=== PATIENT | male | born 1945 | race Caucasian/White ===

== ENCOUNTER 2022-04-04 15:31 | Emergency (ER) | payer MEDICARE, OTHER ==
[2022-04-04 16:12] VITALS: PULSE 62; RESP 16; TEMP 98
--- NOTE | 2022-04-04 17:48 | XR ---
EXAMINATION TYPE: XR shoulder complete LT DATE OF EXAM: 04/04/2022 COMPARISON: NONE HISTORY: Pain TECHNIQUE: 3 view FINDINGS: There is moderately severe osteoarthritis in the glenohumeral joint. No fracture seen. Ther e is calcification in the soft tissues at the medial aspect of the humeral neck. There is comminuted fracture of the lateral end of the clavicle. Scapula appears intact. IMPRESSION: Osteoarthritis. Comminuted clavicle fracture.
--- NOTE | 2022-04-04 17:49 | XR ---
EXAMINATION TYPE: XR clavicle LT DATE OF EXAM: 04/04/2022 COMPARISON: NONE HISTORY: Shoulder pain TECHNIQUE: 2 view FINDINGS: There is comminuted fracture lateral and of the left clavicle. Fracture line is 3 cm from t he AC joint. The acromion appears intact. IMPRESSION: Acute comminuted fracture of the lateral end of the clavicle. Fragments up to 7 mm.
--- NOTE | 2022-04-04 17:51 | ED ---
Fall HPI - General Chief Complaint: Fall Stated Complaint: Broken Collarbone Time Seen by Provider: 04/04/22 17:33 Source: patient, family Mode of arrival: ambulatory - History of Present Illness Initial Comments: This patient is 76-year-old man who states that he was running and tripped over a curb landing and striking the left shoulder. He states that he did feel something pop. He went to his physician's office had an x-ray and was directed come emergency department. There is no weakness or numbness into the left arm. He denies other injuries other than abrasion to the left side of his eyebrow. The patient believes that his tetanus status is up to date. MD Complaint: fall -: hour(s) Fall From: standing When Fall Occurred: 1-3 hours [employer] Fall Witnessed: yes, by family Place Fall Occurred: street Loss of Consciousness: none Prolonged Down Time?: no Location: face Location - Extremities: Left: Shoulder Severity: moderate Quality: aching Context: tripped/slipped - Related Data Previous Rx's Medication Instructions Recorded Ibuprofen [Motrin] 600 mg PO Q8HR PRN #20 tab 04/04/22 traMADol HCl [Ultram] 50 mg PO Q6H PRN #20 tab 04/04/22 Allergies Allergy/AdvReac Type Severity Reaction Status Date / Time codeine Allergy Unknown Verified 04/04/22 16:12 Review of Systems ROS Statement: Those systems with pertinent positive or pertinent negative responses have been documented in the HPI. ROS Other: All systems not noted in ROS Statement are negative. Constitutional: Denies: fever, chills, weakness Eyes: Denies: eye pain Respiratory: Denies: cough, dyspnea Cardiovascular: Denies: chest pain, palpitations, syncope Gastrointestinal: Denies: abdominal pain, vomiting Musculoskeletal: Reports: as per HPI, arthralgia. Denies: back pain Skin: Denies: rash Neurological: Denies: headache, weakness, numbness, paresthesias Past Medical History Past Medical History: Dementia History of Any Multi-Drug Resistant Organisms: None Reported Past Surgical History: No Surgical Hx Reported Past Psychological History: No Psychological Hx Reported Smoking Status: Never smoker Past Alcohol Use History: None Reported Past Drug Use History: None Reported General Exam Limitations: no limitations General appearance: alert, in no apparent distress Head exam: Present: atraumatic, normocephalic Eye exam: Present: normal appearance. Absent: scleral icterus, conjunctival injection Neck exam: Present: full ROM. Absent: tenderness Respiratory exam: Absent: chest wall tenderness GI/Abdominal exam: Present: soft. Absent: tenderness, guarding, rebound Extremities exam: Present: normal inspection, tenderness, normal capillary refill, other (Patient has tenderness to palpation left distal portion of the clavicle. There does appear to be deformity and some overlying swelling.) Back exam: Present: normal inspection. Absent: CVA tenderness (R), CVA tenderness (L), vertebral tenderness Neurological exam: Present: alert Skin exam: Present: warm, dry, intact, normal color. Absent: rash Course Vital Signs 04/04/22 16:06 Temperature 98 F Pulse Rate 62 Respiratory 16 Rate Disposition Clinical Impression: Fall, Clavicle fracture Disposition: HOME SELF-CARE Condition: Good Instructions (If sedation given, give patient instructions): Clavicle Fracture (ED) Prescriptions: Ibuprofen [Motrin] 600 mg PO Q8HR PRN #20 tab PRN Reason: Pain traMADol HCl [Ultram] 50 mg PO Q6H PRN #20 tab PRN Reason: Pain Is patient prescribed a controlled substance at d/c from ED?: Yes Referrals: Sergio Johnson DO [Primary Care Provider] - 1-2 days Meng Best MD [STAFF PHYSICIAN] - 1-2 days
[2022-04-04] MEDS ORDERED: traMADol 50 MG TAB PO STA (18:00)
[2022-04-04] MEDS ORDERED: IBUPROFEN 400 MG TAB PO STA (18:00)
== END 2022-04-04 18:21 | disposition home or self-care (01) ==
LOC: EC 15:31
DX: S42.002A Fracture of unspecified part of left clavicle, initial encounter for closed fracture (principal); Z88.5 Allergy status to narcotic agent; W10.1XXA Fall (on)(from) sidewalk curb, initial encounter
CPT/HCPCS: 99283

== ENCOUNTER 2022-08-25 05:11 | Inpatient (IN) | payer MEDICARE, OTHER ==
[2022-08-25 05:45] LABS: Basophils % (A) 0 %; Eosinophils # (A) 0.2 k/uL (0-0.7); Eosinophils % (A) 3 %; HCT 40.9 % (39.0-53.0); HGB 14.2 gm/dL (13.0-17.5); Lymphocytes # (A) 1.6 k/uL (1.0-4.8); Lymphocytes % (A) 26 %; MCH 31.6 pg (25.0-35.0); MCHC 34.7 g/dL (31.0-37.0); MCV 91.1 fL (80.0-100.0); Mean Platelet Volume 8.7; Monocytes # (A) 0.3 k/uL (0-1.0); Monocytes % (A) 5 %; Neutrophils # (A) 4.1 k/uL (1.3-7.7); Neutrophils % (A) 65 %; Platelet Count 146 k/uL (150-450); RBC 4.49 m/uL (4.30-5.90); RDW 12.8 % (11.5-15.5); WBC 6.4 k/uL (3.8-10.6)
[2022-08-25 05:51] LABS: Albumin 3.6 g/dL (3.5-5.0); Calcium 8.6 mg/dL (8.4-10.2); Potassium 3.8 mmol/L (3.5-5.1); Total Bilirubin 1.4 mg/dL (0.2-1.3); Total Protein 7.1 g/dL (6.3-8.2)
[2022-08-25 06:05] LABS: INR 1.1 (<1.2); Partial Thromboplastin Time 23.9 sec (22.0-30.0); Prothrombin Time 11.9 sec (9.0-12.0)
[2022-08-25 06:42] LABS: Appearance,Urine Cloudy (Clear); Bacteria,Urine Few /hpf; Bilirubin,Urine Negative (Negative); Blood,Urine Trace (Negative); Color,Urine Yellow; Glucose,Urine (UA) Negative (Negative); Ketones,Urine Negative (Negative); Leukocyte Esterase,Urine Large (Negative); Mucus,Urine Occasional /hpf; Nitrite,Urine Positive (Negative); PH, Urine 6.5 (5.0-8.0); Protein,Urine Trace (Negative); RBC,Urine 10 /hpf (0-5); Specific Gravity,Urine 1.017 (1.001-1.035); Urobilinogen,Urine <2.0 mg/dL (<2.0); WBC,Urine >182 /hpf (0-5)
[2022-08-25] MEDS ORDERED: NITROGLYCERIN SL TABS 0.4 MG TAB SUBLINGUAL PRN (07:34)
--- NOTE | 2022-08-25 08:21 | ED ---
Chest Pain HPI - General Chief Complaint: Chest Pain Stated Complaint: Chest Pain Time Seen by Provider: 08/25/22 05:19 Source: patient, family, EMS Mode of arrival: EMS Limitations: altered mental status - History of Present Illness Initial Comments: This patient is a 77-year-old man who presents with complaint of substernal chest pain. History comes from both the patient and family members who are with him. He reports that he had a ground-level fall and struck the anterior chest. He is not able to characterize the pain well. Indicates it is moderate intensity. No relieving factors. Little worse with pressing on the chest. Patient's family notes that he seems to be a little more confused than his usual and states that the last time that he was like this he had urinary tract infection. MD Complaint: chest pain -: unknown Onset: during rest Pain Location: substernal Pain Radiation: none Quality: dull Consistency: constant Improves With: nothing Worsens With: nothing Treatments Prior to Arrival: aspirin - Related Data Home Medications Medication Instructions Recorded Confirmed Memantine [Namenda] 5 mg PO BID 08/25/22 08/25/22 Tamsulosin [Flomax] 0.4 mg PO DAILY 08/25/22 08/25/22 Previous Rx's Medication Instructions Recorded Amoxic-Pot Clav 875-125Mg 1 tab PO Q12HR 1 Days #2 tab 08/28/22 [Augmentin 875-125] Aspirin 81 mg PO DAILY tab 08/28/22 Atorvastatin [Lipitor] 80 mg PO DAILY #30 tab 08/28/22 Clopidogrel [Plavix] 75 mg PO DAILY #30 tab 08/28/22 Isosorbide Mononitrate ER [Imdur] 30 mg PO DAILY #30 tab 08/28/22 Losartan [Cozaar] 12.5 mg PO DAILY #30 tab 08/28/22 Metoprolol Tartrate [Lopressor] 25 mg PO BID #60 tab 08/28/22 Allergies Allergy/AdvReac Type Severity Reaction Status Date / Time codeine Allergy Unknown Verified 09/04/22 13:51 Review of Systems ROS Statement: Those systems with pertinent positive or pertinent negative responses have been documented in the HPI. ROS Other: All systems not noted in ROS Statement are negative. Constitutional: Reports: weakness. Denies: fever, chills Respiratory: Denies: cough, dyspnea Cardiovascular: Reports: chest pain. Denies: palpitations, edema Gastrointestinal: Denies: abdominal pain, vomiting, diarrhea Genitourinary: Denies: dysuria, frequency Musculoskeletal: Denies: back pain Skin: Denies: rash Neurological: Denies: headache, weakness EKG Findings - EKG Results: EKG: interpreted by ADE, sinus rhythm (Rate 67 bpm), normal axis, normal QRS - Blocks, [place], Hypertrophy, ST Abn: Repolarization changes or abnormalities: nonspecific abnormality, ST segment, and/or T wave Past Medical History Past Medical History: Dementia History of Any Multi-Drug Resistant Organisms: None Reported Past Surgical History: No Surgical Hx Reported Past Psychological History: No Psychological Hx Reported Smoking Status: Never smoker Past Alcohol Use History: None Reported Past Drug Use History: None Reported - Past Family History Mother Family Medical History: Unable to Obtain Brother(s) Family Medical History: Deep Vein Thrombosis (DVT), Myocardial Infarction ([place]), Renal Disease General Exam General appearance: alert, in no apparent distress Head exam: Present: atraumatic, normocephalic Eye exam: Present: normal appearance. Absent: scleral icterus, conjunctival injection Neck exam: Present: normal inspection Respiratory exam: Present: normal lung sounds bilaterally, chest wall tenderness (Minimal tenderness adjacent sternum). Absent: respiratory distress, wheezes, rales, rhonchi, stridor, accessory muscle use Cardiovascular Exam: Present: regular rate, normal rhythm, normal heart sounds. Absent: systolic murmur, diastolic murmur, rubs, gallop GI/Abdominal exam: Present: soft. Absent: distended, tenderness, guarding, rebound, rigid, mass Extremities exam: Present: normal inspection, normal capillary refill. Absent: pedal edema, calf tenderness Back exam: Present: normal inspection. Absent: CVA tenderness (R), CVA tenderness (L) Neurological exam: Present: alert Skin exam: Present: warm, dry, intact, normal color. Absent: rash Course Vital Signs 08/25/22 08/25/22 08/25/22 05:13 05:50 07:36 Temperature 97.5 F L Pulse Rate 90 61 71 Respiratory 18 16 18 Rate Blood Pressure 122/74 114/76 118/75 O2 Sat by Pulse 94 L 95 96 Oximetry 08/25/22 08:15 Temperature Pulse Rate 61 Respiratory 18 Rate Blood Pressure 121/75 O2 Sat by Pulse 95 Oximetry Chest Pain MDM - MDM This patient is 77-year-old man presenting with chest pain that he stated was due to a fall though family disputes this. They do he is more confused and this is consistent with previous urinary tract infection. The patient is found to have urinary tract infection and also elevated troponin I. The patient will be admitted for antibiotic therapy and to have serial troponin measurements. The patient did have a chest x-ray which I interpreted as not showing acute infiltrate, pneumothorax, or congestive heart failure. Previous clavicle fracture Was pt. sent in by a medical professional or institution (, PA, [employer] [facility], urgent care, hospital, or skilled nursing...) When possible be specific @ -[No] Did you speak to anyone other than the patient for history (EMS, parent, family, police, friend...)? What history was obtained from this source @ -[Family is at bedside Did you review nursing and triage notes (agree or disagree)? Why? @ -[I reviewed and agree with nursing and triage notes] Were old charts reviewed (outside hosp., previous admission, EMS record, old EKG, old radiological studies, urgent care reports/EKG's, skilled nursing records)? Report findings @ -[No old charts were reviewed] Differential Diagnosis (chest pain, altered mental status, abdominal pain women, abdominal pain men, vaginal bleeding, weakness, fever, dyspnea, syncope, headache, dizziness, GI bleed, back pain, seizure, CVA, palpatations, mental health, musculoskeletal)? @ -[Differential Altered Mental Status: Hypoglycemia, DKA, hypercapnia, ETOH, overdose, CO poisoning, trauma, myxedema coma, HTN encephalopathy, infection, encephalitis, psychosis, intercranial hemorrhage, hepatic encephalopathy, meningitis, CVA, this is not meant to be an all-inclusive list Differential Chest Pain: Stable Angina, Unstable Angina, STEMI, NSTEMI Aortic Dissection, Pneumothorax, Musculoskeletal, Esophageal Spasm GERD, Cholecystitis, Pancreatitis, Zoster, this is not meant to be an all-inclusive list. EKG interpreted by me (3pts min.). @ -[As above] X-rays interpreted by me (1pt min.). @ -[As above CT interpreted by me (1pt min.). @ -[None done] U/S interpreted by me (1pt. min.). @ -[None done] What testing was considered but not performed or refused? (CT, X-rays, U/S, labs)? Why? @ -[None] What meds were considered but not given or refused? Why? @ -[None] Did you discuss the management of the patient with other professionals (professionals i.e. , PA, [employer], lab, RT, psych nurse, social media marketing specialist, jboss developer, teacher, youth officer, correctional case records supervisor)? Give summary @ -[Admitting physician Was smoking cessation discussed for >3mins.? @ -[No] Was critical care preformed (if so, how long)? @ -[No] Were there social determinants of health that impacted care today? How? (Homelessness, low income, unemployed, alcoholism, drug addiction, transportation, low edu. Level, literacy, decrease access to med. care, alf, rehab)? @ -[No] Was there de-escalation of care discussed even if they declined (Discuss DNR or withdrawal of care, Hospice)? DNR status @ -[No] What co-morbidities impacted this encounter? (DM, HTN, Smoking, COPD, CAD, Cancer, CVA, ARF, Chemo, Hep., AIDS, mental health diagnosis, sleep apnea, morbid obesity)? @ -[None] Was patient admitted / discharged? Hospital course, mention meds given and route, prescriptions, significant lab abnormalities, going to OR and other pertinent info. @ -[Admitted for antibiotic therapy, serial cardiac enzymes and cardiology consultation Undiagnosed new problem with uncertain prognosis? @ -[No] Drug Therapy requiring intensive monitoring for toxicity (Heparin, Nitro, Insulin, Cardizem)? @ -[No] Were any procedures done? @ -[No] Diagnosis/symptom? @ -[1. Urinary tract infection 2. Altered mental status 3. NSTEMI Acute, or Chronic, or Acute on Chronic? @ -[Acute Uncomplicated (without systemic symptoms) or Complicated (systemic symptoms)? @ -[Complicated Side effects of treatment? @ -[No] Exacerbation, Progression, or Severe Exacerbation? @ -[No] Poses a threat to life or bodily function? How? (Chest pain, [place], [place], pneumonia, PE, COPD, DKA, ARF, appy, cholecystitis, CVA, Diverticulitis, Homicidal, Suicidal, threat to staff... and all critical care pts) @ -[Yes, untreated urinary tract infection can progress to sepsis and . Disposition Clinical Impression: Urinary tract infection, NSTEMI (non-ST elevated myocardial infarction) Disposition: ADMITTED IP TO THIS HOSP Condition: Stable
[2022-08-25] MEDS ORDERED: LEVOFLOXACIN 750 MG TAB PO SCH (09:30)
--- NOTE | 2022-08-25 09:54 | XR ---
EXAMINATION TYPE: XR chest 2V DATE OF EXAM: 08/25/2022 COMPARISON: NONE HISTORY: Left shoulder pain following trauma TECHNIQUE: Frontal and lateral views of the chest are obtained. FINDINGS: There is a persistent fracture the distal left clavicle. There is marked degeneration of the left gle nohumeral joint and moderate degeneration of the right glenohumeral joint. The lungs are clear. There is no pleural effusion or pneumothorax. The heart size normal and the pulm onary vasculature is not congested. IMPRESSION: 1. No acute cardiopulmonary disease. 2. 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 Degeneration of the bilateral glenohumeral joints.
[2022-08-25] MEDS ORDERED: HEPARIN SODIUM 1,000 UN/ML (10ML VL) IV PRN (10:01)
[2022-08-25] MEDS ORDERED: HEPARIN SODIUM 1,000 UN/ML (10ML VL) IV ONE (10:01)
[2022-08-25] MEDS: HEPARIN SOD,PORK IN 0.45% NACL 25,000 UNIT in 0.45% NACL 1 250ML.BAG IV SCH (10:11)
--- NOTE | 2022-08-25 11:08 | P.HPIM ---
History of Present Illness H&P Date: 08/25/22 Chief Complaint: chest pain Patient is a 77-year-old male with a history of urinary tract infection, BPH, and memory impairment who presented to the ER with complaints of chest pain. In the ER he underwent extensive evaluation. On arrival vital signs within normal limits. Platelets were 146, d-dimer age-adjusted normal at 0.67, sodium 136, carbon dioxide 20, BUN 24, creatinine 1.44, glucose 116, total bilirubin 1.4, and troponin 0.171. Urinalysis was consistent with urinary tract infection. He was given a dose of aspirin by EMS. He was given a dose of Levaquin in the emergency department and arrangements were made for admission. His second tr oponinwas elevating at 1 and he was started on a heparin drip. Patient seen and examined at bedside with family present. He reports that he awoke today with complaints of chest pain on the left side. It does not radiate. He denies any pain up into his arms Lasch neck/jaw. He denies any shortness of breath, nausea, lightheadedness, dizziness. He has no history of any heart disease. His brother did have what sounds like an aortic aneurysm. He reports that he fell yesterday striking the left side of his chest and has been having chest pain since that time. His reports he did not tell her about the fall or the chest pain until this morning. They have noted increased urinary frequency the last few days and he does have a history of urinary tract infection in the past. He does not have frequent falls but fell last in March [facility]. Family reports a history of memory impairment. Vital signs reviewed General: nontoxic, no distress, appears at stated age Derm: warm, dry Eyes: EOMI, no lid lag, anicteric sclera, pupils equal round reactive to light ENT: Nose and ears atraumatic, no thrush, no pharyngeal erythema Cardiovascular: S1S2 reg, no murmur, positive posterior tibial pulse bilateral, no edema, capillary refill less than 2 seconds Lungs: clear to auscultation bilateral, no rhonchi, no rales, no wheeze, no accessory muscle use Abdominal: soft, nontender to palpation, no guarding, no appreciable organomegaly, normal bowel sounds Ext: no gross muscle atrophy, muscle strength 5 out of 5 in all 4 extremities, no contractures Neuro: CN II-XII grossly intact, light touch intact all 4 extremities, finger to nose within normal limits, Psych: Alert, oriented, appropriate affect Assessment: Non-ST segment elevated myocardial infarction - Type I versus type II given all -I asked the ER physician to obtain a chest x-ray which does not show any signs of pulmonary or cardiac contusion and there is no bruising at the site of his rib pain Urinary tract infection, uncomplicated Memory impairment Fall Imaging: Chest x-ray is reviewed by myself reveals no acute process EKG reviewed by me at a rate of 67 with less than 1 mm J point elevation in leads II, II, AVF Data Review: complaints of chest pain. In the ER he underwent extensive evaluation. On arrival vital signs within normal limits. Platelets were 146, d-dimer age- adjusted normal at 0.67, sodium 136, carbon dioxide 20, BUN 24, creatinine 1.44, glucose 116, total bilirubin 1.4, and troponin 0.171. Urinalysis was consistent with urinary tract infection. Plan: - Admit to Telemetry Unit - Heparin gtt, monitor ptt - NPO - Called for echo - Await repeat troponin - resume flomax 0.4 mg daily, Namenda 5 mg PO BID - ASA 81 mg daily, Lipitor 80 mg, Metoprolol 12.5 mg PO BID - Repeat EKG in AM - Safe and supportive environment - Await cardio consult The patient is admitted with an anticipated greater than 2 midnight stay for evaluation of [NSTEMI]. Surrogate decision-maker: CODE STATUS: Full code, no prolonged mechanical ventilation DVT prophylaxis: Heparin gtt Discussed with: Patient, nursing, family Anticipated discharge date: pending clinical course Anticipated discharge place: pending clinical course This dictation was prepared using [employer] voice recognition software. Though every attempt is made to correct errors during during dictation some may still exist. Past Medical History Past Medical History: Dementia, Memory Impairment, Prostate Disorder Additional Past Medical History / Comment(s): UTI in the past History of Any Multi-Drug Resistant Organisms: None Reported Past Surgical History: No Surgical Hx Reported Past Anesthesia/Blood Transfusion Reactions: No Reported Reaction Past Psychological History: No Psychological Hx Reported Smoking Status: Never smoker Past Alcohol Use History: None Reported Past Drug Use History: None Reported - Past Family History Mother Family Medical History: Unable to Obtain Brother(s) Family Medical History: Deep Vein Thrombosis (DVT), Myocardial Infarction ([place]), Renal Disease Medications and Allergies Home Medications Medication Instructions Recorded Confirmed Type Ibuprofen [Motrin] 600 mg PO Q8HR PRN #20 tab 04/04/22 Rx Memantine [Namenda] 5 mg PO BID 08/25/22 08/25/22 History Tamsulosin [Flomax] 0.4 mg PO DAILY 08/25/22 08/25/22 History Allergies Allergy/AdvReac Type Severity Reaction Status Date / Time codeine Allergy Unknown Verified 04/04/22 16:12 Physical Exam Osteopathic Statement: *. No significant issues noted on an osteopathic st ructural exam other than those noted in the History and Physical/Consult. Vitals: Vital Signs Temp Pulse Pulse Resp BP BP Pulse Ox 08/25/22 09:28 97.5 F L 69 18 111/73 96 08/25/22 08:15 61 18 121/75 95 08/25/22 07:36 71 18 118/75 96 08/25/22 05:50 61 16 114/76 95 08/25/22 05:13 97.5 F L 90 18 122/74 94 L Intake and Output 08/24/22 08/25/22 08/25/22 22:59 06:59 14:59 Other: Weight 74.843 kg 74.843 kg Results CBC & Chem 7: 08/25/22 05:20 08/25/22 05:20 Labs: Abnormal Lab Results - Last 24 Hours (Table) 08/25/22 08/25/22 08/25/22 Range/Units 05:20 05:20 05:20 Plt Count 146 L (150-450) k/uL D-Dimer 0.67 H (<0.60) mg/L FEU Sodium 136 L (137-145) mmol/L Carbon Dioxide 20 L (22-30) mmol/L BUN 24 H (9-20) mg/dL Creatinine 1.44 H (0.66-1.25) mg/dL Glucose 116 H (74-99) mg/dL Total Bilirubin 1.4 H (0.2-1.3) mg/dL Troponin I (0.000-0.034) ng/mL Urine Protein (Negative) Urine Blood (Negative) Ur Leukocyte Esterase (Negative) Urine RBC (0-5) /hpf Urine WBC (0-5) /hpf Urine Bacteria (None) /hpf Urine Mucus (None) /hpf 08/25/22 08/25/22 08/25/22 Range/Units 05:20 06:05 08:29 Plt Count (150-450) k/uL D-Dimer (<0.60) mg/L FEU Sodium (137-145) mmol/L Carbon Dioxide (22-30) mmol/L BUN (9-20) mg/dL Creatinine (0.66-1.25) mg/dL Glucose (74-99) mg/dL Total Bilirubin (0.2-1.3) mg/dL Troponin I 0.171 H* 1.180 H* (0.000-0.034) ng/mL Urine Protein Trace H (Negative) Urine Blood Trace H (Negative) Ur Leukocyte Esterase Large H (Negative) Urine RBC 10 H (0-5) /hpf Urine WBC >182 H (0-5) /hpf Urine Bacteria Few H (None) /hpf Urine Mucus Occasional H (None) /hpf Thrombosis Risk Factor Assmnt - Choose All That Apply Each Risk Factor Represents 3 Points: Age 75 years or older Thrombosis Risk Factor Assessment Total Risk Factor Score: 3 Thrombosis Risk Factor Assessment Level: Moderate Risk
[2022-08-25] MEDS ORDERED: NALOXONE 0.4 MG/ML 1 ML VIAL IV PRN (11:09)
[2022-08-25] MEDS ORDERED: ONDANSETRON 4 MG/2 ML VIAL IVP PRN (11:09)
[2022-08-25] MEDS ORDERED: MELATONIN 3 MG TABLET PO PRN (11:09)
[2022-08-25] MEDS: ATORVASTATIN 80 MG TAB PO SCH (11:47)
[2022-08-25] MEDS: MEMANTINE 5 MG TAB PO SCH ×2 (11:47→20:21)
[2022-08-25] MEDS: TAMSULOSIN 0.4 MG CAP.ER.24H PO SCH (11:47)
[2022-08-25 12:19] LABS: Basophils % (A) 0 %; Eosinophils # (A) 0.1 k/uL (0-0.7); Eosinophils % (A) 1 %; HCT 43.3 % (39.0-53.0); HGB 14.7 gm/dL (13.0-17.5); Lymphocytes # (A) 1.3 k/uL (1.0-4.8); Lymphocytes % (A) 20 %; MCHC 33.9 g/dL (31.0-37.0); MCV 91.6 fL (80.0-100.0); Mean Platelet Volume 8.5; Monocytes # (A) 0.3 k/uL (0-1.0); Monocytes % (A) 5 %; Neutrophils # (A) 4.6 k/uL (1.3-7.7); Neutrophils % (A) 73 %; Platelet Count 147 k/uL (150-450); RBC 4.73 m/uL (4.30-5.90); RDW 12.9 % (11.5-15.5); WBC 6.3 k/uL (3.8-10.6)
--- NOTE | 2022-08-25 12:34 | P.CRDCN ---
History of Present Illness Consult date: 08/25/22 Consult reason: chest pain, other (elevated trop) Chief complaint: chest pain History of present illness: History of present illness: Patient is a pleasant 77-year-old male with significant past medical history of prior UTIs, BPH, and dementia who presented with complaints of chest pain. Patient is a poor historian and unable to recall what happened. Family at bedside reports patient with a history of dementia and mentation is at his baseline. Spouse at bedside reports that he woke up about 4 AM this morning co mplaining of chest pain. Troponin was abnormal at 0.171, 1.180. UA was positive for infection. EKG shows sinus rhythm with nonspecific T-wave abnormalities, 67 bpm. Chest x-ray shows no acute findings, nonunion of the distal left clavicle fracture. He was started on a heparin drip. He denies any chest pain or shortness of breath presently. His main complaint currently is burning with urination. REVIEW OF SYSTEMS: No fever or chills. No cough or expectoration. No diaphoresis. Patient denies headache, dizziness, blurred vision, double vision. Patient denies any stomach discomfort. No nausea, vomiting. No hematochezia. No hematemesis. Denies any black stools or blood in his stools. Reports dysuria. No muscle weakness or numbness. No chest pain or pressure. PHYSICAL EXAMINATION: This is a 77-year-old male in no apparent distress at the time of my examination. HEENT: Head is atraumatic, normocephalic. Pupils are equal, round. Sclerae anicteric. Conjunctivae are clear. Mucous membranes of the mouth are moist. Neck is supple. There is no jugular venous distention. No carotid bruit is heard. CHEST EXAMINATION: Lungs are clear to auscultation. No chest wall tenderness is noted on palpation or with deep breathing. HEART EXAMINATION: Heart regular rate and rhythm. S1, S2 heard. No murmurs, gallops or rub. ABDOMEN: Soft, nontender. Bowel sounds are heard. No organomegaly noted. EXTREMITIES: 2+ peripheral pulses with no evidence of peripheral edema and no calf tenderness noted. NEUROLOGIC EXAMINATION: Patient is awake, alert and oriented x3. IMPRESSION AND PLAN: NSTEMI Elevated troponin Chest pain, concerning for unstable angina Urinary tract infection Dementia PLAN: Family at bedside was updated on results and plan of care. We discussed the recommendation for heart catheterization to further evaluate for heart blockage and intervention if indicated. Risks and benefits of procedure were discussed. We'll plan to proceed with heart catheterization tomorrow as long as he remains stable from his urinary tract infection. We'll check echocardiogram to evaluate heart function and structure. Continue to trend troponin. Patient was instructed to notify us if any chest pain recurs. Continue heparin drip for now. Nothing by mouth after midnight. I am dictating on behalf of Dr. Leonardo Padron's history/physical and assessment/plan. Past Medical History Past Medical History: Dementia, Memory Impairment, Prostate Disorder Additional Past Medical History / Comment(s): UTI in the past History of Any Multi-Drug Resistant Organisms: None Reported Past Surgical History: No Surgical Hx Reported Past Anesthesia/Blood Transfusion Reactions: No Reported Reaction Past Psychological History: No Psychological Hx Reported Smoking Status: Never smoker Past Alcohol Use History: None Reported Past Drug Use History: None Reported - Past Family History Mother Family Medical History: Unable to Obtain Brother(s) Family Medical History: Deep Vein Thrombosis (DVT), Myocardial Infarction ([place]), Renal Disease Medications and Allergies Home Medications Medication Instructions Recorded Confirmed Type Memantine [Namenda] 5 mg PO BID 08/25/22 08/25/22 History Tamsulosin [Flomax] 0.4 mg PO DAILY 08/25/22 08/25/22 History Allergies Allergy/AdvReac Type Severity Reaction Status Date / Time codeine Allergy Unknown Verified 08/25/22 11:14 Physical Exam Vitals: Vital Signs Temp Pulse Pulse Resp BP BP Pulse Ox 08/25/22 11:55 97.4 F L 78 18 106/71 95 08/25/22 09:28 97.5 F L 69 18 111/73 96 08/25/22 08:15 61 18 121/75 95 08/25/22 07:36 71 18 118/75 96 08/25/22 05:50 61 16 114/76 95 08/25/22 05:13 97.5 F L 90 18 122/74 94 L Intake and Output 08/24/22 08/25/22 08/25/22 22:59 06:59 14:59 Other: Weight 74.843 kg 74.843 kg Results 08/25/22 11:50 08/25/22 05:20 Cardiac Enzymes 08/25/22 08/25/22 08/25/22 Range/Units 05:20 05:20 08:29 AST 21 (17-59) U/L Troponin I 0.171 H* 1.180 H* (0.000-0.034) ng/mL Coagulation 08/25/22 Range/Units 05:20 PT 11.9 (9.0-12.0) sec APTT 23.9 (22.0-30.0) sec CBC 08/25/22 08/25/22 Range/Units 05:20 11:50 WBC 6.4 6.3 (3.8-10.6) k/uL RBC 4.49 4.73 (4.30-5.90) m/uL Hgb 14.2 14.7 (13.0-17.5) gm/dL Hct 40.9 43.3 (39.0-53.0) % Plt Count 146 L 147 L (150-450) k/uL Comprehensive Metabolic Panel 08/25/22 Range/Units 05:20 Sodium 136 L (137-145) mmol/L Potassium 3.8 (3.5-5.1) mmol/L Chloride 106 (98-107) mmol/L Carbon Dioxide 20 L (22-30) mmol/L BUN 24 H (9-20) mg/dL Creatinine 1.44 H (0.66-1.25) mg/dL Glucose 116 H (74-99) mg/dL Calcium 8.6 (8.4-10.2) mg/dL AST 21 (17-59) U/L ALT 16 (4-49) U/L Alkaline Phosphatase 90 (38-126) U/L Total Protein 7.1 (6.3-8.2) g/dL Albumin 3.6 (3.5-5.0) g/dL Current Medications Generic Name Dose Route Start Last Admin Trade Name Freq PRN Reason Stop Dose Admin Acetaminophen 650 mg 08/25/22 11:04 Acetaminophen Tab 325 Mg Tab PO Q4HR PRN Pain Aspirin 81 mg 08/26/22 09:00 Aspirin 81 Mg PO DAILY [facility] Atorvastatin Calcium 80 mg 08/25/22 12:00 08/25/22 11:47 Atorvastatin 80 Mg Tab PO 80 mg DAILY [facility] Administration Heparin Sodium (Porcine) 0 unit 08/25/22 10:01 Heparin Sodium 1,000 Un/Ml (10ml Vl) IV PER PROTOCOL PRN Low PTT Protocol Heparin Sodium/Sodium Chloride 250 mls @ 8.981 mls/hr 08/25/22 10:30 08/25/22 10:11 25,000 unit/ Sodium Chloride IV 12 units/kg/hr .Q24H JENSEN 8.981 mls/hr Administration Protocol 12 UNITS/KG/HR Ceftriaxone Sodium 1 gm/ 50 mls @ 100 mls/hr 08/26/22 09:00 Sodium Chloride IVPB Q24HR [facility] Protocol Melatonin 3 mg 08/25/22 11:09 Melatonin 3 Mg Tablet PO HS PRN Insomnia Memantine 5 mg 08/25/22 11:15 08/25/22 11:47 Memantine 5 Mg Tab PO 5 mg BID JENSEN Administration Metoprolol Tartrate 12.5 mg 08/25/22 21:00 Metoprolol Tartrate 12.5 Mg Tab PO BID [facility] Naloxone HCl 0.2 mg 08/25/22 11:09 Naloxone 0.4 Mg/Ml 1 Ml Vial IV Q2M PRN Opioid Reversal Nitroglycerin 0.4 mg 08/25/22 07:34 Nitroglycerin Sl Tabs 0.4 Mg Tab SUBLINGUAL Q5M PRN Chest Pain Ondansetron HCl 4 mg 08/25/22 11:09 Ondansetron 4 Mg/2 Ml Vial IVP Q8HR PRN Nausea And Vomiting Tamsulosin HCl 0.4 mg 08/25/22 11:15 08/25/22 11:47 Tamsulosin 0.4 Mg Cap.Er.24h PO 0.4 mg DAILY JENSEN Administration Intake and Output 08/24/22 08/25/22 08/25/22 22:59 06:59 14:59 Other: Weight 74.843 kg 74.843 kg Patient Weight 08/26/22 06:59 Weight 74.843 kg 08/25/22 11:50 08/25/22 05:20
--- NOTE | 2022-08-25 12:58 | CA ---
Transthoracic Echo Report Name: Wiliam Collins Age: 77 Gender: M : 1945 Exam Date: 08/25/2022 11:07 Exam Location: [facility] Ht (in): 72 Wt (lb): 170 Ordering Physician: Leelee Peralta DO Attending/Referring Phys: [id number], Kathryn Workshop Manager Cesar Melgar RDCS Procedure CPT: Indications: nstemi Cardiac Hx: HTN Technical Quality: Fair Contrast 1: Total Dose (mL): Contrast 2: Total Dose (mL): MEASUREMENTS (Male / Female) Normal Values 2D ECHO LV Diastolic Diameter PLAX 3.5 cm 4.2 - 5.9 / 3.9 - 5.3 cm LV Systolic Diameter PLAX 2.5 cm LV Fractional Shortening PLAX 29.3 % IVS Diastolic Thickness 1.3 cm 0.6 - 1.0 / 0.6 - 0.9 cm IVS Systolic Thickness 1.5 cm LVPW Diastolic Thickness 1.9 cm 0.6 - 1.0 / 0.6 - 0.9 cm LVPW Systolic Thickness 1.5 cm LV Relative Wall Thickness 0.9 RV Internal Dim ED PLAX 3.9 cm LVOT Diameter 2.4 cm LA Systolic Diameter LX 3.3 cm 3.0 - 4.0 / 2.7 - 3.8 cm LV Diastolic Volume MOD BP 88.6 cm??? 67 - 155 / 56 - 104 cm??? LV Systolic Volume MOD BP 47.0 cm??? 22 - 58 / 19 - 49 cm??? LV Ejection Fraction MOD BP 46.9 % >= 55 % LV Stroke Volume MOD BP 41.6 cm??? LV Diastolic Volume MOD 4C 92.9 cm??? LV Systolic Volume MOD 4C 45.9 cm??? LV Ejection Fraction MOD 4C 50.6 % LV Stroke Volume MOD 4C 47.0 cm??? LV Diastolic Length 4C 9.2 cm LV Systolic Length 4C 8.7 cm LV Diastolic Volume MOD 2C 82.6 cm??? LV Systolic Volume MOD 2C 43.8 cm??? LV Ejection Fraction MOD 2C 47.0 % LV Stroke Volume MOD 2C 38.9 cm??? LV Diastolic Length 2C 8.9 cm LV Systolic Length 2C 7.8 cm M-MODE Aortic Root Diameter MM 3.5 cm LA Systolic Diameter MM 4.3 cm LA Ao Ratio MM 1.2 MV E Point Septal Separation 1.2 cm AV Cusp Separation MM 1.4 cm DOPPLER AV Peak Velocity 72.7 cm/s AV Peak Gradient 2.1 mmHg MV Deceleration [place] 117.3 cm/s??? Mitral E Point Velocity 29.8 cm/s Mitral A Point Velocity 52.8 cm/s Mitral E to A Ratio 0.6 MV Deceleration Time 254.3 ms MV E' Velocity 4.9 cm/s Mitral E to MV E' Ratio 6.1 TR Peak Velocity 161.2 cm/s TR Peak Gradient 10.4 mmHg Right Ventricular Systolic Press 20.4 mmHg PV Peak Velocity 62.8 cm/s PV Peak Gradient 1.6 mmHg FINDINGS Left Ventricle Left ventricular ejection fraction is estimated at 45 %. Borderline left ventricular hypertrophy. Grade 1 diastolic dysfunction. Normal basal systolic function. [place] hypokinetic. Right Ventricle Normal right ventricular size and function. Right Atrium Normal right atrial size. Left Atrium Normal left atrial size. Mitral Valve Mitral valve thickened. Trace to mild mitral regurgitation. Aortic Valve Trileaflet aortic valve. No aortic stenosis. No aortic regurgitation. Tricuspid Valve Mild tricuspid regurgitation. Pulmonic Valve Structurally normal pulmonic valve. Pericardium Normal pericardium. No pericardial effusion. Aorta Mildly dilated aortic annulus. CONCLUSIONS Left ventricular ejection fraction 45% Apical hypokinesis with basal sparing, may be related to wraparound LAD disease versus Takatsubo's cardiomyopathy Trace to mild mitral regurgitation Mild tricuspid regurgitation Previewed by: Dr. Leonardo Padron DO (Electronically Signed) Final Date: 25 August 2022 12:58
[2022-08-25 13:03] LABS: INR 1.3 (<1.2); Partial Thromboplastin Time 79.3 sec (22.0-30.0); Prothrombin Time 12.9 sec (9.0-12.0)
[2022-08-25] MEDS: METOPROLOL TARTRATE 12.5 MG TAB PO SCH (20:21)
[2022-08-26] MEDS: ATORVASTATIN 80 MG TAB PO SCH (06:43)
[2022-08-26] MEDS: ASPIRIN 81 MG PO SCH (06:43)
[2022-08-26] MEDS: METOPROLOL TARTRATE 12.5 MG TAB PO SCH ×2 (06:43→20:49)
[2022-08-26] MEDS: TAMSULOSIN 0.4 MG CAP.ER.24H PO SCH (06:43)
[2022-08-26] MEDS: MEMANTINE 5 MG TAB PO SCH ×2 (06:46→20:48)
[2022-08-26] MEDS ORDERED: HEPARIN SODIUM,PORCINE 2,500 UNIT in SODIUM CHLORIDE 0.9% 250 ML IRRIGATION PRN (07:00)
[2022-08-26] MEDS ORDERED: HEPARIN SODIUM,PORCINE 10,000 UNIT in SODIUM CHLORIDE 0.9% 1,000 ML IRRIGATION PRN (07:00)
[2022-08-26 08:57] LABS: Basophils % (A) 0 %; Eosinophils # (A) 0.1 k/uL (0-0.7); Eosinophils % (A) 2 %; HGB 14.1 gm/dL (13.0-17.5); Lymphocytes # (A) 1.3 k/uL (1.0-4.8); Lymphocytes % (A) 26 %; MCH 30.2 pg (25.0-35.0); MCHC 32.9 g/dL (31.0-37.0); MCV 91.9 fL (80.0-100.0); Mean Platelet Volume 9.3; Monocytes # (A) 0.3 k/uL (0-1.0); Monocytes % (A) 5 %; Neutrophils # (A) 3.2 k/uL (1.3-7.7); Neutrophils % (A) 65 %; Platelet Count 141 k/uL (150-450); RBC 4.69 m/uL (4.30-5.90); WBC 4.9 k/uL (3.8-10.6)
[2022-08-26] MEDS ORDERED: ASPIRIN 325 MG TAB PO SCH (09:00)
[2022-08-26 09:04] LABS: INR 1.2 (<1.2); Prothrombin Time 12.6 sec (9.0-12.0)
[2022-08-26] MEDS ORDERED: NITROGLYCERIN SL TABS 0.4 MG TAB SUBLINGUAL PRN (09:47)
[2022-08-26] MEDS ORDERED: ALPRAZolam 0.5 MG TAB PO PRN (09:47)
[2022-08-26] MEDS ORDERED: ATORVASTATIN 80 MG TAB PO STA (09:47)
[2022-08-26] MEDS ORDERED: ALPRAZolam 0.25 MG TAB PO PRN (09:47)
[2022-08-26] MEDS ORDERED: ASPIRIN 81 MG PO STA (09:53)
--- NOTE | 2022-08-26 11:26 | P.PN ---
Subjective Progress Note Date: 08/26/22 Patient is a 77-year-old male with a history of urinary tract infection, BPH, and memory impairment who presented to the ER with complaints of chest pain. In the ER he underwent extensive evaluation. On arrival vital signs within normal limits. Platelets were 146, d-dimer age-adjusted normal at 0.67, sodium 136, carbon dioxide 20, BUN 24, creatinine 1.44, glucose 116, total bilirubin 1.4, and troponin 0.171. Urinalysis was consistent with urinary tract infection. He was given a dose of aspirin by EMS. He was given a dose of Levaquin in the emergency department and arrangements were made for admission. His second troponin was elevating at 1 and he was started on a heparin drip. Cardiology was contacted. He underwent echocardiogram which shows ejection fraction 45%. Patient seen and examined at bedside. No additional chest pain. Denies any shortness of breath, nausea, vomiting. Family present at bedside and all questions answered. Vital signs reviewed General: nontoxic, no distress, appears at stated age Cardiovascular: S1S2 reg, no murmur, positive posterior tibial pulse bilateral, Lungs: CTA bilateral, no rhonchi, no rales , no accessory muscle use Abdominal: soft, nontender to palpation, no guarding, no appreciable organomegaly Ext: no gross muscle atrophy, no edema, no contractures Neuro: CN II-XI grossly intact, no focal neuro deficits Psych: Alert, oriented, appropriate affect Assessment: Non-ST segment elevated myocardial infarction - Type I versus type II given fall Cardiomyopathy with EF 45% Urinary tract infection, uncomplicated Memory impairment Fall Imaging: Echo-Cardiomyopathy wtih EF 45% and apical hypokinesis Data Review: Vital signs reviewed temperature 97.2, pulse 69, respirations 20, blood pressure 122/71, O2 sat 96% on room air Laboratory analysis reviewed. Hemoglobin stable at 14.1, platelets 141 (147 yesterday), troponin 0.285 Plan: - Check Urine culture, was not ordered from ER - Darío Adam# 2 - Plan is for cath today - On heparin gtt - Lipitor 80 mg daily, aspirin 81 mg, metoprolol 12.5 mg twice daily - add cozaar 12.5 mg daily. - Cadrio Consult reviewed from 08/25: cath - flomax 0.4 mg daily, Namenda 5 mg PO BID DVT prophylaxis: Heparin gtt Anticipated discharge date: likely in AM Anticipated discharge place: Home This dictation was prepared using [employer] voice recognition software. Though every attempt is made to correct errors during during dictation some may still exist. Objective - Vital Signs Vital signs: Vital Signs Temp 97.2 F L 08/26/22 08:00 Pulse 59 L 08/26/22 08:00 Resp 20 08/26/22 08:00 BP 122/71 08/26/22 08:00 Pulse Ox 96 08/26/22 08:00 FiO2 Intake & Output 08/25/22 08/26/22 08/26/22 18:59 06:59 18:59 Intake Total 680 240 Balance 680 240 Weight 74.843 kg 75 kg Intake: Oral 680 240 Other: Voiding Method Toilet Toilet Toilet # Voids 6 4 2 - Labs CBC & Chem 7: 08/26/22 07:43 08/25/22 05:20 Labs: Abnormal Lab Results - Last 24 Hours (Table) 08/25/22 08/25/22 08/25/22 Range/Units 11:50 11:50 11:50 Plt Count 147 L (150-450) k/uL PT 12.9 H (9.0-12.0) sec INR 1.3 H (<1.2) APTT 79.3 H (22.0-30.0) sec Troponin I 1.440 H* (0.000-0.034) ng/mL 08/26/22 08/26/22 08/26/22 Range/Units 07:43 07:43 08:43 Plt Count 141 L (150-450) k/uL PT 12.6 H (9.0-12.0) sec INR 1.2 H (<1.2) APTT (22.0-30.0) sec Troponin I 0.285 H* (0.000-0.034) ng/mL
[2022-08-26] MEDS: HEPARIN SOD,PORK IN 0.45% NACL 25,000 UNIT in 0.45% NACL 1 250ML.BAG IV SCH (12:28)
[2022-08-26 13:27] LABS: Chol/HDL Ratio 3.04 Ratio; LDL Cholesterol,Calculated 101.4 mg/dL (0.0-131.0); VLDL Calculation 17.42 mg/dL (5.00-40.00)
[2022-08-26] MEDS ORDERED: IV FLUID CONTINUATION 500 ML IV ONE (14:30)
[2022-08-26] MEDS ORDERED: VERAPAMIL 2.5 MG/ML 2 ML AMP ONE (14:43)
[2022-08-26] MEDS ORDERED: HEPARIN SODIUM 1,000 UN/ML (10ML VL) ONE (14:44)
[2022-08-26] MEDS ORDERED: fentaNYL (PF) 50 MCG/ML 2 ML AMP ONE (14:44)
[2022-08-26] MEDS: MIDAZOLAM 2 MG/2 ML VIAL IV ONE ×2 (14:54→15:34)
[2022-08-26] MEDS ORDERED: LIDOCAINE 1% INJ 10MG/ML (5 ML VIAL-PF) SQ ONE (14:54)
[2022-08-26] MEDS: fentaNYL (PF) 50 MCG/ML 2 ML AMP IV ONE ×2 (14:54→15:34)
[2022-08-26] MEDS ORDERED: VERAPAMIL SYRINGE (5 MG/10 ML) INTRAARTER ONE (14:55)
[2022-08-26] MEDS: HEPARIN SODIUM 1,000 UN/ML (10ML VL) IV ONE ×3 (14:58→15:49)
[2022-08-26] MEDS ORDERED: CLOPIDOGREL 75 MG TAB ONE (15:09)
[2022-08-26] MEDS ORDERED: CLOPIDOGREL 75 MG TAB PO ONE (15:13)
[2022-08-26] MEDS: NITROGLYCERIN 1000MCG/10ML SYRINGE INTRACORON ONE ×5 (15:18→16:44)
[2022-08-26] MEDS ORDERED: IOPAMIDOL-370 125ML BTL INJ ONE ×2 (15:42→16:43)
[2022-08-26] MEDS ORDERED: PROPOFOL 10 MG/ML 20 ML VIAL IV ONE (16:10)
[2022-08-26] MEDS ORDERED: NITROGLYCERIN-D5W PMX 50 MG in DEXTROSE/WATER 1 250ML.BAG IV ONE (16:10)
[2022-08-26] MEDS ORDERED: ATROPINE SULFATE 0.1 MG/ML 10ML SYRINGE IV PRN (17:26)
[2022-08-26] MEDS ORDERED: MAG HYDROX/AL HYDROX/SIMETH 30 ML CUP PO PRN (17:26)
[2022-08-26] MEDS ORDERED: RX INFO: IV CONTRAST WAS GIVEN 1 EACH MISC MISCELLANE PRN (17:26)
--- NOTE | 2022-08-26 17:26 | P.PRCINT ---
Percutaneous Coronary Int. - Percutaneous Coronary Intervention Percutaneous Coronary Intervention: PROCEDURES PERFORMED: Left heart catheterization, bilateral coronary angiography, PCI mid to distal LAD with overlapping 4.0 x 33 and 3.0 x 33mm Xience DANELLE, post dilated with 4.0 NC balloon, IVUS LAD INDICATION: NSTEMI CONSENT:I have discussed the risks, benefits and alternative therapies for the above-mentioned procedure and for both sedation/analgesia as well as necessary blood product administration, if indicated, as they pertain to this patient. The patient has indicated understanding and acceptance of the risks and procedures discussed. PROCEDURE: After the risks, benefits and alternatives of the above mentioned procedure explained in detail with the patient, informed consent was obtained. Patient was taken to the catheterization lab and prepped and draped in usual fashion. 1% lidocaine was used to anesthetize the right radial artery. A 6- Citizen [place] sheath was placed in the right radial artery using modified Seldinger technique. Left coronary angiography was performed with a 5-Citizen [place] JL 3.[address] and right coronary angiography was performed with a 5-Citizen [place] JR5 catheter in various views. A 5-Citizen [place] FR5 catheter was inserted into the left ventricle and pressure measurements were obtained. The decision was made to perform PCI of the LAD. Heparin was given. A 6-Citizen [place] CLS 3.0 guide was he is engaged left main. Next a 0.014 BMW wire was advanced into the distal LAD. There was some backing out of the guide felt related to the degree of stenosis. Balloon angioplasty was then performed with a 3.0 x 12 mm balloon. Patient did have chest pain and additional 0.014 whisper wire was advanced more easily and of the distal LAD. Using a guideline or next balloon angioplasty was performed again with a 3.25 x 12mm NC balloon. IVUS was performed which showed distal reference lumen approximately 3.0 mm and more proximal diffuse disease however appears to be adequatelywith reference approximately 3.75 mm. Next a 3.0 x 33 mm Xience DANELLE was placed in the mid to distal LAD covering the moderate caliber diagonal 2 branch. Unfortunately patient was very agitated throughout the case and unable to stay still with movement of our equipment and concern of patient coming off the table. Therefore anesthesia was called to help with sedation. Post-dilation of the stent was performed with a 3.75 x 12 mm noncompliant balloon. Repeat angiography did show some recoil at the level of the lesion with still continued stenosis and therefore perform repeat wiring with a 0.014 BMW and then a 0.014 whisper wire. There was difficulty advancing IVUS catheter past the proximal edge of the stent as well as balloons. Eventually able to perform to balloon angioplasty with a 2.0 and then 3.0 balloon and then 4.0 noncompliant balloon. Next a 4.0 x 33 mm Xience DANELLE was placed overlapping the proximal edge of the stent. The overlap was postdilated with the stent balloon. There did appear to be distal edge stenosis on angiography however on repeat IVUS there was no dissection and given contrast threshold, no further intervention performed. Final angiograms were performed. Preintervention there was 99% stenosis and JULIETA 2 flow and postintervention there was less than 10% stenosis and JULIETA-3 flow. The right radial sheath was removed and a TR band was placed with hemostasis achieved. The patient tolerated the procedure however needed anesthesia. Patient was transported back to the post catheterization holding area in stable condition. Conscious Sedation: Patient was monitored under the direct supervision of myself for conscious sedation using Versed and fentanyl for a total duration of 114 minutes HEMODYNAMICS: Ao: 106/54 LV: 110/1, LVEDP 4 SELECTIVE CORONARY ARTERIOGRAPHY: LEFT MAIN: The left main is a large caliber vessel which bifurcates into the LAD and circumflex. There is no significant stenosis. LEFT ANTERIOR DESCENDING CORONARY ARTERY: LAD is a large caliber vessel which wraps around to the apex. There is diffuse mild 20-30% proximal LAD stenosis and then a mid LAD long 50% stenosis followed by a more focal 99% stenosis just proximal to a moderate caliber diagonal 2 branch. The distal LAD has diffuse 50-60% stenosis. LEFT CIRCUMFLEX CORONARY ARTERY: Left circumflex is a moderate caliber vessel with mild luminal irregularities. RIGHT CORONARY ARTERY: The right coronary artery is a large caliber vessel which gives off a PDA and PLV branch and is the dominant vessel. There mild luminal irregularities. FINAL IMPRESSION: 1. CAD as described above including mild luminal irregularities of RCA and circumflex and diffuse mid to distal LAD 50-60% and more focal 99% mid LAD stenosis. 2. S/p PCI mid to distal LAD with overlapping 4.0 x 33 and 3.0 x 33mm Xience DANELLE, post dilated with 4.0 NC balloon 3. Low normal left sided filling pressures PLAN: 1. Aggressive risk factor modification per most recent ACC/AHA guidelines. 2. Continue dual antiplatelets with aspirin and Plavix for 12 months
[2022-08-26] MEDS ORDERED: NITROGLYCERIN-D5W PMX 50 MG in DEXTROSE/WATER 1 250ML.BAG IV SCH (18:00)
[2022-08-26] MEDS: SODIUM CHLORIDE 0.9% 1,000 ML in EMPTY BAG 1 BAG IV SCH (18:08)
[2022-08-26] MEDS ORDERED: HEPARIN SODIUM 1,000 UN/ML (10ML VL) IV PRN (18:37)
[2022-08-26] MEDS ORDERED: HEPARIN SODIUM 1,000 UN/ML (10ML VL) IV ONE (18:37)
[2022-08-26] MEDS ORDERED: HEPARIN SOD,PORK IN 0.45% NACL 25,000 UNIT in 0.45% NACL 1 250ML.BAG IV SCH (18:45)
[2022-08-26 21:27] LABS: Basophils % (A) 0 %; Eosinophils % (A) 0 %; HCT 38.2 % (39.0-53.0); HGB 12.7 gm/dL (13.0-17.5); Lymphocytes # (A) 0.6 k/uL (1.0-4.8); Lymphocytes % (A) 8 %; MCH 30.7 pg (25.0-35.0); MCHC 33.3 g/dL (31.0-37.0); MCV 92.1 fL (80.0-100.0); Mean Platelet Volume 8.7; Monocytes # (A) 0.2 k/uL (0-1.0); Monocytes % (A) 3 %; Neutrophils # (A) 6.6 k/uL (1.3-7.7); Neutrophils % (A) 88 %; Platelet Count 137 k/uL (150-450); RBC 4.15 m/uL (4.30-5.90); RDW 12.6 % (11.5-15.5); WBC 7.5 k/uL (3.8-10.6)
[2022-08-26 21:58] LABS: INR 1.4 (<1.2); Prothrombin Time 14.3 sec (9.0-12.0)
[2022-08-27] MEDS: ACETAMINOPHEN TAB 325 MG TAB PO PRN ×2 (03:46→08:57)
[2022-08-27] MEDS: SODIUM CHLORIDE 0.9% 1,000 ML in EMPTY BAG 1 BAG IV SCH (06:27)
[2022-08-27] MEDS: ASPIRIN 81 MG PO SCH (08:56)
[2022-08-27] MEDS: METOPROLOL TARTRATE 12.5 MG TAB PO SCH (08:56)
[2022-08-27] MEDS: CLOPIDOGREL 75 MG TAB PO SCH (08:57)
[2022-08-27] MEDS: LOSARTAN 25 MG TAB PO SCH (08:57)
[2022-08-27] MEDS: TAMSULOSIN 0.4 MG CAP.ER.24H PO SCH (08:57)
[2022-08-27] MEDS: MEMANTINE 5 MG TAB PO SCH ×2 (08:58→20:50)
[2022-08-27] MEDS: ATORVASTATIN 80 MG TAB PO SCH (08:58)
[2022-08-27] MEDS ORDERED: METOPROLOL TARTRATE 12.5 MG TAB PO STA (10:29)
[2022-08-27 11:09] VITALS: BMI 3228.8
[2022-08-27 11:43] LABS: Basophils % (A) 0 %; Eosinophils % (A) 1 %; HCT 35.8 % (39.0-53.0); HGB 12.2 gm/dL (13.0-17.5); Lymphocytes # (A) 1.1 k/uL (1.0-4.8); Lymphocytes % (A) 15 %; MCH 31.4 pg (25.0-35.0); MCV 92.2 fL (80.0-100.0); Mean Platelet Volume 8.7; Monocytes # (A) 0.5 k/uL (0-1.0); Monocytes % (A) 6 %; Neutrophils # (A) 5.8 k/uL (1.3-7.7); Neutrophils % (A) 77 %; Platelet Count 139 k/uL (150-450); RBC 3.88 m/uL (4.30-5.90); RDW 12.7 % (11.5-15.5); WBC 7.5 k/uL (3.8-10.6)
[2022-08-27 12:02] LABS: Calcium 8.2 mg/dL (8.4-10.2); Potassium 4.1 mmol/L (3.5-5.1)
[2022-08-27 12:15] LABS: INR 1.3 (<1.2); Partial Thromboplastin Time 25.2 sec (22.0-30.0); Prothrombin Time 12.8 sec (9.0-12.0)
[2022-08-27] MEDS: ISOSORBIDE MONONITRATE ER 30 MG TAB.ER.24H PO SCH (12:54)
--- NOTE | 2022-08-27 13:38 | P.PN ---
Subjective Progress Note Date: 08/27/22 HISTORY OF PRESENT ILLNESS: Patient examined this morning at bedside. He is status post cardiac catheterization with PCI to the mid to distal LAD with overlapping drug-eluting stents. Patient denies any chest pain or pressure this morning. He denies any shortness of breath. Vital signs are stable. PHYSICAL EXAM: VITAL SIGNS: Reviewed. GENERAL: Well-developed in no acute distress. NECK: Supple. No JVD or thyromegaly LUNGS: Respirations even and unlabored. Lungs essentially clear to auscultation bilaterally. HEART: Regular rate and rhythm. S1 and S2 heard. EXTREMITIES: Normal range of motion. No clubbing or cyanosis. Peripheral pulses intact. No lower extremity edema ASSESSMENT: Non-STEMI, status post PCI of the mid to distal LAD Mild ischemic cardiomyopathy, ejection fraction 45% Urinary tract infection History of dementia PLAN: Continue dual antiplatelet therapy with aspirin and Plavix Continue high intensity statin Discontinue IV heparin and IV nitro Increase metoprolol to 25 mg twice a day Add Imdur 30 mg daily Anticipate discharge home tomorrow if patient remains stable Nurse practitioner note has been reviewed by physician. Signing provider agrees with the documented findings, assessment, and plan of care. Objective - Vital Signs Vital signs: Vital Signs Temp 97.5 F L 08/27/22 04:00 Pulse 62 08/27/22 12:00 Resp 18 08/27/22 08:00 BP 110/63 08/27/22 12:00 Pulse Ox 95 08/27/22 12:00 FiO2 Intake & Output 08/26/22 08/27/22 08/27/22 18:59 06:59 18:59 Intake Total 706.941 42 928 Output Total 1150 Balance 706.941 -1108 928 Weight 75 kg Intake: IV 502 Intake, IV Titration 204.941 42 Amount Heparin Sod,Pork in 0.45% 204.916 NaCl 25,000 unit In 0.45 % NaCl 1 250ml.bag @ 12 UNITS/KG/HR 8.981 mls/hr IV .Q24H JENSEN Rx#: [id number] Heparin Sod,Pork in 0.45% 42 NaCl 25,000 unit In 0.45 % NaCl 1 250ml.bag @ 12 UNITS/KG/HR 9 mls/hr IV . Q24H [facility] Rx#:[id number] Nitroglycerin-D5w Pmx 50 0.025 mg In Dextrose/Water 1 250ml.bag @ 5 MCG/MIN 1.5 mls/hr IV .Q24H [facility] Rx#: [id number] Oral 928 Output: Urine 1150 Uretheral (Young) 600 Other: Voiding Method Toilet Indwelling Catheter Indwelling Catheter # Voids 2 # Bowel Movements 1 - Labs CBC & Chem 7: 08/27/22 11:21 08/27/22 11:21 Labs: Abnormal Lab Results - Last 24 Hours (Table) 08/26/22 08/26/22 08/26/22 Range/Units 14:00 20:29 20:29 RBC 4.15 L (4.30-5.90) m/uL Hgb 12.7 L (13.0-17.5) gm/dL Hct 38.2 L (39.0-53.0) % Plt Count 137 L (150-450) k/uL Lymphocytes # 0.6 L (1.0-4.8) k/uL PT 14.3 H (9.0-12.0) sec INR 1.4 H (<1.2) APTT 64.4 H 153.0 H* (22.0-30.0) sec Chloride (98-107) mmol/L Carbon Dioxide (22-30) mmol/L Creatinine (0.66-1.25) mg/dL Glucose (74-99) mg/dL Calcium (8.4-10.2) mg/dL 08/27/22 08/27/22 08/27/22 Range/Units 01:12 11:21 11:21 RBC 3.88 L (4.30-5.90) m/uL Hgb 12.2 L (13.0-17.5) gm/dL Hct 35.8 L (39.0-53.0) % Plt Count 139 L (150-450) k/uL Lymphocytes # (1.0-4.8) k/uL PT (9.0-12.0) sec INR (<1.2) APTT 50.3 H (22.0-30.0) sec Chloride 110 H (98-107) mmol/L Carbon Dioxide 20 L (22-30) mmol/L Creatinine 1.28 H (0.66-1.25) mg/dL Glucose 105 H (74-99) mg/dL Calcium 8.2 L (8.4-10.2) mg/dL 08/27/22 Range/Units 11:21 RBC (4.30-5.90) m/uL Hgb (13.0-17.5) gm/dL Hct (39.0-53.0) % Plt Count (150-450) k/uL Lymphocytes # (1.0-4.8) k/uL PT 12.8 H (9.0-12.0) sec INR 1.3 H (<1.2) APTT (22.0-30.0) sec Chloride (98-107) mmol/L Carbon Dioxide (22-30) mmol/L Creatinine (0.66-1.25) mg/dL Glucose (74-99) mg/dL Calcium (8.4-10.2) mg/dL Microbiology - Last 24 Hours (Table) 08/26/22 14:00 Urine Culture - Preliminary Urine,Clean Catch
--- NOTE | 2022-08-27 14:54 | P.PN ---
Subjective Progress Note Date: 08/27/22 Patient is a 77-year-old male with a history of urinary tract infection, BPH, and memory impairment who presented to the ER with complaints of chest pain. In the ER he underwent extensive evaluation. On arrival vital signs within normal limits. Platelets were 146, d-dimer age-adjusted normal at 0.67, sodium 136, carbon dioxide 20, BUN 24, creatinine 1.44, glucose 116, total bilirubin 1.4, and troponin 0.171. Urinalysis was consistent with urinary tract infection. He was given a dose of aspirin by EMS. He was given a dose of Levaquin in the emergency department and arrangements were made for admission. His second troponin was elevating at 1 and he was started on a heparin drip. Cardiology was contacted. He underwent echocardiogram which shows ejection fraction 45%.Patient underwent cardiac catheterization on 08/26/22 and had 2 drug-eluting stents placed to the same lesion in the LAD. He tolerated the procedure well and was started on Plavix. He had some difficulty with catheterization or urinary retention per nursing. Patient seen and examined at bedside. Doing well. No additional chest pain. No shortness of breath. I had a long discussion with him and family regarding the importance of taking his stool antiplatelet therapy as well as rest of his medications. We also discussed home. He is agreeable. Vital signs reviewed General: nontoxic, no distress, appears at stated age Cardiovascular: S1S2 reg, no murmur, positive posterior tibial pulse bilateral, Lungs: CTA bilateral, no rhonchi, no rales , no accessory muscle use Abdominal: soft, nontender to palpation, no guarding, no appreciable organomegaly Ext: no gross muscle atrophy, no edema, no contractures Neuro: CN II-XI grossly intact, no focal neuro deficits Psych: Alert, oriented, appropriate affect Assessment: Acute non-ST segment elevated myocardial infarction status post PCI to the LAD with 2 stents Ischemic cardiomyopathy with ejection fraction 45% Urinary retention Urinary tract infection Memory impairment Fall Imaging: None additional Data Review: Vital signs reviewed. Pulse 83, respirations 18, blood pressure 129/71, O2 sat 98% on 2 L Labs reviewed after I saw the patient and weight blood cell count 7.5, hemoglobin 12.2, platelets 139, INR 1.3, chloride 110, carbon dioxide 20, creatinine 1.28 (down from 1.44) Plan: - cardiology note reviewed. Antiplatelet therapy, high intensity statin, off IV heparin and nitro, increase metoprolol to 25 mg twice daily and Imdur 30 mg daily - await urine culture - Darío Adam# 3 - Lipitor 80 mg daily, aspirin 81 mg, metoprolol 25 mg twice daily, cozaar 12.5 mg daily. - flomax 0.4 mg daily, Namenda 5 mg PO BID -Consult Dr. Francis DVT prophylaxis: Heparin Anticipated discharge date: likely in AM Anticipated discharge place: Home This dictation was prepared using [employer] voice recognition software. Though every attempt is made to correct errors during during dictation some may still exist. Objective - Vital Signs Vital signs: Vital Signs Temp 97.5 F L 08/27/22 04:00 Pulse 62 08/27/22 12:00 Resp 18 08/27/22 08:00 BP 110/63 08/27/22 12:00 Pulse Ox 95 08/27/22 12:00 FiO2 Intake & Output 08/26/22 08/27/22 08/27/22 18:59 06:59 18:59 Intake Total 706.941 42 928 Output Total 1150 1350 Balance 706.941 -1108 -422 Weight 75 kg Intake: IV 502 Intake, IV Titration 204.941 42 Amount Heparin Sod,Pork in 0.45% 204.916 NaCl 25,000 unit In 0.45 % NaCl 1 250ml.bag @ 12 UNITS/KG/HR 8.981 mls/hr IV .Q24H JENSEN Rx#: [id number] Heparin Sod,Pork in 0.45% 42 NaCl 25,000 unit In 0.45 % NaCl 1 250ml.bag @ 12 UNITS/KG/HR 9 mls/hr IV . Q24H JENSEN Rx#:[id number] Nitroglycerin-D5w Pmx 50 0.025 mg In Dextrose/Water 1 250ml.bag @ 5 MCG/MIN 1.5 mls/hr IV .Q24H JENSEN Rx#: [id number] Oral 928 Output: Urine 1150 1350 Uretheral (Young) 600 Other: Voiding Method Toilet Indwelling Catheter Indwelling Catheter # Voids 2 # Bowel Movements 1 - Labs CBC & Chem 7: 08/27/22 11:21 08/27/22 11:21 Labs: Abnormal Lab Results - Last 24 Hours (Table) 08/26/22 08/26/22 08/26/22 Range/Units 14:00 20:29 20:29 RBC 4.15 L (4.30-5.90) m/uL Hgb 12.7 L (13.0-17.5) gm/dL Hct 38.2 L (39.0-53.0) % Plt Count 137 L (150-450) k/uL Lymphocytes # 0.6 L (1.0-4.8) k/uL PT 14.3 H (9.0-12.0) sec INR 1.4 H (<1.2) APTT 64.4 H 153.0 H* (22.0-30.0) sec Chloride (98-107) mmol/L Carbon Dioxide (22-30) mmol/L Creatinine (0.66-1.25) mg/dL Glucose (74-99) mg/dL Calcium (8.4-10.2) mg/dL 08/27/22 08/27/22 08/27/22 Range/Units 01:12 11:21 11:21 RBC 3.88 L (4.30-5.90) m/uL Hgb 12.2 L (13.0-17.5) gm/dL Hct 35.8 L (39.0-53.0) % Plt Count 139 L (150-450) k/uL Lymphocytes # (1.0-4.8) k/uL PT (9.0-12.0) sec INR (<1.2) APTT 50.3 H (22.0-30.0) sec Chloride 110 H (98-107) mmol/L Carbon Dioxide 20 L (22-30) mmol/L Creatinine 1.28 H (0.66-1.25) mg/dL Glucose 105 H (74-99) mg/dL Calcium 8.2 L (8.4-10.2) mg/dL 08/27/22 Range/Units 11:21 RBC (4.30-5.90) m/uL Hgb (13.0-17.5) gm/dL Hct (39.0-53.0) % Plt Count (150-450) k/uL Lymphocytes # (1.0-4.8) k/uL PT 12.8 H (9.0-12.0) sec INR 1.3 H (<1.2) APTT (22.0-30.0) sec Chloride (98-107) mmol/L Carbon Dioxide (22-30) mmol/L Creatinine (0.66-1.25) mg/dL Glucose (74-99) mg/dL Calcium (8.4-10.2) mg/dL Microbiology - Last 24 Hours (Table) 08/26/22 14:00 Urine Culture - Preliminary Urine,Clean Catch
[2022-08-27] MEDS: HEPARIN SODIUM,PORCINE/PF 5,000 UNIT/0.5 ML SYRINGE SQ SCH ×2 (17:39→23:52)
[2022-08-27] MEDS: METOPROLOL TARTRATE 25 MG TAB PO SCH (20:50)
[2022-08-28] MEDS: LOSARTAN 25 MG TAB PO SCH (09:03)
[2022-08-28] MEDS: HEPARIN SODIUM,PORCINE/PF 5,000 UNIT/0.5 ML SYRINGE SQ SCH (09:03)
[2022-08-28] MEDS: ASPIRIN 81 MG PO SCH (09:04)
[2022-08-28] MEDS: METOPROLOL TARTRATE 25 MG TAB PO SCH (09:04)
[2022-08-28] MEDS: ATORVASTATIN 80 MG TAB PO SCH (09:04)
[2022-08-28] MEDS: CLOPIDOGREL 75 MG TAB PO SCH (09:04)
[2022-08-28] MEDS: MEMANTINE 5 MG TAB PO SCH (09:04)
[2022-08-28] MEDS: ISOSORBIDE MONONITRATE ER 30 MG TAB.ER.24H PO SCH (09:04)
[2022-08-28] MEDS: TAMSULOSIN 0.4 MG CAP.ER.24H PO SCH (09:04)
[2022-08-28 10:00] VITALS: RESP 17
[2022-08-28 12:19] VITALS: BP 100/63; PULSE 63; TEMP 97.6
[2022-08-28] MEDS: ACETAMINOPHEN TAB 325 MG TAB PO PRN (12:57)
--- NOTE | 2022-08-28 13:30 | P.DS ---
Providers Date of admission: 08/25/22 07:39 Expected date of discharge: 08/28/22 Attending physician: Arnold Valentine MD Consults: 08/25/22 07:37 Consult Physician Routine Consulting Provider: Fly Milan Consult Reason/Comments: elevated troponin Do you want consulting provider notified?: Yes 08/26/22 17:26 Consult Physician Routine Consulting Provider: [facility] Consult Reason/Comments: Post Interventional Patient Do you want consulting provider notified?: Already Contacted 08/27/22 11:42 Consult Physician Routine Consulting Provider: Jered Prasad Consult Reason/Comments: Urinary retention Do you want consulting provider notified?: Yes Primary care physician: [facility] Course: Discharge Diagnosis: Acute non-ST segment elevated myocardial infarction status post PCI to the LAD with 2 stents Ischemic cardiomyopathy with ejection fraction 45% Urinary retention Urinary tract infection Memory impairment [facility] Hospital Course: Patient is a 77-year-old male with a history of urinary tract infection, BPH, and memory impairment who presented to the ER with complaints of chest pain. In the ER he underwent extensive evaluation. On arrival vital signs within normal limits. Platelets were 146, d-dimer age-adjusted normal at 0.67, sodium 136, carbon dioxide 20, BUN 24, creatinine 1.44, glucose 116, total bilirubin 1.4, and troponin 0.171. Urinalysis was consistent with urinary tract infection. He was given a dose of aspirin by EMS. He was given a dose of Levaquin in the emergency department and arrangements were made for admission. His second troponin was elevating at 1 and he was started on a heparin drip. Cardiology was contacted. He underwent echocardiogram which shows ejection fraction 45%.Patient underwent cardiac catheterization on 08/26/22 and had 2 drug-eluting stents placed to the same lesion in the LAD. He tolerated the procedure well and was started on Plavix. He had some difficulty with catheterization or urinary retention per nursing. He was seen by urology and arrangements are made for him to go home with a Gupta catheter. He did well and was determined stable for discharge Follow-up: Dr. Padron in 1 week, Dr. Prasad in [address] Johnson. Maintain gupta until follow-up with Dr. Prasad. Residential home care. Medications inc lude aspirin, Plavix, which responds to Lipitor, metoprolol, and culture. Patient seen and examined at bedside. No chest, SOB, [place] or vomiting. Family at bedside and all questions answered. Vital signs reviewed and stable. General: nontoxic, no distress, appears at stated age Derm: warm, dry Head: atraumatic, normocephalic, symmetric Eyes: EOMI, no lid lag, anicteric sclera Mouth: no lip lesion, mucus membranes moist Cardiovascular: S1S2 reg, no murmur, positive posterior tibial pulse bilateral, Lungs: CTA bilateral, no rhonchi, no rales , no accessory muscle use Abdominal: soft, nontender to palpation, no guarding, no appreciable organomegaly Ext: no gross muscle atrophy, no edema, no [id number] Neuro: CN II-XI grossly intact, no focal neuro deficits Psych: Alert, oriented, appropriate affect A total of 37 minutes of time were spent preparing this complex discharge summary. Patient was discharged on 08/28/22. This dictation was prepared using [employer] voice recognition software. Though every attempt is made to correct errors during during dictation some may still exist. Patient Condition at Discharge: Stable Plan - Discharge Summary New Discharge Prescriptions: New Aspirin 81 mg PO DAILY tab Losartan [Cozaar] 12.5 mg PO DAILY #30 tab Atorvastatin [Lipitor] 80 mg PO DAILY #30 tab Metoprolol Tartrate [Lopressor] 25 mg PO BID #60 tab Clopidogrel [Plavix] 75 mg PO DAILY #30 tab Amoxic-Pot Clav 875-125Mg [Augmentin 875-125] 1 tab PO Q12HR 1 Days #2 tab Isosorbide Mononitrate ER [Imdur] 30 mg PO DAILY #30 tab Continue Memantine [Namenda] 5 mg PO BID Tamsulosin [Flomax] 0.4 mg PO DAILY Discharge Medication List Memantine [Namenda] 5 mg PO BID 08/25/22 [History] Tamsulosin [Flomax] 0.4 mg PO DAILY 08/25/22 [History] Amoxic-Pot Clav 875-125Mg [Augmentin 875-125] 1 tab PO Q12HR 1 Days #2 tab 06/21 [Rx] Aspirin 81 mg PO DAILY tab 08/28/22 [Rx] Atorvastatin [Lipitor] 80 mg PO DAILY #30 tab 08/28/22 [Rx] Clopidogrel [Plavix] 75 mg PO DAILY #30 tab 08/28/22 [Rx] Isosorbide Mononitrate ER [Imdur] 30 mg PO DAILY #30 tab 08/28/22 [Rx] Losartan [Cozaar] 12.5 mg PO DAILY #30 tab 08/28/22 [Rx] Metoprolol Tartrate [Lopressor] 25 mg PO BID #60 tab 08/28/22 [Rx] Follow up Appointment(s)/Referral(s): Leonardo Padron DO [STAFF PHYSICIAN] - 1 Week [facility]idential [place] [NON-STAFF] - Sergio Johnson DO [Primary Care Provider] - 1 Week Jered Prasad MD [STAFF PHYSICIAN] - 1 Week Activity/Diet/Wound Care/Special Instructions: Activity: as tolerated Diet: Heart healthy Special Instructions: Maintain gupta until seen by Dr. Prasad Discharge/Stand Alone Forms: Who Do I Call?, Personal Low Pressure Firer
--- NOTE | 2022-08-28 13:30 | P.PN ---
Subjective Progress Note Date: 08/28/22 HISTORY OF PRESENT ILLNESS: Patient examined this morning at bedside. He is status post cardiac catheterization with PCI to the mid to distal LAD with overlapping drug-eluting stents. Patient denies any chest pain or pressure this morning. He denies any shortness of breath. Vital signs are stable. 08/28/2022 Patient examined this afternoon at the bedside. He denies chest pain or pressure. He denies shortness of breath. Vital signs are stable. PHYSICAL EXAM: VITAL SIGNS: Reviewed. GENERAL: Well-developed in no acute distress. NECK: Supple. No JVD or thyromegaly LUNGS: Respirations even and unlabored. Lungs essentially clear to auscultation bilaterally. HEART: Regular rate and rhythm. S1 and S2 heard. EXTREMITIES: Normal range of motion. No clubbing or cyanosis. Peripheral pulses intact. No lower extremity edema ASSESSMENT: Non-STEMI, status post PCI of the mid to distal LAD Mild ischemic cardiomyopathy, ejection fraction 45% Urinary tract infection History of dementia PLAN: Continue dual antiplatelet therapy with aspirin and Plavix Continue high intensity statin Continue additional cardiac medications Patient is stable for discharge home today from a cardiac standpoint Nurse practitioner note has been reviewed by physician. Signing provider agrees with the documented findings, assessment, and plan of care. Objective - Vital Signs Vital signs: Vital Signs Temp 97.6 F 08/28/22 12:00 Pulse 63 08/28/22 12:00 Resp 17 08/28/22 12:00 BP 100/63 08/28/22 12:00 Pulse Ox 95 08/28/22 12:00 FiO2 Intake & Output 08/27/22 08/28/22 08/28/22 18:59 06:59 18:59 Intake Total 1228 418 Output Total 1350 1000 Balance -122 -1000 418 Weight 75 kg Intake: Oral 1228 418 Output: Urine 1350 1000 Other: Voiding Method Indwelling Catheter Indwelling Catheter Indwelling Catheter # Bowel Movements 1 - Labs CBC & Chem 7: 08/27/22 11:21 08/27/22 11:21 Labs: Microbiology - Last 24 Hours (Table) 08/26/22 14:00 Urine Culture - Final Urine,Clean Catch
--- NOTE | 2022-08-28 17:13 | P.GSCN ---
History of Present Illness Consult date: 08/28/22 Reason for Consult: urinary retention History of present illness: This is a 77-year-old male status post cardiac catheterization yesterday deve alma deliad urinary retention post procedure. Patient is well-known to Dr. Prasad and he follows up with him for BPH and is on Flomax at baseline. denies any gross hematuria or dysuria. Per patient he does have history of urinary retention in the past. No history of recurrent UTIs or kidney stones. Patient does have dementia, and he is not back to his baseline. Review of Systems ROS unobtainable: due to mental status Past Medical History Past Medical History: Dementia, Memory Impairment, Prostate Disorder Additional Past Medical History / Comment(s): UTI in the past History of Any Multi-Drug Resistant Organisms: None Reported Past Surgical History: No Surgical Hx Reported Past Anesthesia/Blood Transfusion Reactions: No Reported Reaction Past Psychological History: No Psychological Hx Reported Smoking Status: Never smoker Past Alcohol Use History: None Reported Past Drug Use History: None Reported - Past Family History Mother Family Medical History: Unable to Obtain Brother(s) Family Medical History: Deep Vein Thrombosis (DVT), Myocardial Infarction ([place]), Renal Disease Medications and Allergies Home Medications Medication Instructions Recorded Confirmed Type Memantine [Namenda] 5 mg PO BID 08/25/22 08/25/22 History Tamsulosin [Flomax] 0.4 mg PO DAILY 08/25/22 08/25/22 History Amoxic-Pot Clav 875-125Mg 1 tab PO Q12HR 1 Days #2 tab 08/28/22 Rx [Augmentin 875-125] Aspirin 81 mg PO DAILY tab 08/28/22 Rx Atorvastatin [Lipitor] 80 mg PO DAILY #30 tab 08/28/22 Rx Clopidogrel [Plavix] 75 mg PO DAILY #30 tab 08/28/22 Rx Isosorbide Mononitrate ER [Imdur] 30 mg PO DAILY #30 tab 08/28/22 Rx Losartan [Cozaar] 12.5 mg PO DAILY #30 tab 08/28/22 Rx Metoprolol Tartrate [Lopressor] 25 mg PO BID #60 tab 08/28/22 Rx Allergies Allergy/AdvReac Type Severity Reaction Status Date / Time codeine Allergy Unknown Verified 08/25/22 11:14 Surgical - Exam Vital Signs Temp Pulse Resp BP Pulse Ox 97.5 F L 90 18 122/74 94 L 08/25/22 05:13 08/25/22 05:13 08/25/22 05:13 08/25/22 05:13 08/25/22 05:13 - General no distress, no pain - Eyes normal ocular movement, no pale - ENT normal nares, normal mucosa - Respiratory normal expansion, normal respiratory effort - Abdomen Abdomen: soft, non tender - Psychiatric oriented to time, oriented to person, oriented to place Results - Labs 08/27/22 11:21 08/27/22 11:21 Microbiology - Last 24 Hours (Table) 08/26/22 14:00 Urine Culture - Final Urine,Clean Catch Assessment and Plan Assessment: 77-year-old male patient of Dr. Prasad follows up with him for BPH on Flomax at baseline. Developed retention post cardiac catheterization. retention amount is unknown Patient does have dementia and is not completely back to baseline per patient -Continue Flomax -Recommend discharge home with the Young catheter, advised to follow up with Dr. Prasad in 1 week,. Advice patient to remove the catheter 6 hours prior to the follow-up appointment
== END 2022-08-28 15:24 | disposition home health service (06) | DRG 247 ==
LOC: EC 05:11 → 3SCARD 07:39
PROVIDERS: ADMIT Internal Medicine; ATTEND Internal Medicine
PROC: 4A023N7 Measurement of Cardiac Sampling and Pressure, Left Heart, Percutaneous Approach (ICD-10-PCS; principal; 2022-08-26 12:30)
PROC: 027035Z Dilation of Coronary Artery, One Artery with Two Drug-eluting Intraluminal Devices, Percutaneous Approach (ICD-10-PCS; principal; 2022-08-26 12:30)
PROC: B240ZZ3 Ultrasonography of Single Coronary Artery, Intravascular (ICD-10-PCS; principal; 2022-08-26 12:30)
PROC: B2111ZZ Fluoroscopy of Multiple Coronary Arteries using Low Osmolar Contrast (ICD-10-PCS; principal; 2022-08-26 12:30)
DX: I21.4 Non-ST elevation (NSTEMI) myocardial infarction (principal); N39.0 Urinary tract infection, site not specified; S42.032K Displaced fracture of lateral end of left clavicle, subsequent encounter for fracture with nonunion; F03.90 Unspecified dementia, unspecified severity, without behavioral disturbance, psychotic disturbance, mood disturbance, and anxiety; I25.10 Atherosclerotic heart disease of native coronary artery without angina pectoris; I25.5 Ischemic cardiomyopathy; N40.1 Benign prostatic hyperplasia with lower urinary tract symptoms; R33.8 Other retention of urine; W01.10XA Fall on same level from slipping, tripping and stumbling with subsequent striking against unspecified object, initial encounter; Z87.440 Personal history of urinary (tract) infections; Z79.899 Other long term (current) drug therapy; Z88.5 Allergy status to narcotic agent
CPT/HCPCS: 36415; 71046; 80048; 80053; 80061; 81001; 83735; 84484; 85025; 85379; 85610; 85730; 87086; 92978; 93005; 93306; 93458; 94760; 99285

== ENCOUNTER 2022-09-04 13:29 | Emergency (ER) | payer MEDICARE, OTHER ==
[2022-09-04 15:16] LABS: Appearance,Urine Clear (Clear); Bilirubin,Urine Negative (Negative); Blood,Urine Small (Negative); Color,Urine Light Yellow; Glucose,Urine (UA) Negative (Negative); Ketones,Urine Negative (Negative); Leukocyte Esterase,Urine Moderate (Negative); Mucus,Urine Rare /hpf; Nitrite,Urine Negative (Negative); PH, Urine 5.5 (5.0-8.0); Protein,Urine Negative (Negative); RBC,Urine 15 /hpf (0-5); Specific Gravity,Urine 1.014 (1.001-1.035); Urobilinogen,Urine <2.0 mg/dL (<2.0); WBC,Urine 3 /hpf (0-5)
--- NOTE | 2022-09-04 15:46 | ED ---
General Adult HPI - General Chief complaint: Recheck/Abnormal Lab/Rx Stated complaint: Cath issues Time Seen by Provider: 09/04/22 13:50 Source: patient, RN notes reviewed, old records reviewed Mode of arrival: ambulatory Limitations: no limitations - History of Present Illness Initial comments: This is a 77-year-old male who presents emergency Department complaining that the catheter was burning. Patient states to mildly was postictal Go tomorrow morning but he can't stand it any longer and wants the catheter out today. Patient states she's got an appointment with Dr. Melvin tomorrow afternoon. Patient denies any fever chills patient denies any back pain patient denies any abdominal pain - Related Data Home Medications Medication Instructions Recorded Confirmed Memantine [Namenda] 5 mg PO BID 08/25/22 08/25/22 Tamsulosin [Flomax] 0.4 mg PO DAILY 08/25/22 08/25/22 Previous Rx's Medication Instructions Recorded Amoxic-Pot Clav 875-125Mg 1 tab PO Q12HR 1 Days #2 tab 08/28/22 [Augmentin 875-125] Aspirin 81 mg PO DAILY tab 08/28/22 Atorvastatin [Lipitor] 80 mg PO DAILY #30 tab 08/28/22 Clopidogrel [Plavix] 75 mg PO DAILY #30 tab 08/28/22 Isosorbide Mononitrate ER [Imdur] 30 mg PO DAILY #30 tab 08/28/22 Losartan [Cozaar] 12.5 mg PO DAILY #30 tab 08/28/22 Metoprolol Tartrate [Lopressor] 25 mg PO BID #60 tab 08/28/22 Allergies Allergy/AdvReac Type Severity Reaction Status Date / Time codeine Allergy Unknown Verified 09/04/22 13:51 Review of Systems ROS Statement: Those systems with pertinent positive or pertinent negative responses have been documented in the HPI. ROS Other: All systems not noted in ROS Statement are negative. Past Medical History Past Medical History: Dementia, Memory Impairment, Prostate Disorder Additional Past Medical History / Comment(s): UTI in the past History of Any Multi-Drug Resistant Organisms: None Reported Past Surgical History: No Surgical Hx Reported Past Anesthesia/Blood Transfusion Reactions: No Reported Reaction Past Psychological History: No Psychological Hx Reported Smoking Status: Never smoker Past Alcohol Use History: None Reported Past Drug Use History: None Reported - Past Family History Mother Family Medical History: Unable to Obtain Brother(s) Family Medical History: Deep Vein Thrombosis (DVT), Myocardial Infarction ([place]), Renal Disease General Exam - General Exam Comments Initial Comments: GENERAL Patient is well-developed and well-nourished. Patient is in mild distress. EYES Patient's pupils are equal and round. Extraocular motion is intact SKIN Unremarkable NEURO The patient is alert and oriented 3 PYSCH Patient has normal interpersonal interactions. ABDOMINAL No abdominal pain Limitations: no limitations Course Vital Signs 09/04/22 13:49 Temperature 98.4 F Pulse Rate 68 Respiratory 20 Rate Blood Pressure 99/67 O2 Sat by Pulse 96 Oximetry Medical Decision Making - Medical Decision Making Was pt. sent in by a medical professional or institution (, DEANNA, SHIP ENGINEER, urgent care, hospital, or halfway...) When possible be specific @ -No Did you speak to anyone other than the patient for history (EMS, parent, family, police, friend...)? What history was obtained from this source @ -No Did you review nursing and triage notes (agree or disagree)? Why? @ -I reviewed and agree with nursing and triage notes Were old charts reviewed (outside hosp., previous admission, EMS record, old EKG, old radiological studies, urgent care reports/EKG's, halfway records)? Report findings @ -No old charts were reviewed Differential Diagnosis (chest pain, altered mental status, abdominal pain women, abdominal pain men, vaginal bleeding, weakness, fever, dyspnea, syncope, headache, dizziness, GI bleed, back pain, seizure, CVA, palpatations, mental health, musculoskeletal)? @ -not applicable EKG interpreted by me (3pts min.). @ -As above X-rays interpreted by me (1pt min.). @ -None done CT interpreted by me (1pt min.). @ -None done U/S interpreted by me (1pt. min.). @ -None done What testing was considered but not performed or refused? (CT, X-rays, U/S, lab s)? Why? @ -None What meds were considered but not given or refused? Why? @ -None Did you discuss the management of the patient with other professionals (professionals i.e. , DEANNA, SHIP ENGINEER, lab, RT, psych nurse, social service worker, tricot knitter, teacher, state patrol officer, protective services case worker)? Give summary @ -No Was smoking cessation discussed for >3mins.? @ -No Was critical care preformed (if so, how long)? @ -No Were there social determinants of health that impacted care today? How? (Homelessness, low income, unemployed, alcoholism, drug addiction, transportation, low edu. Level, literacy, decrease access to med. care, usp, rehab)? @ -No Was there de-escalation of care discussed even if they declined (Discuss DNR or withdrawal of care, Hospice)? DNR status @ -No What co-morbidities impacted this encounter? (DM, HTN, Smoking, COPD, CAD, Cancer, CVA, ARF, Chemo, Hep., AIDS, mental health diagnosis, sleep apnea, morbid obesity)? @ -None Was patient admitted / discharged? Hospital course, mention meds given and route, prescriptions, significant lab abnormalities, going to OR and other pertinent info. @ -Patient has a cath removed and felt much better. Urinalysis was done and showed no infection patient will follow-up with Dr. Melvin tomorrow Undiagnosed new problem with uncertain prognosis? @ -No Drug Therapy requiring intensive monitoring for toxicity (Heparin, Nitro, Insulin, Cardizem)? @ -No Were any procedures done? @ -No Diagnosis/symptom? @ -Urinary catheter problems Acute, or Chronic, or Acute on Chronic? @ -Acute Uncomplicated (without systemic symptoms) or Complicated (systemic symptoms)? @ -Uncomplicated Side effects of treatment? @ -No Exacerbation, Progression, or Severe Exacerbation? @ -No Poses a threat to life or bodily function? How? (Chest pain, [place], [place], pneumonia, PE, COPD, DKA, ARF, appy, cholecystitis, CVA, Diverticulitis, Homicidal, Suicidal, threat to staff... and all critical care pts) @ -No - Lab Data Lab Results 09/04/22 Range/Units 15:05 Urine Color Light Yellow Urine Appearance Clear (Clear) Urine pH 5.5 (5.0-8.0) Ur Specific [place] 1.014 (1.001-1.035) Urine Protein Negative (Negative) Urine Glucose (UA) Negative (Negative) Urine Ketones Negative (Negative) Urine Blood Small H (Negative) Urine Nitrite Negative (Negative) Urine Bilirubin Negative (Negative) Urine Urobilinogen <2.0 (<2.0) mg/dL Ur Leukocyte Esterase Moderate H (Negative) Urine RBC 15 H (0-5) /hpf Urine WBC 3 (0-5) /hpf Urine Mucus Rare H (None) /hpf Disposition Clinical Impression: Urinary catheter complication Disposition: HOME SELF-CARE Condition: Good Additional Instructions: Patient should follow-up with Dr. Melvin tomorrow Is patient prescribed a controlled substance at d/c from ED?: No Referrals: Sergio Johnson DO [Primary Care Provider] - 1-2 days Time of Disposition: 15:25
[2022-09-04 16:06] VITALS: BP 107/68; PULSE 70; RESP 18; TEMP 98.1
== END 2022-09-04 16:06 | disposition home or self-care (01) ==
LOC: EC 13:29
DX: T83.9XXA Unspecified complication of genitourinary prosthetic device, implant and graft, initial encounter (principal); Z88.8 Allergy status to other drugs, medicaments and biological substances
CPT/HCPCS: 81001; 99283

== ENCOUNTER 2022-10-16 13:13 | Observation (INO) | payer MEDICARE, OTHER ==
--- NOTE | 2022-10-16 13:35 | ED ---
Dizziness HPI - General Stated Complaint: near Syncope Time Seen by Provider: 10/16/22 13:13 Source: patient, EMS, RN notes reviewed Mode of arrival: EMS Limitations: no limitations - History of Present Illness Initial Comments: 76-year-old male with a history of cardiac disease with a stent who earlier today apparently had some retrosternal chest pressure that he states was mild unsure how long it lasted for about he was getting up for lunch from his chair or walking toward his kitchen when he felt lightheaded dizzy and almost passed out. He was helped down by his . No trauma. No shortness of breath no fevers chills or sweats no symptoms at this time upon arrival. He was brought in by EMS. MD Complaint: dizziness, lightheadedness, near syncope - Related Data Home Medications Medication Instructions Recorded Confirmed Memantine [Namenda] 5 mg PO BID 08/25/22 10/16/22 Tamsulosin [Flomax] 0.4 mg PO DAILY 08/25/22 10/16/22 Multivitamin [Multivitamins Adult 1 tab PO DAILY 10/16/22 10/16/22 Gummies] Previous Rx's Medication Instructions Recorded Aspirin 81 mg PO DAILY tab 08/28/22 Atorvastatin [Lipitor] 80 mg PO DAILY #30 tab 08/28/22 Clopidogrel [Plavix] 75 mg PO DAILY #30 tab 08/28/22 Isosorbide Mononitrate ER [Imdur] 30 mg PO DAILY #30 tab 08/28/22 Losartan [Cozaar] 12.5 mg PO DAILY #30 tab 08/28/22 Metoprolol Tartrate [Lopressor] 25 mg PO BID #60 tab 08/28/22 Allergies Allergy/AdvReac Type Severity Reaction Status Date / Time codeine Allergy Unknown Verified 10/16/22 14:21 Review of Systems ROS Statement: Those systems with pertinent positive or pertinent negative responses have been documented in the HPI. ROS Other: All systems not noted in ROS Statement are negative. Past Medical History Past Medical History: Coronary Artery Disease (CAD), Dementia, Memory Impairment, Prostate Disorder Additional Past Medical History / Comment(s): UTI in the past History of Any Multi-Drug Resistant Organisms: None Reported Past Surgical History: Heart Catheterization With Stent Past Anesthesia/Blood Transfusion Reactions: No Reported Reaction Past Psychological History: No Psychological Hx Reported Smoking Status: Never smoker Past Alcohol Use History: None Reported Past Drug Use History: None Reported - Past Family History Mother Family Medical History: Unable to Obtain Brother(s) Family Medical History: Deep Vein Thrombosis (DVT), Myocardial Infarction (ND), Renal Disease General Exam - General Exam Comments Initial Comments: This is a well-developed well-nourished awake alert oriented 4 male Limitations: no limitations General appearance: alert, in no apparent distress Head exam: Present: atraumatic, normocephalic, normal inspection Eye exam: Present: normal appearance, PERRL, EOMI. Absent: scleral icterus, conjunctival injection, periorbital swelling ENT exam: Present: normal exam, mucous membranes moist Neck exam: Present: normal inspection, full ROM, other (No stridor JVD or bruits). Absent: tenderness, meningismus, lymphadenopathy Respiratory exam: Present: normal lung sounds bilaterally. Absent: respiratory distress, wheezes, rales, rhonchi, stridor Cardiovascular Exam: Present: regular rate, normal rhythm, normal heart sounds. Absent: systolic murmur, diastolic murmur, rubs, gallop, clicks GI/Abdominal exam: Present: soft, normal bowel sounds. Absent: distended, tenderness, guarding, rebound, rigid Extremities exam: Present: normal inspection, full ROM, normal capillary refill. Absent: tenderness, pedal edema, joint swelling, calf tenderness Back exam: Present: normal inspection Neurological exam: Present: alert, oriented X3, CN II-XII intact Psychiatric exam: Present: normal affect, normal mood Skin exam: Present: warm, dry, intact, normal color. Absent: rash Course Vital Signs 10/16/22 13:22 Temperature 97.8 F Pulse Rate 61 Respiratory 18 Rate Blood Pressure 107/63 O2 Sat by Pulse 96 Oximetry - Reevaluation(s) Reevaluation #1: 10/16/22 13:42 EKG today compared with one dated 08/27/22 and a tender was evidence of ST depressions in leads 1 leads 2 as well as leads V2 through V6 which are not present today.. Additional information patient did not have any palpitations during this episode. EKG Findings - EKG Results: EKG: interpreted by ERMD (EKG interpreted by me normal sinus rhythm a 63. Interval 163 QRS duration 86 QT since QTC 391/399 nonspecific T-wave configuration no acute ST-T wave changes seen) Medical Decision Making - Medical Decision Making I did discuss findings with the patient family and [facility] as I believe he is demonstrated evidence of ACS he did have a near syncopal episode. Also noted on my repeat evaluation he was somewhat hypotensive this was not there earlier. Patient does state he drinks adequate someone water he will get a fluid bolus. I did discuss the case with Dr. Strange who did come see the patient emergency department.Was pt. sent in by a medical professional or institution (, [facility], [facility], urgent care, hospital, or intermediate...) When possible be specific @ -Medics Did you speak to anyone other than the patient for history (EMS, parent, family, police, friend...)? What history was obtained from this source @ -Medics and family Did you review nursing and triage notes (agree or disagree)? Why? @ -I reviewed and agree with nursing and triage notes Were old charts reviewed (outside hosp., previous admission, EMS record, old EKG, old radiological studies, urgent care reports/EKG's, intermediate records)? Report findings @ - old charts were reviewed Differential Diagnosis (chest pain, altered mental status, abdominal pain women, abdominal pain men, vaginal bleeding, weakness, fever, dyspnea, syncope, headache, dizziness, GI bleed, back pain, seizure, CVA, palpatations, mental health, musculoskeletal)? @ -not applicable EKG interpreted by me (3pts min.). @ -As above normal sinus rhythm no evidence of acute ST-T wave changes. X-rays interpreted by me (1pt min.). @ -Turbid by me no acute processes seen. CT interpreted by me (1pt min.). @ -None done U/S interpreted by me (1pt. min.). @ -None done What testing was considered but not performed or refused? (CT, X-rays, U/S, labs)? Why? @ -None What meds were considered but not given or refused? Why? @ -None Did you discuss the management of the patient with other professionals (professionals i.e. , [facility], [facility] [employer] [facility], lab, RT, psych nurse, social media strategist, food service order clerk, teacher, commercial escrow officer, case maker)? Give summary @ -Dr. Baer Was smoking cessation discussed for >3mins.? @ -No Was critical care preformed (if so, how long)? @ -21 minutes Were there social determinants of health that impacted care today? How? (Homelessness, low income, unemployed, alcoholism, drug addiction, trans portation, low edu. Level, literacy, decrease access to med. care, fpc, rehab)? @ -No Was there de-escalation of care discussed even if they declined (Discuss DNR or withdrawal of care, Hospice)? DNR status @ -No What co-morbidities impacted this encounter? (DM, HTN, Smoking, COPD, CAD, Cancer, CVA, ARF, Chemo, Hep., AIDS, mental health diagnosis, sleep apnea, morbid obesity)? @ -Coronary artery disease Was patient admitted / discharged? Hospital course, mention meds given and rou te, prescriptions, significant lab abnormalities, going to OR and other pertinent info. @ -The patient was admitted with inpatient evaluation and cardiology will be consulted. At this time the patient is asymptomatic Undiagnosed new problem with uncertain prognosis? @ -No Drug Therapy requiring intensive monitoring for toxicity (Heparin, Nitro, Insulin, Cardizem)? @ -No Were any procedures done? @ -No Diagnosis/symptom? @ -Or syncope, unstable angina Acute, or Chronic, or Acute on Chronic? @ -Acute Uncomplicated (without systemic symptoms) or Complicated (systemic symptoms)? @ -default Side effects of treatment? @ -No Exacerbation, Progression, or Severe Exacerbation? @ -No Poses a threat to life or bodily function? How? (Chest pain, [place], [place], pneumonia, PE, COPD, DKA, ARF, appy, cholecystitis, CVA, Diverticulitis, Homicidal, Suicidal, threat to staff... and all critical care pts) @ -Chest pain, near syncope - Lab Data Result diagrams: 10/16/22 13:32 10/16/22 13:32 Lab Results 10/16/22 10/16/22 10/16/22 Range/Units 13:32 13:32 13:32 WBC 4.4 (3.8-10.6) k/uL RBC 4.03 L (4.30-5.90) m/uL Hgb 13.0 (13.0-17.5) gm/dL Hct 37.7 L (39.0-53.0) % MCV 93.6 (80.0-100.0) fL MCH 32.3 (25.0-35.0) pg MCHC 34.5 (31.0-37.0) g/dL RDW 12.8 (11.5-15.5) % Plt Count 135 L (150-450) k/uL MPV 9.2 Neutrophils % 67 % Lymphocytes % 21 % Monocytes % 7 % Eosinophils % 3 % Basophils % 1 % Neutrophils # 2.9 (1.3-7.7) k/uL Lymphocytes # 0.9 L (1.0-4.8) k/uL Monocytes # 0.3 (0-1.0) k/uL Eosinophils # 0.1 (0-0.7) k/uL Basophils # 0.0 (0-0.2) k/uL PT 12.5 H (9.0-12.0) sec INR 1.2 H (<1.2) APTT 24.9 (22.0-30.0) sec D-Dimer 0.71 H (<0.60) mg/L FEU Sodium 136 L (137-145) mmol/L Potassium 4.4 (3.5-5.1) mmol/L Chloride 108 H (98-107) mmol/L Carbon Dioxide 23 (22-30) mmol/L Anion Gap 5 mmol/L BUN 19 (9-20) mg/dL Creatinine 1.54 H (0.66-1.25) mg/dL Est GFR (CKD-EPI)AfAm 49 (>60 ml/min/1.73 sqM) Est GFR (CKD-EPI)NonAf 42 (>60 ml/min/1.73 sqM) Glucose 106 H (74-99) mg/dL Calcium 8.4 (8.4-10.2) mg/dL Magnesium 2.0 (1.6-2.3) mg/dL Total Bilirubin 1.7 H (0.2-1.3) mg/dL AST 22 (17-59) U/L ALT 20 (4-49) U/L Alkaline Phosphatase 93 (38-126) U/L Troponin I (0.000-0.034) ng/mL NT-Pro-B Natriuret Pep pg/mL Total Protein 6.7 (6.3-8.2) g/dL Albumin 3.5 (3.5-5.0) g/dL Lipase 331 H (23-300) U/L 10/16/22 10/16/22 Range/Units 13:32 13:32 WBC (3.8-10.6) k/uL RBC (4.30-5.90) m/uL Hgb (13.0-17.5) gm/dL Hct (39.0-53.0) % MCV (80.0-100.0) fL MCH (25.0-35.0) pg MCHC (31.0-37.0) g/dL RDW (11.5-15.5) % Plt Count (150-450) k/uL MPV Neutrophils % % Lymphocytes % % Monocytes % % Eosinophils % % Basophils % % Neutrophils # (1.3-7.7) k/uL Lymphocytes # (1.0-4.8) k/uL Monocytes # (0-1.0) k/uL Eosinophils # (0-0.7) k/uL Basophils # (0-0.2) k/uL PT (9.0-12.0) sec INR (<1.2) APTT (22.0-30.0) sec D-Dimer (<0.60) mg/L FEU Sodium (137-145) mmol/L Potassium (3.5-5.1) mmol/L Chloride (98-107) mmol/L Carbon Dioxide (22-30) mmol/L Anion Gap mmol/L BUN (9-20) mg/dL Creatinine (0.66-1.25) mg/dL Est GFR (CKD-EPI)AfAm (>60 ml/min/1.73 sqM) Est GFR (CKD-EPI)NonAf (>60 ml/min/1.73 sqM) Glucose (74-99) mg/dL Calcium (8.4-10.2) mg/dL Magnesium (1.6-2.3) mg/dL Total Bilirubin (0.2-1.3) mg/dL AST (17-59) U/L ALT (4-49) U/L Alkaline Phosphatase (38-126) U/L Troponin I <0.012 (0.000-0.034) ng/mL NT-Pro-B Natriuret Pep 396 pg/mL Total Protein (6.3-8.2) g/dL Albumin (3.5-5.0) g/dL Lipase (23-300) U/L - Radiology Data Interpreted by me: Imaging interpreted by me no evidence of acute processes. Critical Care Time Critical Care Time: Yes Total Critical Care Time: 31 Disposition Clinical Impression: Chest pain, Near syncope, Hypotensive episode, Elevated d-dimer, Unstable angina Disposition: ADMITTED IP TO THIS [facility] Condition: Stable Referrals: Sergio Johnson DO [Primary Care Provider] - 1-2 days Decision Date: 10/16/22 Decision Time: 16:11
[2022-10-16 13:44] LABS: Basophils % (A) 1 %; Eosinophils # (A) 0.1 k/uL (0-0.7); Eosinophils % (A) 3 %; HCT 37.7 % (39.0-53.0); Lymphocytes # (A) 0.9 k/uL (1.0-4.8); Lymphocytes % (A) 21 %; MCH 32.3 pg (25.0-35.0); MCHC 34.5 g/dL (31.0-37.0); MCV 93.6 fL (80.0-100.0); Mean Platelet Volume 9.2; Monocytes # (A) 0.3 k/uL (0-1.0); Monocytes % (A) 7 %; Neutrophils # (A) 2.9 k/uL (1.3-7.7); Neutrophils % (A) 67 %; Platelet Count 135 k/uL (150-450); RBC 4.03 m/uL (4.30-5.90); RDW 12.8 % (11.5-15.5); WBC 4.4 k/uL (3.8-10.6)
[2022-10-16 13:58] LABS: INR 1.2 (<1.2); Partial Thromboplastin Time 24.9 sec (22.0-30.0); Prothrombin Time 12.5 sec (9.0-12.0)
[2022-10-16 14:04] LABS: ALT 20 U/L (4-49); AST 22 U/L (17-59); African American GFR (CKD) 49 (>60 ml/min/1.73 sqM); Albumin 3.5 g/dL (3.5-5.0); Alkaline Phosphatase 93 U/L (38-126); Anion Gap 5 mmol/L; Blood Urea Nitrogen 19 mg/dL (9-20); Calcium 8.4 mg/dL (8.4-10.2); Carbon Dioxide 23 mmol/L (22-30); Chloride 108 mmol/L (98-107); Glucose 106 mg/dL (74-99); Lipase 331 U/L (23-300); Non-African American GFR(CKD) 42 (>60 ml/min/1.73 sqM); Potassium 4.4 mmol/L (3.5-5.1); Sodium 136 mmol/L (137-145); Total Bilirubin 1.7 mg/dL (0.2-1.3); Total Protein 6.7 g/dL (6.3-8.2)
--- NOTE | 2022-10-16 14:19 | XR ---
EXAMINATION TYPE: XR chest 2V DATE OF EXAM: 10/16/2022 COMPARISON: 08/25/2022 HISTORY: 77-year-old male with chest pain TECHNIQUE: AP and lateral views FINDINGS: Chronically fractured, nonunited comminuted fracture distal left clavicle. Severe degenerative change left shoulder. Large 4 cm loose body inferior aspect of the left shoulder joint. Heart normal size. Mild hyperinflation. Coronary stent. No consolidation or pleural effusion. Some strandy basilar atele ctasis. IMPRESSION: 1. COPD with some strandy basilar atelectasis. No definite acute process. 2. Chronic, nonunited comminuted fracture distal left clavicle.
[2022-10-16] MEDS ORDERED: SODIUM CHLORIDE 0.9% 500 ML 500 ML IV STA (15:52)
[2022-10-16] MEDS ORDERED: NITROGLYCERIN SL TABS 0.4 MG TAB SUBLINGUAL PRN (16:11)
--- NOTE | 2022-10-16 16:31 | P.HPIM ---
History of Present Illness H&P Date: 10/16/22 Patient is a 77-year-old male with history of coronary artery disease status post stenting, dementia, and enlarged prostate who presented to the ER via EMS with a syncopal event. In the ER he underwent an extensive evaluation. His vital signs within normal limits on arrival. Laboratory analysis was remarkable for platelets of 135 (baseline 137-146), d-dimer 0.71 (normal for age adjustment which would predict 0.79 being the upper limit of normal), sodium 136, creatinine 1.54 (baseline of 1.28-1.44), bilirubin of 1.7, and lipase of 331. Patient been admitted to chest pain before and after his syncopal event and therefore arrangements were made for admission for chest pain observation. Of note patient was recently hospitalized here from 08/25 through 08/28 with urinary tract infection and non-ST segment elevated myocardial infarction requiring 2 stents to the LAD and discovery of ischemic cardiomyopathy with ejection fraction 45%. Patient seen and examined at bedside. He reports that today he was walking back from the kitchen and began feeling woozy, off balance, and like he was going to pass out. He reports that this came out of nowhere with no precipitating fa ctors. He has been in his typical state of health. His does report that he was complaining of some chest pressure this morning when he was out walking but it seemed to resolve. Currently denies any chest pain/pressure, shortness of breath, nausea, numbness tingling, lightheaded or dizziness. He has an appointment coming up for a stress test after his heart attack next month. He has been following with Dr. Padron in the office. No other recent coughs, colds, fevers, flu. Vital signs reviewed General: nontoxic, no distress, appears at stated age Derm: warm, dry Eyes: EOMI, no lid lag, anicteric sclera, pupils equal round reactive to light ENT: Nose and ears atraumatic, no thrush, no pharyngeal erythema Cardiovascular: S1S2 reg, no murmur, positive posterior tibial pulse bilateral, no edema, capillary refill less than 2 seconds Lungs: clear to auscultation bilateral, no rhonchi, no rales, no wheeze, no accessory muscle use Abdominal: soft, nontender to palpation, no guarding, no appreciable organomegaly, normal bowel sounds Ext: no gross muscle atrophy, muscle strength 5 out of 5 in b/l upper extremities, no contractures Neuro: CN II-XII grossly intact, light touch intact all 4 extremities, finger to nose within normal limits, Psych: Alert, oriented, appropriate affect Assessment/Plan: Pre-syncope Chest pain Coronary artery disease with non-STEMI and stent 2 to the LAD in August 2022 Ischemic cardiomyopathy with ejection fraction 45% - admit to observation - Tele, check orthostatic vital signs - consults cardio - trend troponin -Continue with home Plavix 75 mg daily, aspirin 81 mg daily, Lipitor 80 mg daily, Lopressor 25 mg twice daily, and Cozaar 12.5 mg daily Chronic kidney disease stage III, creatinine near baseline -Creatinine at or near baseline -Repeat BMP in a.m. Chronic: Dementia Imaging: As per HPI, additionally EKG demonstrates normal sinus rhythm with normal axis, normal intervals, and nonspecific ST-T wave changes Data Review: As per HPI The patient is admitted with an anticipated greater than 2 midnight stay for evaluation of chest pain. Surrogate decision-maker: CODE STATUS: Full DVT prophylaxis: SCDs Discussed with: Patient, family Anticipated discharge date: in 24-[address]: home This dictation was prepared using [employer] voice recognition software. Though every attempt is made to correct errors during dictation some may still exist. Past Medical History Past Medical History: Coronary Artery Disease (CAD), Dementia, Memory Impairment, Myocardial Infarction ([place]), Prostate Disorder Additional Past Medical History / Comment(s): UTI in the past, cardiomyopathy History of Any Multi-Drug Resistant Organisms: None Reported Past Surgical History: Heart Catheterization With Stent Past Anesthesia/Blood Transfusion Reactions: No Reported Reaction Past Psychological History: No Psychological Hx Reported Smoking Status: Never smoker Past Alcohol Use History: None Reported Past Drug Use History: None Reported - Past Family History Mother Family Medical History: Unable to Obtain Brother(s) Family Medical History: Deep Vein Thrombosis (DVT), Myocardial Infarction ([place]), Renal Disease Medications and Allergies Home Medications Medication Instructions Recorded Confirmed Type Memantine [Namenda] 5 mg PO BID 08/25/22 10/16/22 History Tamsulosin [Flomax] 0.4 mg PO DAILY 08/25/22 10/16/22 History Aspirin 81 mg PO DAILY tab 08/28/22 10/16/22 Rx Atorvastatin [Lipitor] 80 mg PO DAILY #30 tab 08/28/22 10/16/22 Rx Clopidogrel [Plavix] 75 mg PO DAILY #30 tab 08/28/22 10/16/22 Rx Isosorbide Mononitrate ER [Imdur] 30 mg PO DAILY #30 tab 08/28/22 10/16/22 Rx Losartan [Cozaar] 12.5 mg PO DAILY #30 tab 08/28/22 10/16/22 Rx Metoprolol Tartrate [Lopressor] 25 mg PO BID #60 tab 08/28/22 10/16/22 Rx Multivitamin [Multivitamins Adult 1 tab PO DAILY 10/16/22 10/16/22 History Gummies] Allergies Allergy/AdvReac Type Severity Reaction Status Date / Time codeine Allergy Unknown Verified 10/16/22 14:21 Physical Exam Osteopathic Statement: *. No significant issues noted on an osteopathic structural exam other than those noted in the History and Physical/Consult. Vitals: Vital Signs Temp Pulse Resp BP Pulse Ox 10/16/22 13:22 97.8 F 61 18 107/63 96 Intake and Output 10/16/22 10/16/22 10/16/22 06:59 14:59 22:59 Other: Weight 77.111 kg Results CBC & Chem 7: 10/16/22 13:32 10/16/22 13:32 Labs: Abnormal Lab Results - Last 24 Hours (Table) 10/16/22 10/16/22 10/16/22 Range/Units 13:32 13:32 13:32 RBC 4.03 L (4.30-5.90) m/uL Hct 37.7 L (39.0-53.0) % Plt Count 135 L (150-450) k/uL Lymphocytes # 0.9 L (1.0-4.8) k/uL PT 12.5 H (9.0-12.0) sec INR 1.2 H (<1.2) D-Dimer 0.71 H (<0.60) mg/L FEU Sodium 136 L (137-145) mmol/L Chloride 108 H (98-107) mmol/L Creatinine 1.54 H (0.66-1.25) mg/dL Glucose 106 H (74-99) mg/dL Total Bilirubin 1.7 H (0.2-1.3) mg/dL Lipase 331 H (23-300) U/L
[2022-10-16] MEDS ORDERED: NALOXONE 0.4 MG/ML 1 ML VIAL IVP PRN (16:47)
[2022-10-16] MEDS: SODIUM CHLORIDE 0.9% 1,000 ML IV SCH (16:56)
[2022-10-16 20:30] LABS: Appearance,Urine Clear (Clear); Bilirubin,Urine Negative (Negative); Blood,Urine Negative (Negative); Color,Urine Yellow; Glucose,Urine (UA) Negative (Negative); Ketones,Urine Negative (Negative); Leukocyte Esterase,Urine Negative (Negative); Nitrite,Urine Negative (Negative); Protein,Urine Negative (Negative); Specific Gravity,Urine 1.014 (1.001-1.035); Urobilinogen,Urine <2.0 mg/dL (<2.0)
[2022-10-16] MEDS: METOPROLOL TARTRATE 25 MG TAB PO SCH (21:19)
[2022-10-16] MEDS: MEMANTINE 5 MG TAB PO SCH (21:19)
[2022-10-17] MEDS: SODIUM CHLORIDE 0.9% 1,000 ML IV SCH (06:00)
[2022-10-17 07:35] LABS: HCT 38.2 % (39.0-53.0); HGB 12.8 gm/dL (13.0-17.5); MCH 31.9 pg (25.0-35.0); MCHC 33.5 g/dL (31.0-37.0); MCV 95.3 fL (80.0-100.0); Mean Platelet Volume 9.4; Platelet Count 127 k/uL (150-450); RBC 4.01 m/uL (4.30-5.90); RDW 12.8 % (11.5-15.5); WBC 4.4 k/uL (3.8-10.6)
[2022-10-17 07:59] LABS: African American GFR (CKD) 51 (>60 ml/min/1.73 sqM); Anion Gap 4 mmol/L; Blood Urea Nitrogen 16 mg/dL (9-20); Carbon Dioxide 24 mmol/L (22-30); Chloride 111 mmol/L (98-107); Glucose 83 mg/dL (74-99); Non-African American GFR(CKD) 45 (>60 ml/min/1.73 sqM); Sodium 139 mmol/L (137-145)
[2022-10-17] MEDS ORDERED: MULTIVITAMINS, THERA 1 EACH TAB PO SCH (09:00)
[2022-10-17] MEDS ORDERED: LOSARTAN 25 MG TAB PO SCH (09:00)
[2022-10-17] MEDS ORDERED: ATORVASTATIN 80 MG TAB PO SCH (09:00)
[2022-10-17] MEDS ORDERED: TAMSULOSIN 0.4 MG CAP.ER.24H PO SCH (09:00)
[2022-10-17] MEDS ORDERED: ISOSORBIDE MONONITRATE ER 30 MG TAB.ER.24H PO SCH (09:00)
[2022-10-17] MEDS ORDERED: ASPIRIN 81 MG PO SCH (09:00)
[2022-10-17] MEDS ORDERED: ASPIRIN 325 MG TAB PO SCH (09:00)
[2022-10-17] MEDS ORDERED: CLOPIDOGREL 75 MG TAB PO SCH (09:00)
[2022-10-17 09:01] VITALS: BP 157/91; PULSE 63; RESP 17; TEMP 98
[2022-10-17] MEDS: MEMANTINE 5 MG TAB PO SCH (09:20)
[2022-10-17] MEDS: METOPROLOL TARTRATE 25 MG TAB PO SCH (09:20)
--- NOTE | 2022-10-17 09:49 | P.CRDCN ---
History of Present Illness History of present illness: HISTORY OF PRESENT ILLNESS: This is a 77-year-old male with a past medical history significant for frequent UTIs, BPH, dementia, ischemic cardiomyopathy with an ejection fraction of 45%, and coronary artery disease with PCI of the LAD in July 2022. Patient follows in the office with Dr. Padron. We have been asked to see the patient in consultation for chest pain and presyncope. Patient examined at the bedside. Patients is present. Patient states that yesterday morning he reported having a brief episode of chest pain that he describes as a pressure type sensation. He denied any radiation of the pain or shortness of breath. He states this only lasted for a few minutes and then went away. His states that he was getting ready to go out to lunch yesterday around noon when he got up from one chair and walked into another room. states that he started to fall forward and she knew he was going to fall. She grabbed a chair and sat the patient down in the chair and called EMS. The patient denied having any chest pain or pressure. He did not have any shortness of breath. He denied feeling dizzy or lightheaded. He reports feeling wobbly and knew he was going to fall. This morning, the patient denies having any chest pain or pressure. He denies shortness of breath. Vital signs are stable. Patient is hoping to be discharged home today. Orthostatic blood pressures were obtained and were negative. The patient's states that the patient has not been drinking enough fluid at home and she has been trying to encourage increased oral intake. The patient's creatinine was noted to be a little bit above baseline at 1.54. * EKG reveals sinus mechanism with nonspecific ST-T wave changes * Chest xray COPD with some strandy basilar atelectasis. No definite acute process. Chronic nonunited comminuted fractured distal left clavicle * Laboratory data: WBC 4.4. Hemoglobin 12.8. Platelet count 127. Sodium 139. Potassium 4.0. BUN 16. Creatinine 1.48. Troponin negative 3. ProBNP 396. * Current home cardiac medications include aspirin 81 mg daily, Lipitor 80 mg daily, Plavix 75 mg daily, Imdur 30 mg daily, losartan 12.5 mg daily, metoprolol tartrate 25 mg twice a day * Most recent echocardiogram obtained in July 2022 revealed ejection fraction 45% with hypokinesis at the apex, trace to mild MR, mild TR * Cardiac catheterization history: July 2022 revealing mid luminary irregularities of the RCA and circumflex and diffuse mid to distal LAD 50-60% stenosis and more focal 99% mid LAD stenosis. Patient underwent stenting of the mid to distal LAD. REVIEW OF SYSTEMS: At the time of my exam: CONSTITUTIONAL: Denies fever or chills. HEENT: Denies blurred vision, vision changes, or eye pain. Denies hemoptysis CARDIOVASCULAR: Denies chest pain. Denies orthopnea. Denies PND. Denies palpitations RESPIRATORY: Denies shortness of breath. GASTROINTESTINAL: Denies abdominal pain. Denies nausea or vomiting. HEMATOLOGIC: Denies bleeding disorders. GENITOURINARY: Denies any blood in urine. SKIN: Denies pruitis. Denies rash. PHYSICAL EXAM: VITAL SIGNS: Reviewed. GENERAL: Well-developed in no acute distress. HEENT: Head is normocephalic. Pupils are equal, round. Sclerae anicteric. Mucous membranes of the mouth are moist. Neck supple. No JVD or thyromegaly LUNGS: Respirations even and unlabored. Lungs essentially clear to auscultation bilaterally. HEART: Regular rate and rhythm. S1 and S2 heard. ABDOMEN: Soft. Nondistended. Nontender. EXTREMITIES: Normal range of motion. No clubbing or cyanosis. Peripheral pulses intact. No lower extremity edema NEUROLOGIC: Awake and alert. Oriented x 3. ASSESSMENT: Presyncope Chest pain, troponins negative 3, acute coronary syndrome ruled out Coronary artery disease with recent stenting to the mid to distal LAD, July 2022 Ischemic cardiomyopathy, ejection fraction 45% Hypertension Hyperlipidemia History of frequent UTIs BPH Dementia PLAN: An acute coronary event has been ruled out Orthostatic blood pressures obtained and were negative Continue home cardiac medications Repeat echocardiogram to assess LV function Patient may be discharged home today from a cardiac standpoint If patient continues to have episodes of presyncope patient may require event monitoring on an outpatient basis Patient is scheduled for low level stress testing in the office on 10/26/2022 Patient to follow-up post discharge with Dr. Padron Nurse practitioner note has been reviewed by physician. Signing provider agrees with the documented findings, assessment, and plan of care. Past Medical History Past Medical History: Coronary Artery Disease (CAD), Dementia, Memory Impairment, Myocardial Infarction ([place]), Prostate Disorder Additional Past Medical History / Comment(s): UTI in the past, cardiomyopathy Last Myocardial Infarction Date:: august 25 2022 History of Any Multi-Drug Resistant Organisms: None Reported Past Surgical History: Heart Catheterization With Stent Past Anesthesia/Blood Transfusion Reactions: No Reported Reaction Date of Last Stent Placement:: 08/26/2022 Past Psychological History: No Psychological Hx Reported Smoking Status: Never smoker Past Alcohol Use History: None Reported Past Drug Use History: None Reported - Past Family History Mother Family Medical History: Unable to Obtain Brother(s) Family Medical History: Deep Vein Thrombosis (DVT), Myocardial Infarction ([place]), Renal Disease Medications and Allergies Home Medications Medication Instructions Recorded Confirmed Type Memantine [Namenda] 5 mg PO BID 08/25/22 10/16/22 History Tamsulosin [Flomax] 0.4 mg PO DAILY 08/25/22 10/16/22 History Aspirin 81 mg PO DAILY tab 08/28/22 10/16/22 Rx Atorvastatin [Lipitor] 80 mg PO DAILY #30 tab 08/28/22 10/16/22 Rx Clopidogrel [Plavix] 75 mg PO DAILY #30 tab 08/28/22 10/16/22 Rx Isosorbide Mononitrate ER [Imdur] 30 mg PO DAILY #30 tab 08/28/22 10/16/22 Rx Losartan [Cozaar] 12.5 mg PO DAILY #30 tab 08/28/22 10/16/22 Rx Metoprolol Tartrate [Lopressor] 25 mg PO BID #60 tab 08/28/22 10/16/22 Rx Multivitamin [Multivitamins Adult 1 tab PO DAILY 10/16/22 10/16/22 History Gummies] Allergies Allergy/AdvReac Type Severity Reaction Status Date / Time codeine Allergy Unknown Verified 10/16/22 14:21 Physical Exam Vitals: Vital Signs Temp Pulse Pulse Resp BP BP BP 10/17/22 02:00 97.9 F 52 L 15 10/16/22 20:30 97.5 F L 64 18 10/16/22 19:38 69 18 109/77 10/16/22 16:48 123/74 107/74 10/16/22 13:22 97.8 F 61 18 107/63 BP BP Pulse Ox 10/17/22 02:00 134/78 98 10/16/22 20:30 151/88 99 10/16/22 19:38 94 L 10/16/22 16:48 113/71 10/16/22 13:22 96 Intake and Output 10/16/22 10/17/22 10/17/22 22:59 06:59 14:59 Other: # Voids 1 3 Weight 77.111 kg Results 10/17/22 05:27 10/17/22 05:27 Cardiac Enzymes 10/16/22 10/16/22 10/16/22 Range/Units 13:32 13:32 16:30 AST 22 (17-59) U/L Troponin I <0.012 <0.012 (0.000-0.034) ng/mL 10/16/22 Range/Units 20:02 AST (17-59) U/L Troponin I <0.012 (0.000-0.034) ng/mL Coagulation 10/16/22 Range/Units 13:32 PT 12.5 H (9.0-12.0) sec APTT 24.9 (22.0-30.0) sec CBC 10/16/22 10/17/22 Range/Units 13:32 05:27 WBC 4.4 4.4 (3.8-10.6) k/uL RBC 4.03 L 4.01 L (4.30-5.90) m/uL Hgb 13.0 12.8 L (13.0-17.5) gm/dL Hct 37.7 L 38.2 L (39.0-53.0) % Plt Count 135 L 127 L (150-450) k/uL Comprehensive Metabolic Panel 10/16/22 Range/Units 13:32 Sodium 136 L (137-145) mmol/L Potassium 4.4 (3.5-5.1) mmol/L Chloride 108 H (98-107) mmol/L Carbon Dioxide 23 (22-30) mmol/L BUN 19 (9-20) mg/dL Creatinine 1.54 H (0.66-1.25) mg/dL Glucose 106 H (74-99) mg/dL Calcium 8.4 (8.4-10.2) mg/dL AST 22 (17-59) U/L ALT 20 (4-49) U/L Alkaline Phosphatase 93 (38-126) U/L Total Protein 6.7 (6.3-8.2) g/dL Albumin 3.5 (3.5-5.0) g/dL Current Medications Generic Name Dose Route Start Last Admin Trade Name Inocencioq PRN Reason Stop Dose Admin Aspirin 81 mg 10/17/22 09:00 Aspirin 81 Mg PO DAILY [facility] Atorvastatin Calcium 80 mg 10/17/22 09:00 Atorvastatin 80 Mg Tab PO DAILY [facility] Clopidogrel Bisulfate 75 mg 10/17/22 09:00 Clopidogrel 75 Mg Tab PO DAILY [facility] Sodium Chloride 1,000 mls @ 100 mls/hr 10/16/22 16:15 10/17/22 06:00 Saline 0.9% IV 100 mls/hr .Q10H [facility] Administration Isosorbide Mononitrate 30 mg 10/17/22 09:00 Isosorbide Mononitrate Er 30 Mg Tab.Er.24h PO DAILY [facility] Losartan Potassium 12.5 mg 10/17/22 09:00 Losartan 25 Mg Tab PO DAILY [facility] Memantine 5 mg 10/16/22 21:00 10/16/22 21:19 Memantine 5 Mg Tab PO 5 mg BID [facility] Administration Metoprolol Tartrate 25 mg 10/16/22 21:00 10/16/22 21:19 Metoprolol Tartrate 25 Mg Tab PO 25 mg BID [facility] Administration Multivitamins 1 each 10/17/22 09:00 Multivitamins, Thera 1 Each Tab PO DAILY [facility] Naloxone HCl 0.2 mg 10/16/22 16:47 Naloxone 0.4 Mg/Ml 1 Ml Vial IVP Q2M PRN Opioid Reversal Nitroglycerin 0.4 mg 10/16/22 16:11 Nitroglycerin Sl Tabs 0.4 Mg Tab SUBLINGUAL Q5M PRN Chest Pain Tamsulosin HCl 0.4 mg 10/17/22 09:00 Tamsulosin 0.4 Mg Cap.Er.24h PO DAILY [facility] Intake and Output 10/16/22 10/17/22 10/17/22 22:59 06:59 14:59 Other: # Voids 1 3 Weight 77.111 kg 10/17/22 05:27 10/16/22 13:32
--- NOTE | 2022-10-17 10:33 | CA ---
Transthoracic Echo Report Name: Wiliam Collins Age: 77 Gender: M : 1945 Exam Date: 10/17/2022 09:39 Exam Location: [facility] Ht (in): 72 Wt (lb): 170 Ordering Physician: Mirna Nixon Attending/Referring Phys: [id number], Tiffani Protection Officer Quynh Kim [facility] Procedure CPT: Indications: LV function Cardiac Hx: Technical Quality: Fair Contrast 1: Total Dose (mL): Contrast 2: Total Dose (mL): MEASUREMENTS (Male / Female) Normal Values 2D ECHO LV Diastolic Diameter PLAX 3.9 cm 4.2 - 5.9 / 3.9 - 5.3 cm LV Systolic Diameter PLAX 2.4 cm IVS Diastolic Thickness 1.1 cm 0.6 - 1.0 / 0.6 - 0.9 cm LVPW Diastolic Thickness 1.0 cm 0.6 - 1.0 / 0.6 - 0.9 cm LV Relative Wall Thickness 0.5 RV Internal Dim ED PLAX 3.9 cm DOPPLER Mitral E Point Velocity 53.6 cm/s Mitral A Point Velocity 56.6 cm/s Mitral E to A Ratio 0.9 MV Deceleration Time 228.6 ms LV E' Lateral Velocity 10.5 cm/s Mitral E to LV E' Lateral Ratio 5.1 LV E' Septal Velocity 9.1 cm/s Mitral E to LV E' Septal Ratio 5.9 TR Peak Velocity 185.3 cm/s TR Peak Gradient 13.7 mmHg Right Atrial Pressure 8.0 mmHg Pulmonary Artery Systolic Pressu 21.7 mmHg Right Ventricular Systolic Press 21.7 mmHg FINDINGS Left Ventricle Normal Left ventricular size, wall thickness, systolic function with no obvious regional wall motion abnormalities. Left ventricular ejection fraction is estimated at 55%. Right Ventricle Mild right ventricular dilatation. Right Atrium Left Atrium Mitral Valve Aortic Valve Tricuspid Valve Trace tricuspid regurgitation. Pulmonic Valve Pericardium Aorta CONCLUSIONS Limited 2-D echo Left ventricular ejection fraction 55% Trace tricuspid regurgitation Previewed by: Dr. Leonardo Padron DO (Electronically Signed) Final Date: 17 October 2022 10:31
--- NOTE | 2022-10-17 13:34 | P.DS ---
Providers Date of admission: 10/16/22 16:13 Expected date of discharge: 10/17/22 Attending physician: Leelee Peralta DO Consults: 10/16/22 16:11 Consult Physician Urgent Consulting Provider: Chris Cook Consult Reason/Comments: Chest pain, near syncope Do you want consulting provider notified?: Yes Primary care physician: Sergio Johnson [facility] Course: Discharge Diagnosis: Pre-syncope Chest pain, acute coronary syndrome ruled out Coronary artery disease with non-STEMI and stent 2 to the LAD in August 2022 Ischemic cardiomyopathy with ejection fraction 45% Chronic kidney disease stage III, creatinine near baseline Dementia Hospital Course: Patient is a 77-year-old male with history of coronary artery disease status post stenting, dementia, and enlarged prostate who presented to the ER via EMS with a syncopal event. In the ER he underwent an extensive evaluation. His vital signs within normal limits on arrival. Laboratory analysis was remarkable for platelets of 135 (baseline 137-146), d-dimer 0.71 (normal for age adjustment which would predict 0.79 (Wells' score is 0) being the upper limit of normal), sodium 136, creatinine 1.54 (baseline of 1.28-1.44), bilirubin of 1.7, and lipase of 331. He was placed in observation for chest pain. His orthostatic vital signs were negative. His troponins remained negative. His vital signs were stable and he was satting well on room air. He was seen by cardiology. He had a repeat echocardiogram completed which showed a preserved ejection fraction at 55% with mild right ventricular dilatation. He was determined stable for discharge home. Follow-up: Dr. Seymour on 10/26 for low dose stress test, Dr. Johnson in 1 week. Check blood pressure and make a log. Patient seen and examined at bedside. No chest pain, no more dizziness, feels well and wants to go home. Vital signs reviewed and stable. General: nontoxic, no distress, appears at stated age Cardiovascular: S1S2 reg, no murmur, positive posterior tibial pulse bilateral, Lungs: CTA bilateral, no rhonchi, no rales , no accessory muscle use Abdominal: soft, nontender to palpation, no guarding, no appreciable organomegaly Ext: no gross muscle atrophy, no edema b/l lower extremities, no contractures Neuro: CN II-XI grossly intact, no focal neuro deficits Psych: Alert, oriented, appropriate affect A total of 45 minutes of time were spent preparing this complex discharge summary. Patient was discharged on 10/17/22. This dictation was prepared using [employer] voice recognition software. Though every attempt is made to correct errors during dictation some may still exist. Patient Condition at Discharge: Stable Plan - Discharge Summary New Discharge Prescriptions: Continue Memantine [Namenda] 5 mg PO BID Aspirin 81 mg PO DAILY tab Atorvastatin [Lipitor] 80 mg PO DAILY #30 tab Metoprolol Tartrate [Lopressor] 25 mg PO BID #60 tab Clopidogrel [Plavix] 75 mg PO DAILY #30 tab Multivitamin [Multivitamins Adult Gummies] 1 tab PO DAILY Losartan [Cozaar] 12.5 mg PO DAILY #30 tab Tamsulosin [Flomax] 0.4 mg PO DAILY Isosorbide Mononitrate ER [Imdur] 30 mg PO DAILY #30 tab Discharge Medication List Memantine [Namenda] 5 mg PO BID 08/25/22 [History] Tamsulosin [Flomax] 0.4 mg PO DAILY 08/25/22 [History] Aspirin 81 mg PO DAILY tab 08/28/22 [Rx] Atorvastatin [Lipitor] 80 mg PO DAILY #30 tab 08/28/22 [Rx] Clopidogrel [Plavix] 75 mg PO DAILY #30 tab 08/28/22 [Rx] Isosorbide Mononitrate ER [Imdur] 30 mg PO DAILY #30 tab 08/28/22 [Rx] Metoprolol Tartrate [Lopressor] 25 mg PO BID #60 tab 08/28/22 [Rx] Multivitamin [Multivitamins Adult Gummies] 1 tab PO DAILY 10/16/22 [History] Losartan [Cozaar] 12.5 mg PO DAILY #30 tab 10/17/22 [Rx] Follow up Appointment(s)/Referral(s): Sergio Johnson DO [Primary Care Provider] - 1-2 days Leonardo Padron DO [STAFF PHYSICIAN] - 1 Week (and for stress test scheduled on 10/26/22) Activity/Diet/Wound Care/Special Instructions: Activity: As tolerated Diet: Heart healthy Special Instructions: Check Blood Pressure Once daily and make a list for Dr. Padron Take medications as prescribed Discharge Disposition: HOME SELF-CARE
[2022-10-17 19:15] LABS: Chol/HDL Ratio 2.29 Ratio; LDL Cholesterol,Calculated 45.3 mg/dL (0.0-131.0); VLDL Calculation 10.44 mg/dL (5.00-40.00)
== END 2022-10-17 14:16 | disposition home or self-care (01) ==
LOC: EC 13:13 → 6NMEDSUR 16:13
PROVIDERS: ADMIT Internal Medicine; ATTEND Internal Medicine
DX: R55 Syncope and collapse (principal); R07.9 Chest pain, unspecified; I95.9 Hypotension, unspecified; R79.1 Abnormal coagulation profile; J44.9 Chronic obstructive pulmonary disease, unspecified; J98.11 Atelectasis; I25.110 Atherosclerotic heart disease of native coronary artery with unstable angina pectoris; I25.2 Old myocardial infarction; I25.5 Ischemic cardiomyopathy; I12.9 Hypertensive chronic kidney disease with stage 1 through stage 4 chronic kidney disease, or unspecified chronic kidney disease; N18.30 Chronic kidney disease, stage 3 unspecified; F03.90 Unspecified dementia, unspecified severity, without behavioral disturbance, psychotic disturbance, mood disturbance, and anxiety; R41.3 Other amnesia; E78.5 Hyperlipidemia, unspecified; Z95.5 Presence of coronary angioplasty implant and graft; Z79.02 Long term (current) use of antithrombotics/antiplatelets; Z79.82 Long term (current) use of aspirin; Z79.899 Other long term (current) drug therapy; N40.0 Benign prostatic hyperplasia without lower urinary tract symptoms; Z87.440 Personal history of urinary (tract) infections; Z82.49 Family history of ischemic heart disease and other diseases of the circulatory system; Z84.1 Family history of disorders of kidney and ureter; Z88.5 Allergy status to narcotic agent
CPT/HCPCS: 99291; 36415; 93005; 93308; 85379; 83880; 80061; 80053; 80048; 83690; 83735; 84484; 85025; 85027; 85610; 85730; 81003; 71046; G0378 ×2

== ENCOUNTER 2023-07-07 08:54 | Emergency (ER) | payer MEDICARE, OTHER ==
--- NOTE | 2023-07-07 09:27 | ED ---
General Adult HPI - General Chief complaint: Urogenital Stated complaint: Urinary Symptoms Time Seen by Provider: 07/07/23 09:00 Source: patient, RN notes reviewed, old records reviewed Mode of arrival: ambulatory Limitations: no limitations - History of Present Illness Initial comments: This is an 78-year-old male who who presents to the emergency department complaining that he is constantly feeling the urge to urinate and it kept him up all night. Patient assumed that he had urinary retention. Patient denies any fever chills patient denies any pain. Patient states he has prostate issues. Patient states that he has had complete urinary retention in the past. Patient denies any back pain. Patient denies any other symptoms - Related Data Home Medications Medication Instructions Recorded Confirmed Memantine [Namenda] 5 mg PO BID 08/25/22 10/16/22 Tamsulosin [Flomax] 0.4 mg PO DAILY 08/25/22 10/16/22 Multivitamin [Multivitamins Adult 1 tab PO DAILY 10/16/22 10/16/22 Gummies] Previous Rx's Medication Instructions Recorded Aspirin 81 mg PO DAILY tab 08/28/22 Atorvastatin [Lipitor] 80 mg PO DAILY #30 tab 08/28/22 Clopidogrel [Plavix] 75 mg PO DAILY #30 tab 08/28/22 Isosorbide Mononitrate ER [Imdur] 30 mg PO DAILY #30 tab 08/28/22 Metoprolol Tartrate [Lopressor] 25 mg PO BID #60 tab 08/28/22 Losartan [Cozaar] 12.5 mg PO DAILY #30 tab 10/17/22 Allergies Allergy/AdvReac Type Severity Reaction Status Date / Time codeine Allergy Unknown Verified 07/07/23 08:59 Review of Systems ROS Statement: Those systems with pertinent positive or pertinent negative responses have been documented in the HPI. ROS Other: All systems not noted in ROS Statement are negative. Past Medical History Past Medical History: Coronary Artery Disease (CAD), Dementia, Memory Impairment, Myocardial Infarction ([place]), Prostate Disorder Additional Past Medical History / Comment(s): UTI in the past, cardiomyopathy Last Myocardial Infarction Date:: august 25 2022 History of Any Multi-Drug Resistant Organisms: None Reported Past Surgical History: Heart Catheterization With Stent Past Anesthesia/Blood Transfusion Reactions: No Reported Reaction Date of Last Stent Placement:: 08/26/2022 Past Psychological History: No Psychological Hx Reported Smoking Status: Never smoker Past Alcohol Use History: None Reported Past Drug Use History: None Reported - Past Family History Mother Family Medical History: Unable to Obtain Brother(s) Family Medical History: Deep Vein Thrombosis (DVT), Myocardial Infarction ([place]), Renal Disease General Exam - General Exam Comments Initial Comments: GENERAL: Patient is well-developed and well-nourished. Patient is nontoxic and well- hydrated and is in no acute distress. ENT: Neck is soft and supple. No significant lymphadenopathy is noted. Oropharynx is clear. Moist mucous membranes. Neck has full range of motion without eliciting any pain. EYES: The sclera were anicteric and conjunctiva were pink and moist. Extraocular movements were intact and pupils were equal round and reactive to light. Eyelids were unremarkable. PULMONARY: Unlabored respirations. Good breath sounds bilaterally. No audible rales rhonchi or wheezing was noted. CARDIOVASCULAR: There is a regular rate and rhythm without any murmurs gallops or rubs. ABDOMEN: Soft and nontender with normal bowel sounds. SKIN: Skin is clear with no lesions or rashes and otherwise unremarkable. NEUROLOGIC: Patient is alert and oriented x3. Cranial nerves II through XII are grossly intact. Motor and sensory are also intact. Normal speech, volume and content. Symmetrical smile. MUSCULOSKELETAL: Normal extremities with adequate strength and full range of motion. LYMPHATICS: No significant lymphadenopathy is noted PSYCHIATRIC: Normal psychiatric evaluation. Limitations: no limitations Course Vital Signs 07/07/23 07/07/23 08:57 10:07 Temperature 98 F 98.1 F Pulse Rate 112 H 65 Respiratory 20 18 Rate Blood Pressure 125/68 119/97 O2 Sat by Pulse 97 99 Oximetry Medical Decision Making - Medical Decision Making Was pt. sent in by a medical professional or institution (, PA, CHEMICAL LABORATORY TECHNICIAN, urgent care, hospital, or correction...) When possible be specific @ -No Did you speak to anyone other than the patient for history (EMS, parent, family, police, friend...)? What history was obtained from this source @ -No Did you review nursing and triage notes (agree or disagree)? Why? @ -I reviewed and agree with nursing and triage notes Were old charts reviewed (outside hosp., previous admission, EMS record, old EKG, old radiological studies, urgent care reports/EKG's, correction records)? Report findings @ -I reviewed prior charts and prior lab work on this patient Differential Diagnosis (chest pain, altered mental status, abdominal pain women, abdominal pain men, vaginal bleeding, weakness, fever, dyspnea, syncope, headache, dizziness, GI bleed, back pain, seizure, CVA, palpatations, mental health, musculoskeletal)? @ -Urinary retention, urinary infection, pyelonephritis, urinary urgency, dysuria EKG interpreted by me (3pts min.). @ -As above X-rays interpreted by me (1pt min.). @ -None done CT interpreted by me (1pt min.). @ -None done U/S interpreted by me (1pt. min.). @ -None done What testing was considered but not performed or refused? (CT, X-rays, U/S, labs)? Why? @ -None What meds were considered but not given or refused? Why? @ -None Did you discuss the management of the patient with other professionals (professionals i.e. , PA, CHEMICAL LABORATORY TECHNICIAN, lab, RT, psych nurse, social media specialist, board filler, teacher, armed custom protection officer, medical case worker)? Give summary @ -No Was smoking cessation discussed for >3mins.? @ -No Was critical care preformed (if so, how long)? @ -No Were there social determinants of health that impacted care today? How? (Homel essness, low income, unemployed, alcoholism, drug addiction, transportation, low edu. Level, literacy, decrease access to med. care, longterm, rehab)? @ -No Was there de-escalation of care discussed even if they declined (Discuss DNR or withdrawal of care, Hospice)? DNR status @ -No What co-morbidities impacted this encounter? (DM, HTN, Smoking, COPD, CAD, Cancer, CVA, ARF, Chemo, Hep., AIDS, mental health diagnosis, sleep apnea, morbid obesity)? @ -None Was patient admitted / discharged? Hospital course, mention meds given and route, prescriptions, significant lab abnormalities, going to OR and other pertinent info. @ -A bladder scan was done on the patient he had 143 mL in his bladder. Patient had a soft abdomen no pain. Patient urine showed no infection and the patient's blood work was at his baseline. Undiagnosed new problem with uncertain prognosis? @ -No Drug Therapy requiring intensive monitoring for toxicity (Heparin, Nitro, Insulin, Cardizem)? @ -No Were any procedures done? @ -No Diagnosis/symptom? @ -Urinary urgency Acute, or Chronic, or Acute on Chronic? @ -Acute Uncomplicated (without systemic symptoms) or Complicated (systemic symptoms)? @ -uncomplicated Side effects of treatment? @ -No Exacerbation, Progression, or Severe Exacerbation? @ -No Poses a threat to life or bodily function? How? (Chest pain, [place], [place], pneumonia, PE, COPD, DKA, ARF, appy, cholecystitis, CVA, Diverticulitis, Homicidal, Suicidal, threat to staff... and all critical care pts) @ -No - Lab Data Result diagrams: 07/07/23 09:31 07/07/23 09:31 Lab Results 07/07/23 07/07/23 07/07/23 Range/Units 09:31 09:31 09:31 WBC 4.5 (3.8-10.6) k/uL RBC 4.04 L (4.30-5.90) m/uL Hgb 13.3 (13.0-17.5) gm/dL Hct 37.9 L (39.0-53.0) % MCV 93.9 (80.0-100.0) fL MCH 32.8 (25.0-35.0) pg MCHC 35.0 (31.0-37.0) g/dL RDW 12.4 (11.5-15.5) % Plt Count 139 L (150-450) k/uL MPV 9.0 Neutrophils % 64 % Lymphocytes % 18 % Monocytes % 7 % Eosinophils % 9 % Basophils % 1 % Neutrophils # 2.9 (1.3-7.7) k/uL Lymphocytes # 0.8 L (1.0-4.8) k/uL Monocytes # 0.3 (0-1.0) k/uL Eosinophils # 0.4 (0-0.7) k/uL Basophils # 0.0 (0-0.2) k/uL Sodium 138 (137-145) mmol/L Potassium 4.2 (3.5-5.1) mmol/L Chloride 111 H (98-107) mmol/L Carbon Dioxide 23 (22-30) mmol/L Anion Gap 4 mmol/L BUN 17 (9-20) mg/dL Creatinine 1.41 H (0.66-1.25) mg/dL Est GFR (CKD-EPI)AfAm 54 (>60 ml/min/1.73 sqM) Est GFR (CKD-EPI)NonAf 47 (>60 ml/min/1.73 sqM) Glucose 102 H (74-99) mg/dL Calcium 8.4 (8.4-10.2) mg/dL Total Bilirubin 1.4 H (0.2-1.3) mg/dL AST 23 (17-59) U/L ALT 17 (4-49) U/L Alkaline Phosphatase 106 (38-126) U/L Total Protein 6.2 L (6.3-8.2) g/dL Albumin 3.2 L (3.5-5.0) g/dL Urine Color Colorless Urine Appearance Clear (Clear) Urine pH 7.0 (5.0-8.0) Ur Specific Latty 1.010 (1.001-1.035) Urine Protein Negative (Negative) Urine Glucose (UA) Negative (Negative) Urine Ketones Negative (Negative) Urine Blood Negative (Negative) Urine Nitrite Negative (Negative) Urine Bilirubin Negative (Negative) Urine Urobilinogen <2.0 (<2.0) mg/dL Ur Leukocyte Esterase Negative (Negative) Disposition Clinical Impression: Urinary urgency Disposition: HOME SELF-CARE Condition: Good Instructions (If sedation given, give patient instructions): Urinary Urgency and Frequency (DC) Is patient prescribed a controlled substance at d/c from ED?: No Referrals: Jered Prasad MD [STAFF PHYSICIAN] - 1-2 days Time of Disposition: 10:20
[2023-07-07 09:43] LABS: Basophils % (A) 1 %; Eosinophils # (A) 0.4 k/uL (0-0.7); Eosinophils % (A) 9 %; HCT 37.9 % (39.0-53.0); HGB 13.3 gm/dL (13.0-17.5); Lymphocytes # (A) 0.8 k/uL (1.0-4.8); Lymphocytes % (A) 18 %; MCH 32.8 pg (25.0-35.0); MCV 93.9 fL (80.0-100.0); Monocytes # (A) 0.3 k/uL (0-1.0); Monocytes % (A) 7 %; Neutrophils # (A) 2.9 k/uL (1.3-7.7); Neutrophils % (A) 64 %; Platelet Count 139 k/uL (150-450); RBC 4.04 m/uL (4.30-5.90); RDW 12.4 % (11.5-15.5); WBC 4.5 k/uL (3.8-10.6)
[2023-07-07 09:44] LABS: Appearance,Urine Clear (Clear); Bilirubin,Urine Negative (Negative); Blood,Urine Negative (Negative); Color,Urine Colorless; Glucose,Urine (UA) Negative (Negative); Ketones,Urine Negative (Negative); Leukocyte Esterase,Urine Negative (Negative); Nitrite,Urine Negative (Negative); Protein,Urine Negative (Negative); Urobilinogen,Urine <2.0 mg/dL (<2.0)
[2023-07-07 10:12] VITALS: RESP 18; TEMP 98.1
[2023-07-07 10:14] LABS: ALT 17 U/L (4-49); AST 23 U/L (17-59); African American GFR (CKD) 54 (>60 ml/min/1.73 sqM); Albumin 3.2 g/dL (3.5-5.0); Alkaline Phosphatase 106 U/L (38-126); Anion Gap 4 mmol/L; Blood Urea Nitrogen 17 mg/dL (9-20); Calcium 8.4 mg/dL (8.4-10.2); Carbon Dioxide 23 mmol/L (22-30); Chloride 111 mmol/L (98-107); Glucose 102 mg/dL (74-99); Non-African American GFR(CKD) 47 (>60 ml/min/1.73 sqM); Potassium 4.2 mmol/L (3.5-5.1); Sodium 138 mmol/L (137-145); Total Bilirubin 1.4 mg/dL (0.2-1.3); Total Protein 6.2 g/dL (6.3-8.2)
[2023-07-07 10:44] VITALS: BP 120/86; PULSE 73
== END 2023-07-07 10:38 | disposition home or self-care (01) ==
LOC: EC 08:54
DX: R39.15 Urgency of urination (principal); I25.10 Atherosclerotic heart disease of native coronary artery without angina pectoris; I25.2 Old myocardial infarction; Z88.5 Allergy status to narcotic agent
CPT/HCPCS: 36415; 80053; 81003; 85025; 99284

== ENCOUNTER 2023-08-08 09:14 | Observation (INO) | payer MEDICARE, OTHER ==
[2023-08-08 10:13] LABS: Basophils % (A) 1 %; Eosinophils # (A) 0.2 k/uL (0-0.7); Eosinophils % (A) 5 %; HCT 42.7 % (39.0-53.0); HGB 14.1 gm/dL (13.0-17.5); Lymphocytes # (A) 0.9 k/uL (1.0-4.8); Lymphocytes % (A) 22 %; MCH 30.7 pg (25.0-35.0); MCV 93.1 fL (80.0-100.0); Monocytes # (A) 0.3 k/uL (0-1.0); Monocytes % (A) 8 %; Neutrophils # (A) 2.5 k/uL (1.3-7.7); Neutrophils % (A) 63 %; Platelet Count 146 k/uL (150-450); RBC 4.59 m/uL (4.30-5.90); RDW 12.8 % (11.5-15.5); WBC 4.1 k/uL (3.8-10.6)
[2023-08-08] MEDS: ASPIRIN 81 MG PO STA (10:13)
[2023-08-08] MEDS: NITROGLYCERIN SL TABS 0.4 MG TAB SUBLINGUAL STA (10:14)
--- NOTE | 2023-08-08 10:25 | ED ---
Chest Pain HPI - General Chief Complaint: Upper Respiratory Infection Stated Complaint: Cough Time Seen by Provider: 08/08/23 09:35 Source: patient, RN notes reviewed Mode of arrival: ambulatory Limitations: no limitations - History of Present Illness Initial Comments: This is an 78-year-old male who presents to the emergency department for chest pain and coughing. Family states that he was mowing the lawn yesterday, and wonders if he may have overexerted himself. Today he started to complain of chest pressure that he describes as almost feeling like a "bruise". Denies any shortness of breath associated with this. He did start coughing this morning, and his states that there was some blood mixed in with it. He does have a cardiac history, and had a stent placed in July of last year. Currently follows with Dr. Padron, cardiology. Complaint: chest pain - Related Data Home Medications Medication Instructions Recorded Confirmed Tamsulosin [Flomax] 0.4 mg PO DAILY 08/25/22 08/08/23 Amoxicillin 500 mg PO TID 08/08/23 08/08/23 Vibegron [Gemtesa] 75 mg PO DAILY 08/08/23 08/08/23 Previous Rx's Medication Instructions Recorded Aspirin 81 mg PO DAILY tab 08/28/22 Atorvastatin [Lipitor] 80 mg PO DAILY #30 tab 08/28/22 Clopidogrel [Plavix] 75 mg PO DAILY #30 tab 08/28/22 Isosorbide Mononitrate ER [Imdur] 30 mg PO DAILY #30 tab 08/28/22 Metoprolol Tartrate [Lopressor] 25 mg PO BID #60 tab 08/28/22 Allergies Allergy/AdvReac Type Severity Reaction Status Date / Time codeine Allergy Unknown Verified 08/08/23 09:26 Review of Systems ROS Statement: Those systems with pertinent positive or pertinent negative responses have been documented in the HPI. ROS Other: All systems not noted in ROS Statement are negative. Past Medical History Past Medical History: Coronary Artery Disease (CAD), Dementia, Memory Impairment, Myocardial Infarction ([place]), Prostate Disorder Additional Past Medical History / Comment(s): UTI in the past, cardiomyopathy Last Myocardial Infarction Date:: august 25 2022 History of Any Multi-Drug Resistant Organisms: None Reported Past Surgical History: Heart Catheterization With Stent Past Anesthesia/Blood Transfusion Reactions: No Reported Reaction Date of Last Stent Placement:: 08/26/2022 Past Psychological History: No Psychological Hx Reported Smoking Status: Never smoker Past Alcohol Use History: None Reported Past Drug Use History: None Reported - Past Family History Mother Family Medical History: Unable to Obtain Brother(s) Family Medical History: Deep Vein Thrombosis (DVT), Myocardial Infarction ([place]), Renal Disease General Exam Limitations: no limitations General appearance: alert, in no apparent distress Head exam: Present: atraumatic, normocephalic, normal inspection Respiratory exam: Present: normal lung sounds bilaterally. Absent: respiratory distress, wheezes, rales, rhonchi, stridor Cardiovascular Exam: Present: regular rate, normal rhythm, normal heart sounds. Absent: systolic murmur, diastolic murmur, rubs, gallop, clicks Neurological exam: Present: alert, oriented X3, CN II-XII intact Psychiatric exam: Present: normal affect, normal mood Skin exam: Present: warm, dry, intact, normal color. Absent: rash Course Vital Signs 08/08/23 08/08/23 09:24 09:41 Temperature 97.8 F Pulse Rate 73 Respiratory 18 18 Rate Blood Pressure 122/82 O2 Sat by Pulse 94 L Oximetry Chest Pain MDM - MDM This is an 78 year old male who presents to the emergency department for chest pain. Was pt. sent in by a medical professional or institution? @ -No Did you speak to anyone other than the patient for history? @ -No Did you review nursing and triage notes? @ -Yes, and I agree, it is accurate with regards to the patient's symptoms. Were old charts reviewed? @ -No Differential Diagnosis? @ -Differential Chest Pain: Stable Angina, Unstable Angina, STEMI, NSTEMI Aortic Dissection, Pneumothorax, Musculoskeletal, Esophageal Spasm GERD, Cholecystitis, Pancreatitis, Zoster, this is not meant to be an all-inclusive list. EKG interpreted by me (3pts min.)? @ -EKG interpreted by me demonstrating the following: Sinus rhythm. Ventricular rate 60 bpm, OK interval 154 ms, QRS duration 82 ms, QTc 409 ms. X-rays interpreted by me (1pt min.)? @ -Chest x-ray obtained, my interpretation identifies no localized consolidations or infiltrates. CT interpreted by me (1pt min.)? @ -Not obtained U/S interpreted by me (1pt. min.)? @ -Not obtained What testing was considered but not performed? (CT, X-rays, U/S, labs)? Why? @ -None What meds were considered but not given? Why? @ -None Did you discuss the management of the patient with other professionals? @ -Yes, Dr. Jimenez, who accepts the patient for admission. Did you reconcile home meds? @ -No Was smoking cessation discussed for >3mins.? @ -No Was critical care preformed (if so, how long)? @ -No Were there social determinants of health that impacted care today? How? (Homelessness, low income, unemployed, alcoholism, drug addiction, transportation, low edu. Level, literacy, decrease access to med. care, [place] [facility], rehab)? @ -No Was there de-escalation of care discussed even if they declined? (Discuss DNR or withdrawal of care, Hospice)? @ -No What co-morbidities impacted this encounter? (DM, HTN, Smoking, COPD, CAD, Cancer, CVA, Hep., AIDS, mental health diagnosis, sleep apnea, morbid obesity)? @ -CAD Was patient admitted / discharged? @ -Admitted. On arrival, patient was complaining of 8 out of 10 chest pain. He was given aspirin and nitroglycerin with resolution of symptoms. Lab work found to be fairly unremarkable. Troponin and D-dimer negative. COVID, influenza, and RSV testing negative. Chest x-ray reveals no acute process. Given the patient's cardiac history and resolution of symptoms with nitroglycerin, he will be admitted for chest pain observation. Serial troponins ordered and consult placed for cardiology. Undiagnosed new problem with uncertain prognosis? @ -None Drug Therapy requiring intensive monitoring for toxicity (Heparin, Nitro, Insulin, Cardizem)? @ -None Were any procedures done? @ -None Diagnosis/symptom? @ -Chest pain Acute, or Chronic, or Acute on Chronic? @ -Acute Uncomplicated (without systemic symptoms) or Complicated (systemic symptoms)? @ -Complicated Side effects of treatment? @ -None Exacerbation, Progression, or Severe Exacerbation] @ -Not applicable Poses a threat to life or bodily function? @ -Yes This case was discussed in detail with the attending ED physician, Dr. Vail. Presentation, findings, and treatment plan discussed in detail as well. Disposition Clinical Impression: Chest pain Disposition: ADMITTED IP TO THIS [facility] Time of Disposition: 12:25
[2023-08-08 10:26] LABS: INR 1.2 (<1.2); Partial Thromboplastin Time 25.3 sec (22.0-30.0); Prothrombin Time 12.4 sec (10.0-12.5)
[2023-08-08 10:50] LABS: ALT 20 U/L (4-49); AST 26 U/L (17-59); African American GFR (CKD) 54 (>60 ml/min/1.73 sqM); Albumin 3.5 g/dL (3.5-5.0); Alkaline Phosphatase 105 U/L (38-126); Anion Gap 7 mmol/L; Blood Urea Nitrogen 18 mg/dL (9-20); Calcium 8.8 mg/dL (8.4-10.2); Carbon Dioxide 23 mmol/L (22-30); Chloride 108 mmol/L (98-107); Glucose 100 mg/dL (74-99); Magnesium 2.1 mg/dL (1.6-2.3); Non-African American GFR(CKD) 47 (>60 ml/min/1.73 sqM); Potassium 4.5 mmol/L (3.5-5.1); Sodium 138 mmol/L (137-145); Total Bilirubin 1.5 mg/dL (0.2-1.3)
--- NOTE | 2023-08-08 11:00 | XR ---
EXAMINATION TYPE: XR chest 2V DATE OF EXAM: 08/08/2023 COMPARISON: 06/29/2023 HISTORY: Chest pain TECHNIQUE: Frontal and lateral views of the chest are obtained. FINDINGS: There is no focal air space opacity, pleural effusion, or pneumothorax seen. The cardiac silhouette size is within normal limits. The osseous structures are intact. IMPRESSION: No acute cardiopulmonary process.
[2023-08-08] MEDS ORDERED: MORPHINE SULFATE 4 MG/ML SYRINGE IV PRN (12:25)
[2023-08-08] MEDS ORDERED: ACETAMINOPHEN TAB 325 MG TAB PO PRN (12:25)
[2023-08-08] MEDS ORDERED: ONDANSETRON 4 MG/2 ML VIAL IVP PRN (12:25)
[2023-08-08] MEDS ORDERED: NALOXONE 0.4 MG/ML 1 ML VIAL IV PRN (12:25)
[2023-08-08] MEDS ORDERED: HYDROcodone/APAP 5-325MG 1 EACH TAB PO PRN (12:25)
--- NOTE | 2023-08-08 17:07 | P.HPIM ---
History of Present Illness This is a pleasant 78 years old female with past medical history of multiple medical problems Patient presents because of chest pain but as per staff and signout but however when I asked the patient and with the help of his significant other/ at bedside she still states he is coming basically because of hemoptysis. She states that patient has been coughing for the last few days he went to his PCP who prescribed an antibiotic however this morning he was noted he is coughing up a blood and associated also with some chest pain which felt like a pressure in the middle of the chest, it was more severe on admission now feels better, increased with tenderness No associated dyspnea He went to see his parachute packer Dr. Padron about 1 week ago for routine checkup and he has been told that everything looks good No this is noted He has been seen by urologist Patient denies dysuria. No diarrhea or vomiting or abdominal pain. No headache dizziness weakness or numbness. No alcohol except occasionally. No illicit drugs or smoking Vitals look stable CBC is unremarkable except for mild low platelet 147 K Creatinine at baseline 1.4, baseline is 1.3-1.5. Rest of BMP is unremarkable Liver enzymes not elevated but bilirubin slightly up 1.5. INR is within the reference range 1.2. Troponins x 2 are negative with less than 0.012. D-dimer is -ve at 0.33 Influenza A and type B, RSV, SARS (coronavirus) are undetected Chest x-ray: No acute process EKG showing sinus rhythm at [address]-T changes Patient is currently on his home dose of aspirin and Plavix Review of Systems Review of systems CONSTITUTIONAL: No fever, no malaise, no fatigue. HEENT: No recent visual problems or hearing problems. Denied any sore throat. CARDIOVASCULAR: No orthopnea, PND, no palpitations, no syncope. PULMONARY: No shortness of breath, no cough, no hemoptysis. GASTROINTESTINAL: No diarrhea, no nausea, no vomiting, no abdominal pain. Normoactive bowel sounds. NEUROLOGICAL: No headaches, no weakness, no numbness. HEMATOLOGICAL: Denies any bleeding or petechiae. GENITOURINARY: Denies any burning micturition, frequency, or urgency. MUSCULOSKELETAL/RHEUMATOLOGICAL: Denies any joint pain, swelling, or any muscle pain. ENDOCRINE: Denies any polyuria or polydipsia. Past Medical History Past Medical History: Coronary Artery Disease (CAD), Dementia, Memory Impairment, Myocardial Infarction ([place]), Prostate Disorder Additional Past Medical History / Comment(s): UTI in the past, cardiomyopathy Last Myocardial Infarction Date:: august 25 2022 History of Any Multi-Drug Resistant Organisms: None Reported Past Surgical History: Heart Catheterization With Stent Past Anesthesia/Blood Transfusion Reactions: No Reported Reaction Date of Last Stent Placement:: 08/26/2022 Past Psychological History: No Psychological Hx Reported Smoking Status: Never smoker Past Alcohol Use History: None Reported Past Drug Use History: None Reported - Past Family History Mother Family Medical History: Unable to Obtain Brother(s) Family Medical History: Deep Vein Thrombosis (DVT), Myocardial Infarction ([place]), Renal Disease Medications and Allergies Home Medications Medication Instructions Recorded Confirmed Type Tamsulosin [Flomax] 0.4 mg PO DAILY 08/25/22 08/08/23 History Aspirin 81 mg PO DAILY tab 08/28/22 08/08/23 Rx Atorvastatin [Lipitor] 80 mg PO DAILY #30 tab 08/28/22 08/08/23 Rx Clopidogrel [Plavix] 75 mg PO DAILY #30 tab 08/28/22 08/08/23 Rx Isosorbide Mononitrate ER [Imdur] 30 mg PO DAILY #30 tab 08/28/22 08/08/23 Rx Metoprolol Tartrate [Lopressor] 25 mg PO BID #60 tab 08/28/22 08/08/23 Rx Amoxicillin 500 mg PO TID 08/08/23 08/08/23 History Vibegron [Gemtesa] 75 mg PO DAILY 08/08/23 08/08/23 History Allergies Allergy/AdvReac Type Severity Reaction Status Date / Time codeine Allergy Unknown Verified 08/08/23 09:26 Physical Exam Vitals: Vital Signs Temp Pulse Resp BP Pulse Ox 08/08/23 16:00 58 L 18 96/61 97 08/08/23 15:00 58 L 18 102/76 96 08/08/23 14:00 62 16 110/72 96 08/08/23 13:00 60 16 108/73 98 08/08/23 12:00 62 18 113/74 93 L 08/08/23 11:00 60 18 115/77 97 08/08/23 10:00 60 18 117/72 97 04/11/24 09:41 18 08/08/23 09:24 97.8 F 73 18 122/82 94 L Intake and Output 08/08/23 08/08/23 08/08/23 06:59 14:59 22:59 Other: Weight 77.111 kg GENERAL: The patient is alert and oriented x3, not in any acute distress. Well developed, well nourished. HEENT: Pupils are round and equally reacting to light. EOMI. No scleral icterus. No conjunctival pallor. Normocephalic, atraumatic. No pharyngeal erythema. No thyromegaly. CARDIOVASCULAR: S1 and S2 present. No murmurs, rubs, or gallops. PULMONARY: Chest is clear to auscultation, no wheezing , no crackles. ABDOMEN: Soft, nontender, nondistended, normoactive bowel sounds. No palpable organomegaly. MUSCULOSKELETAL: No joint swelling or deformity. EXTREMITIES: No cyanosis, clubbing, or pedal edema. NEUROLOGICAL: Gross neurological examination did not reveal any focal deficits. SKIN: No rashes. no petechiae. Results CBC & Chem 7: 08/08/23 09:58 08/08/23 09:58 Labs: Abnormal Lab Results - Last 24 Hours (Table) 08/08/23 08/08/23 08/08/23 Range/Units 09:58 09:58 09:58 Plt Count 146 L (150-450) k/uL Lymphocytes # 0.9 L (1.0-4.8) k/uL INR 1.2 H (<1.2) Chloride 108 H (98-107) mmol/L Creatinine 1.42 H (0.66-1.25) mg/dL Glucose 100 H (74-99) mg/dL Total Bilirubin 1.5 H (0.2-1.3) mg/dL Assessment and Plan Assessment: Hemoptysis, associated with upper respiratory tract infection few days prior to hospitalization Chest pain, rule out cardiac causes patient states that Patient also explained that he has urinary urgency Chronic kidney disease stage III Coronary artery disease s/p stent Plan: Continue with serial troponin Continue with aspirin and Plavix Cardiology consult. Will ask pulmonary to evaluate the patient for his hemoptysis, check urine analysis and bladder scan Labs and medication were reviewed.. Continue same treatment. Continue with symptomatic treatment. Resume home medication. Monitor labs and vitals. DVT and GI prophylaxis. Further recommendations as per clinical course of the patient DVT prophylaxis: S on aspirin and Plavix. We will not Start subcutaneous heparin as patient with hemoptysis GI Prophylaxis: Pepcid Prognosis is guarded
--- NOTE | 2023-08-08 21:29 | P.CNPUL ---
History of Present Illness Consult date: 08/08/23 Chief complaint: Hemoptysis History of present illness: 77-year-old male patient known history of coronary artery disease, hospitalized approximately a year ago for chest pain and elevated troponins. At that time, his echocardiogram showed a left atrial ejection fraction of 45%. Cardiac catheterization was done on 08/26/2022 and the patient had 2 drug-eluting stents placed in the LAD and he tolerated the procedure well and following that he was discharged home on aspirin, Plavix, metoprolol and Imdur. He is also known to have BPH and chronic stage III kidney disease and dementia.. He was subsequently readmitted to the hospital in September 2022 for a syncopal event. His echocardiogram was repeated and the patient's ejection fraction improved up to 55% with mild RV dilatation. He was seen again by cardiology and the patient was discharged essentially on the same medications. He subsequently came back to the emergency department today complaining of chest pain and coughing. He apparently was mowing the lawn yesterday and he started complaining of pain. Denies having any shortness of breath. He had some increased cough. For that reason, he came into the emergency department. The blood work thus far shows a white cell count of 4.1, hemoglobin 14.1 and a platelet count of 146, normal coagulation profile, D-dimer is at 0.33, creatinine is stable at 1.4 with a BUN of 18 and a sodium levels at 138. Troponins were negative. UA was negative. The viral screen was negative. Chest x-ray showed no acute cardiopulmonary abno rmalities. EKG showing a normal sinus rhythm. The patient accordingly was admitted for further workup. A pulmonary consultation was also requested as the patient reported some cough and with some minimal amount of mucus with mixed blood. The patient is a lifetime non-smoker. Does not have any previous history of lung disease. No use of any respiratory medications or inhalers. He did encounter a recent URI. No active cough and congestion at this point in time. No shortness of breath. No trauma to the chest. No previous history of DVT or pulmonary embolism. No epistaxis. No hematemesis. He is on room air oxygen and he is calm and comfortable ambulating and free of any chest disco mfort at this point in time. Review of Systems Constitutional: Reports fatigue Eyes: denies as per HPI, denies blurred vision, denies bulging eye, denies decreased vision, denies diplopia, denies discharge, denies dry eye, denies irritation, denies itching, denies pain, denies photophobia, denies loss of peripheral vision, denies loss of vision, denies tunnel vision/blind spots Ears: deny: decreased hearing, ear discharge, earache, tinnitus Ears, nose, mouth and throat: Reports as per HPI Breasts: absent: as per HPI, gynecomastia Cardiovascular: Reports chest pain Respiratory: Reports hemoptysis Gastrointestinal: Reports as per HPI Genitourinary: Reports urinary frequency, Reports urinary hesitancy, Reports urinary retention Musculoskeletal: Reports as per HPI Musculoskeletal: absent: ankle pain, ankle stiffness, ankle swelling Integumentary: Reports as per HPI Neurological: Reports as per HPI Endocrine: Reports as per HPI Hematologic/Lymphatic: Reports as per HPI Allergic/Immunologic: Reports as per HPI Past Medical History Past Medical History: Coronary Artery Disease (CAD), Dementia, Memory Impairment, Myocardial Infarction ([place]), Prostate Disorder Additional Past Medical History / Comment(s): UTI in the past, cardiomyopathy Last Myocardial Infarction Date:: august 25 2022 History of Any Multi-Drug Resistant Organisms: None Reported Past Surgical History: Heart Catheterization With Stent Past Anesthesia/Blood Transfusion Reactions: No Reported Reaction Date of Last Stent Placement:: 08/26/2022 Past Psychological History: No Psychological Hx Reported Smoking Status: Never smoker Past Alcohol Use History: None Reported Past Drug Use History: None Reported - Past Family History Mother Family Medical History: Unable to Obtain Brother(s) Family Medical History: Deep Vein Thrombosis (DVT), Myocardial Infarction ([place]), Renal Disease Medications and Allergies Home Medications Medication Instructions Recorded Confirmed Type Tamsulosin [Flomax] 0.4 mg PO DAILY 08/25/22 08/08/23 History Aspirin 81 mg PO DAILY tab 08/28/22 08/08/23 Rx Atorvastatin [Lipitor] 80 mg PO DAILY #30 tab 08/28/22 08/08/23 Rx Clopidogrel [Plavix] 75 mg PO DAILY #30 tab 08/28/22 08/08/23 Rx Isosorbide Mononitrate ER [Imdur] 30 mg PO DAILY #30 tab 08/28/22 08/08/23 Rx Metoprolol Tartrate [Lopressor] 25 mg PO BID #60 tab 05/02/23 04/11/24 Rx Amoxicillin 500 mg PO TID 08/08/23 08/08/23 History Vibegron [Gemtesa] 75 mg PO DAILY 08/08/23 08/08/23 History Allergies Allergy/AdvReac Type Severity Reaction Status Date / Time codeine Allergy Unknown Verified 08/08/23 09:26 Physical Exam Vitals: Vital Signs Temp Pulse Resp BP Pulse Ox 08/08/23 09:41 18 08/08/23 09:24 97.8 F 73 18 122/82 94 L Intake and Output 08/08/23 08/08/23 08/08/23 06:59 14:59 22:59 Other: Weight 77.111 kg General: nontoxic, no distress, appears at stated age, currently on room air oxygen. No signs of any significant respite distress. Derm: warm, dry Eyes: EOMI, no lid lag, anicteric sclera, pupils equal round reactive to light ENT: Nose and ears atraumatic, no thrush, no pharyngeal erythema Cardiovascular: S1S2 reg, no murmur, positive posterior tibial pulse bilateral, no edema, capillary refill less than 2 seconds Lungs: clear to auscultation bilateral, no rhonchi, no rales, no wheeze, no accessory muscle use Abdominal: soft, nontender to palpation, no guarding, no appreciable organomegaly, normal bowel sounds Ext: no gross muscle atrophy, muscle strength 5 out of 5 in b/l upper extremities, no contractures Neuro: CN II-XII grossly intact, light touch intact all 4 extremities, finger to nose within normal limits, Psych: Alert, oriented, appropriate affect Results - Laboratory Findings CBC and BMP: 08/08/23 09:58 08/08/23 09:58 ABG WBC 4.1 k/uL (3.8-10.6) 08/08/23 09:58 RBC 4.59 m/uL (4.30-5.90) 08/08/23 09:58 Hgb 14.1 gm/dL (13.0-17.5) 08/08/23 09:58 Hct 42.7 % (39.0-53.0) 08/08/23 09:58 MCV 93.1 fL (80.0-100.0) 08/08/23 09:58 MCH 30.7 pg (25.0-35.0) 08/08/23 09:58 MCHC 33.0 g/dL (31.0-37.0) 08/08/23 09:58 RDW 12.8 % (11.5-15.5) 08/08/23 09:58 Plt Count 146 k/uL (150-450) L 08/08/23 09:58 MPV 9.0 08/08/23 09:58 Neutrophils % 63 % 08/08/23 09:58 Lymphocytes % 22 % 08/08/23 09:58 Monocytes % 8 % 08/08/23 09:58 Eosinophils % 5 % 08/08/23 09:58 Basophils % 1 % 08/08/23 09:58 Neutrophils # 2.5 k/uL (1.3-7.7) 08/08/23 09:58 Lymphocytes # 0.9 k/uL (1.0-4.8) L 08/08/23 09:58 Monocytes # 0.3 k/uL (0-1.0) 08/08/23 09:58 Eosinophils # 0.2 k/uL (0-0.7) 08/08/23 09:58 Basophils # 0.0 k/uL (0-0.2) 08/08/23 09:58 PT 12.4 sec (10.0-12.5) 08/08/23 09:58 INR 1.2 (<1.2) H 08/08/23 09:58 APTT 25.3 sec (22.0-30.0) 08/08/23 09:58 D-Dimer 0.33 mg/L FEU (<0.60) 08/08/23 09:58 Sodium 138 mmol/L (137-145) 08/08/23 09:58 Potassium 4.5 mmol/L (3.5-5.1) 08/08/23 09:58 Chloride 108 mmol/L (98-107) H 08/08/23 09:58 Carbon Dioxide 23 mmol/L (22-30) 08/08/23 09:58 Anion Gap 7 mmol/L 08/08/23 09:58 BUN 18 mg/dL (9-20) 08/08/23 09:58 Creatinine 1.42 mg/dL (0.66-1.25) H 08/08/23 09:58 Est GFR (CKD-EPI)AfAm 54 (>60 ml/min/1.73 sqM) 08/08/23 09:58 Est GFR (CKD-EPI)NonAf 47 (>60 ml/min/1.73 sqM) 08/08/23 09:58 Glucose 100 mg/dL (74-99) H 08/08/23 09:58 Calcium 8.8 mg/dL (8.4-10.2) 08/08/23 09:58 Magnesium 2.1 mg/dL (1.6-2.3) 08/08/23 09:58 Total Bilirubin 1.5 mg/dL (0.2-1.3) H 08/08/23 09:58 AST 26 U/L (17-59) 08/08/23 09:58 ALT 20 U/L (4-49) 08/08/23 09:58 Alkaline Phosphatase 105 U/L (38-126) 08/08/23 09:58 Troponin I <0.012 ng/mL (0.000-0.034) 08/08/23 14:42 Total Protein 7.0 g/dL (6.3-8.2) 08/08/23 09:58 Albumin 3.5 g/dL (3.5-5.0) 08/08/23 09:58 Influenza Type A (PCR) Not Detected (Not Detectd) 08/08/23 09:58 Influenza Type B (PCR) Not Detected (Not Detectd) 08/08/23 09:58 RSV (PCR) Not Detected (Not Detectd) 08/08/23 09:58 SARS-CoV-2 (PCR) Not Detected (Not Detectd) 08/08/23 09:58 PT/INR, D-dimer PT 12.4 sec (10.0-12.5) 08/08/23 09:58 INR 1.2 (<1.2) H 08/08/23 09:58 D-Dimer 0.33 mg/L FEU (<0.60) 08/08/23 09:58 Abnormal lab findings: Abnormal Labs 08/08/23 08/08/23 08/08/23 09:58 09:58 09:58 Plt Count 146 L Lymphocytes # 0.9 L INR 1.2 H Chloride 108 H Creatinine 1.42 H Glucose 100 H Total Bilirubin 1.5 H Assessment and Plan Plan: Acute chest pain under investigation, likely atypical. Cardiac enzymes are ne gative. EKG showing normal sinus rhythm. Hemoptysis, nonspecific, could be related to recent cough following a URI as the patient is also taking double antiplatelet agents. Chest x-ray is clear. No indication of any pneumonia. No lung masses. Coronary artery disease with previous coronary intervention and stenting of the LAD with 2 drug-eluting stents back in July 2023 History of congestion heart failure improved postcardiac catheterization most recent echocardiogram showed a normal ejection fraction without any significant valvular abnormalities Dementia BPH with episodes of urinary tract infections Chronic stage III kidney disease Hyperlipidemia Plan Continue aspirin and Plavix Completed cardiac workup regarding the chest pain which seems to be atypical at this point Repeat chest x-ray in the morning Respiratory status is stable. Lungs are clear. The patient is non-smoker. No need for any further pulmonary workup with repeat chest x-ray remains unchanged. Patient was reassured. Will follow.
[2023-08-08] MEDS: FAMOTIDINE 20 MG/2 ML VIAL IV SCH (22:59)
[2023-08-09] MEDS: METOPROLOL TARTRATE 25 MG TAB PO SCH (02:36)
[2023-08-09 07:59] VITALS: BP 155/83; PULSE 64; RESP 16; TEMP 97.5
--- NOTE | 2023-08-09 08:17 | XR ---
EXAMINATION TYPE: XR chest 1V DATE OF EXAM: 08/09/2023 HISTORY: Shortness of breath. COMPARISON: 08/08/2023 TECHNIQUE: Single view of the chest is submitted. FINDINGS: Demonstrated are scattered senescent parenchymal change. There is no evidence for focal infiltrate. The heart is stable. Hilar and mediastinal structures are within normal limits. Degenerative changes are seen of the dorsal spine. IMPRESSION: 1. Chronic changes without evidence for acute pulmonary disease.
[2023-08-09] MEDS: ASPIRIN 81 MG PO SCH (09:14)
[2023-08-09] MEDS: TAMSULOSIN 0.4 MG CAP.ER.24H PO SCH (09:14)
[2023-08-09] MEDS: PANTOPRAZOLE 40 MG/10 ML VIAL IV SCH (09:14)
[2023-08-09] MEDS: FAMOTIDINE 20 MG/2 ML VIAL IV SCH (09:14)
[2023-08-09] MEDS: ISOSORBIDE MONONITRATE ER 30 MG TAB.ER.24H PO SCH (09:15)
[2023-08-09] MEDS: CLOPIDOGREL 75 MG TAB PO SCH (09:15)
[2023-08-09] MEDS: ATORVASTATIN 80 MG TAB PO SCH (09:15)
--- NOTE | 2023-08-09 11:27 | P.CRDCN ---
History of Present Illness Consult date: 08/09/23 History of present illness: I- . HPI: [This is a 78-year-old gentleman with a history of CAD previous stenting of LAD in July 2022. He has done well since then and usually sees Dr. Padron in the office. Yesterday he was doing some mowing of the lawn and had a coughi ng bout after that he had bruising on the right side of the chest and came into the hospital concerned. He also complained of having an episode of epistaxis after a coughing bout. He has no chest pain at this time there is tenderness on the right side of the sternum and more so on the rib related to coughing. His troponins and EKG are unremarkable. He was seen by pulmonology and no further workup is required regarding his hemoptysis. He is not a smoker and has no active lung disease. His pain in the chest seems very musculoskeletal. He is asymptomatic at this time. Troponins and EKGs are unremarkable physical exam is also unremarkable.. RELEVANT PAST MEDICAL HISTORY: CAD with stenting of LAD performed with Dr. Padron in July 2022, hypertension, hypercholesterolemia, benign prostatic hypertrophy. MEDICATIONS: Medications include Flomax metoprolol tartrate Imdur Plavix aspirin atorvastatin ALLERGIES: 14. REVIEW OF SYSTEMS:. PHYSICIAL EXAM: The patient appeared well nourished and normally developed. Vital signs as documented. Head exam is unremarkable. No scleral icterus or corneal arcus noted. Neck is without jugular venous distension, thyromegaly, or carotid bruits. Carotid upstrokes are brisk bilaterally. Lungs are clear to auscultation and percussion. Cardiac exam reveals the PMI to be normally sized and situated. Rhythm is regular. First and second heart sounds normal. Short systolic murmur is audible, there is tenderness under right fourth rib, rubs or gallops. Abdominal exam reveals normal bowel sounds, no masses, no organomegaly and no aortic enlargement. Extremities are nonedematous and both femoral and pedal pulses are normal.. IMPRESSION: 1. Atypical musculoskeletal chest pain. 2. CAD stable with previous LAD PCI. 3. Benign hypertension. 4. Hypercholesterolemia. 5.. RECOMMENDATIONS: Patient's presentation today appears to be very musculoskeletal no intervention is necessary advised to take a Tylenol and avoid doing any strenuous activity with the arm so that his ribs get addressed. Same medications upon discharge follow-up with Dr. Padron in 2 to 3 weeks. Discussed my thoughts in detail with the patient and his . Past Medical History Past Medical History: Coronary Artery Disease (CAD), Dementia, Memory Impairment, Myocardial Infarction ([place]), Prostate Disorder Additional Past Medical History / Comment(s): UTI in the past, cardiomyopathy Last Myocardial Infarction Date:: august 25 2022 History of Any Multi-Drug Resistant Organisms: None Reported Past Surgical History: Heart Catheterization With Stent Past Anesthesia/Blood Transfusion Reactions: No Reported Reaction Date of Last Stent Placement:: 08/26/2022 Past Psychological History: No Psychological Hx Reported Smoking Status: Never smoker Past Alcohol Use History: None Reported Past Drug Use History: None Reported - Past Family History Mother Family Medical History: Unable to Obtain Brother(s) Family Medical History: Deep Vein Thrombosis (DVT), Myocardial Infarction ([place]), Renal Disease Medications and Allergies Home Medications Medication Instructions Recorded Confirmed Type Tamsulosin [Flomax] 0.4 mg PO DAILY 08/25/22 08/08/23 History Aspirin 81 mg PO DAILY tab 08/28/22 08/08/23 Rx Atorvastatin [Lipitor] 80 mg PO DAILY #30 tab 08/28/22 08/08/23 Rx Clopidogrel [Plavix] 75 mg PO DAILY #30 tab 08/28/22 08/08/23 Rx Isosorbide Mononitrate ER [Imdur] 30 mg PO DAILY #30 tab 08/28/22 08/08/23 Rx Metoprolol Tartrate [Lopressor] 25 mg PO BID #60 tab 08/28/22 08/08/23 Rx Amoxicillin 500 mg PO TID 08/08/23 08/08/23 History Vibegron [Gemtesa] 75 mg PO DAILY 08/08/23 08/08/23 History Allergies Allergy/AdvReac Type Severity Reaction Status Date / Time codeine Allergy Unknown Verified 08/08/23 09:26 Physical Exam Vitals: Vital Signs Temp Pulse Pulse Resp BP BP Pulse Ox 08/09/23 08:00 16 08/09/23 07:18 97.5 F L 64 16 155/83 97 08/09/23 02:24 98.0 F 71 15 156/70 99 08/09/23 02:00 55 L 08/08/23 22:30 56 L 08/08/23 21:56 98.0 F 56 L 15 145/86 99 08/08/23 21:14 58 L 18 133/82 97 08/08/23 16:00 58 L 18 96/61 97 08/08/23 15:00 58 L 18 102/76 96 08/08/23 14:00 62 16 110/72 96 08/08/23 13:00 60 16 108/73 98 08/08/23 12:00 62 18 113/74 93 L Intake and Output 08/08/23 08/09/23 08/09/23 22:59 06:59 14:59 Other: Voiding Method Toilet # Voids 3 2 1 Weight 77.111 kg Results 08/08/23 09:58 08/08/23 09:58 Cardiac Enzymes 08/08/23 08/08/23 Range/Units 14:42 17:46 Troponin I <0.012 <0.012 (0.000-0.034) ng/mL Current Medications Generic Name Dose Route Start Last Admin Trade Name Freq PRN Reason Stop Dose Admin Acetaminophen 650 mg 08/08/23 12:25 Acetaminophen Tab 325 Mg Tab PO Q6HR PRN Mild Pain or Fever > 100.5 Hydrocodone Bitart/Acetaminophen 1 each 08/08/23 12:25 Hydrocodone/Apap 5-325mg 1 Each Tab PO Q4HR PRN Moderate Pain (Scale 4 to 6) Aspirin 81 mg 08/09/23 09:00 08/09/23 09:14 Aspirin 81 Mg PO 81 mg DAILY JENSEN Administration Atorvastatin Calcium 80 mg 08/09/23 09:00 08/09/23 09:15 Atorvastatin 80 Mg Tab PO 80 mg DAILY JNESEN Administration Clopidogrel Bisulfate 75 mg 08/09/23 09:00 08/09/23 09:15 Clopidogrel 75 Mg Tab PO 75 mg DAILY JENSEN Administration Famotidine 20 mg 08/09/23 09:00 08/09/23 09:14 Famotidine 20 Mg/2 Ml Vial IV 20 mg DAILY JENSEN Administration Isosorbide Mononitrate 30 mg 08/09/23 09:00 08/09/23 09:15 Isosorbide Mononitrate Er 30 Mg Tab.Er.24h PO 30 mg DAILY JENSEN Administration Metoprolol Tartrate 25 mg 08/08/23 21:00 08/09/23 09:15 Metoprolol Tartrate 25 Mg Tab PO 25 mg BID JENSEN Administration Morphine Sulfate 4 mg 08/08/23 12:25 Morphine Sulfate 4 Mg/Ml Syringe IV Q4HR PRN Severe Pain (Scale 7 to 10) Naloxone HCl 0.2 mg 08/08/23 12:25 Naloxone 0.4 Mg/Ml 1 Ml Vial IV Q2M PRN Opioid Reversal Ondansetron HCl 4 mg 08/08/23 12:25 Ondansetron 4 Mg/2 Ml Vial IVP Q8HR PRN Nausea And Vomiting Pantoprazole Sodium 40 mg 08/09/23 09:00 08/09/23 09:14 Pantoprazole 40 Mg/10 Ml Vial IV 40 mg DAILY JENSEN Administration Tamsulosin HCl 0.4 mg 08/09/23 09:00 08/09/23 09:14 Tamsulosin 0.4 Mg Cap.Er.24h PO 0.4 mg DAILY JENSEN Administration Intake and Output 08/08/23 08/09/23 08/09/23 22:59 06:59 14:59 Other: Voiding Method Toilet # Voids 3 2 1 Weight 77.111 kg 08/08/23 09:58 08/08/23 09:58
== END 2023-08-09 12:19 | disposition home or self-care (01) ==
LOC: EC 09:14 → 6NMEDSUR 13:25
PROVIDERS: ADMIT Internal Medicine; ATTEND Internal Medicine
DX: R07.89 Other chest pain (principal); R04.2 Hemoptysis; I13.0 Hypertensive heart and chronic kidney disease with heart failure and stage 1 through stage 4 chronic kidney disease, or unspecified chronic kidney disease; N18.30 Chronic kidney disease, stage 3 unspecified; I25.10 Atherosclerotic heart disease of native coronary artery without angina pectoris; J06.9 Acute upper respiratory infection, unspecified; R04.0 Epistaxis; N40.1 Benign prostatic hyperplasia with lower urinary tract symptoms; R39.15 Urgency of urination; E78.00 Pure hypercholesterolemia, unspecified; F03.90 Unspecified dementia, unspecified severity, without behavioral disturbance, psychotic disturbance, mood disturbance, and anxiety; Z11.52 Encounter for screening for COVID-19; Z11.59 Encounter for screening for other viral diseases; Z79.82 Long term (current) use of aspirin; Z79.02 Long term (current) use of antithrombotics/antiplatelets; Z79.899 Other long term (current) drug therapy; Z88.5 Allergy status to narcotic agent; Z95.5 Presence of coronary angioplasty implant and graft; Z87.440 Personal history of urinary (tract) infections
CPT/HCPCS: 96376; 96374; 96375; 99284; 36415; 85379; 80053; 83735; 84484; 85025; 85610; 85730; 87636; 71045; 71046; G0378 ×2; J3490 ×2; C9113

== ENCOUNTER 2024-08-26 05:36 | Emergency (ER) | payer MEDICARE, OTHER ==
[2024-08-26 06:32] LABS: Appearance,Urine Clear (Clear); Bilirubin,Urine Negative (Negative); Blood,Urine Negative (Negative); Color,Urine Colorless; Glucose,Urine (UA) Negative (Negative); Ketones,Urine Negative (Negative); Leukocyte Esterase,Urine Negative (Negative); Nitrite,Urine Negative (Negative); PH, Urine 6.5 (5.0-8.0); Protein,Urine Negative (Negative); Specific Gravity,Urine 1.007 (1.001-1.035); Urobilinogen,Urine <2.0 mg/dL (<2.0)
[2024-08-26 06:34] LABS: Basophils # (A) 0.02 10*3/uL (0.00-0.10); Basophils % (A) 0.4 %; Eosinophils # (A) 0.19 10*3/uL (0.04-0.35); Eosinophils % (A) 3.7 %; HCT 40.9 % (39.6-50.0); HGB 14.1 g/dL (13.0-17.0); Immature Platelet Fraction 4.8 % (1.1-6.1); Lymphocytes # (A) 1.02 10*3/uL (0.90-5.00); Lymphocytes % (A) 20.1 %; MCH 32.4 pg (27.0-32.0); MCHC 34.5 g/dL (32.0-37.0); Mean Platelet Volume 10.7 fL (9.5-12.2); Monocytes # (A) 0.51 10*3/uL (0.20-1.00); Neutrophils # (A) 3.32 10*3/uL (1.80-7.70); Neutrophils % (A) 65.4 %; Platelet Count 113 10*3/uL (140-440); RBC 4.35 10*6/uL (4.40-5.60); RDW 12.3 % (11.5-14.5); WBC 5.08 10*3/uL (4.50-10.00)
[2024-08-26 06:41] LABS: ALT 12 U/L (4-49); AST 21 U/L (17-59); African American GFR (CKD) 52 (>60 ml/min/1.73 sqM); Albumin 3.6 g/dL (3.5-5.0); Alkaline Phosphatase 85 U/L (38-126); Anion Gap 7 mmol/L; Blood Urea Nitrogen 17 mg/dL (9-20); Calcium 8.7 mg/dL (8.4-10.2); Carbon Dioxide 24 mmol/L (22-30); Chloride 101 mmol/L (98-107); Creatine Kinase 41 U/L (55-170); Glucose 90 mg/dL (74-99); Non-African American GFR(CKD) 45 (>60 ml/min/1.73 sqM); Potassium 4.5 mmol/L (3.5-5.1); Sodium 132 mmol/L (137-145); Total Bilirubin 1.3 mg/dL (0.2-1.3); Total Protein 7.1 g/dL (6.3-8.2)
--- NOTE | 2024-08-26 06:56 | CT ---
EXAMINATION TYPE: CT brain wo con DATE OF EXAM: 08/26/2024 COMPARISON: NONE CLINICAL INDICATION: Male, 79 years old with history of fall injury, Fall, injury; headache. TECHNIQUE: CT scan of the head is performed without contrast. CT DLP: 1097.8 mGycm. Automated Exposure Control for Dose Reduction was Utilized. FINDINGS: There is no acute intracranial hemorrhage or midline shift identified. There is moderate diffuse ventricular and sulcal prominence consistent with diffuse age-related cerebral atrophy. Ther e is moderate low-attenuation in the deep and periventricular white matter consistent with chronic sm all vessel ischemic change in patient of this age. The calvarium is intact. The globes are intact bi laterally. There is near complete opacification of the right maxillary sinus with central hyperdense material and thickened sclerotic jhaveri consistent with long-standing sinus disease at this level . Th ere is prominent soft tissue density consistent with cerumen in the deep right external auditory andrew l. IMPRESSION: No acute intracranial hemorrhage or midline shift. [facility], , 08/26/2024 6:54 AM
--- NOTE | 2024-08-26 06:59 | ED ---
Fall HPI - General Chief Complaint: Fall Stated Complaint: fall Time Seen by Provider: 08/26/24 05:37 Source: patient, EMS Mode of arrival: EMS - History of Present Illness Initial Comments: This patient is an 79-year-old man brought by ambulance to have evaluation for a suspected fall. The patient's family had checked him and found that he was lying next to the bed and they presumed he had fallen. The patient does state that he probably fell. He denies having any pain or injury. No headache, neck, chest, back or abdominal pain. No pain to the extremities. The patient states that he otherwise feels well, no dyspnea or cough. No vomiting or change in bowel movements or urination. MD Complaint: fall -: unknown Fall From: out of bed When Fall Occurred: unsure Fall Witnessed: no Place Fall Occurred: home Loss of Consciousness: none Prolonged Down Time?: no Symptoms Prior to Fall: none Severity scale (1-10): 0 Associated Symptoms: denies - Related Data Home Medications Medication Instructions Recorded Confirmed Tamsulosin [Flomax] 0.4 mg PO DAILY 08/25/22 08/28/24 Aspirin EC [Ecotrin Low Dose] 81 mg PO DAILY 08/28/24 08/28/24 Atorvastatin [Lipitor] 40 mg PO DAILY 08/28/24 08/28/24 Citalopram Hydrobromide [CeleXA] 20 mg PO DAILY 08/28/24 08/28/24 Divalproex Sodium [Depakote] 500 mg PO BID 08/28/24 08/28/24 Previous Rx's Medication Instructions Recorded Metoprolol Tartrate [Lopressor] 25 mg PO BID #60 tab 08/28/22 Acetaminophen Tab [Tylenol] 650 mg PO Q6HR PRN tab 09/01/24 Heparin Sodium,Porcine (1 ml) 5,000 unit SQ Q12HR each 09/01/24 [Heparin Sodium] Pantoprazole [Protonix] 40 mg PO AC-[id number] tab 09/01/24 QUEtiapine [SEROquel] 25 mg PO DAILY tab 09/01/24 traZODone HCL [Desyrel] 50 mg PO HS PRN tab 09/01/24 Allergies Allergy/AdvReac Type Severity Reaction Status Date / Time codeine Allergy Unknown Verified 08/28/24 12:55 Review of Systems ROS Statement: Those systems with pertinent positive or pertinent negative responses have been documented in the HPI. ROS Other: All systems not noted in ROS Statement are negative. Constitutional: Reports: weakness. Denies: fever, chills Eyes: Denies: vision change Respiratory: Denies: cough, dyspnea Cardiovascular: Denies: chest pain, palpitations, edema Gastrointestinal: Denies: abdominal pain, nausea, vomiting, diarrhea Genitourinary: Denies: dysuria, hematuria Musculoskeletal: Denies: back pain Skin: Denies: rash Neurological: Denies: headache, weakness, confusion Past Medical History Past Medical History: Coronary Artery Disease (CAD), Dementia, Memory Impairment, Myocardial Infarction (OR), Prostate Disorder Additional Past Medical History / Comment(s): UTI in the past, cardiomyopathy Last Myocardial Infarction Date:: august 25 2022 History of Any Multi-Drug Resistant Organisms: None Reported Past Surgical History: Heart Catheterization With Stent Past Anesthesia/Blood Transfusion Reactions: No Reported Reaction Date of Last Stent Placement:: 08/26/2022 Past Psychological History: No Psychological Hx Reported Smoking Status: Never smoker Past Alcohol Use History: None Reported Past Drug Use History: None Reported - Past Family History Mother Family Medical History: Unable to Obtain Brother(s) Family Medical History: Deep Vein Thrombosis (DVT), Myocardial Infarction (OR), Renal Disease General Exam Limitations: no limitations General appearance: alert, in no apparent distress Head exam: Present: atraumatic, normocephalic Eye exam: Present: normal appearance. Absent: scleral icterus, conjunctival injection ENT exam: Present: normal oropharynx Neck exam: Present: normal inspection Respiratory exam: Present: normal lung sounds bilaterally. Absent: respiratory distress, wheezes, rales, rhonchi, stridor, accessory muscle use Cardiovascular Exam: Present: regular rate, normal rhythm, normal heart sounds. Absent: systolic murmur, diastolic murmur, rubs, gallop GI/Abdominal exam: Present: soft. Absent: distended, tenderness, guarding, rebound, rigid, mass Extremities exam: Present: normal inspection, normal capillary refill. Absent: pedal edema, calf tenderness Back exam: Present: normal inspection. Absent: CVA tenderness (R), CVA tenderness (L) Neurological exam: Present: alert Skin exam: Present: warm, dry, intact, normal color. Absent: rash Course Vital Signs 08/26/24 08/26/24 08/26/24 05:38 06:21 07:21 Temperature 98.1 F Pulse Rate 56 L 57 L Respiratory 16 16 Rate Blood Pressure 172/98 152/88 167/109 O2 Sat by Pulse 97 98 Oximetry 08/26/24 08/26/24 08:33 09:15 Temperature 97.9 F Pulse Rate 70 Respiratory 18 Rate Blood Pressure 108/95 148/95 O2 Sat by Pulse 98 Oximetry Medical Decision Making - Medical Decision Making Was pt. sent in by a medical professional or institution (, PA, AUTO PARTS MANAGER, urgent care, hospital, or prison...) When possible be specific @ -[No] Did you speak to anyone other than the patient for history (EMS, parent, family, police, friend...)? What history was obtained from this source @ -[No] Did you review nursing and triage notes (agree or disagree)? Why? @ -[I reviewed and agree with nursing and triage notes] Were old charts reviewed (outside hosp., previous admission, EMS record, old EKG, old radiological studies, urgent care reports/EKG's, prison records)? Report findings @ -[No old charts were reviewed] Differential Diagnosis (chest pain, altered mental status, abdominal pain women, abdominal pain men, vaginal bleeding, weakness, fever, dyspnea, syncope, headache, dizziness, GI bleed, back pain, seizure, CVA, palpatations, mental health, musculoskeletal)? @ -[Differential Musculoskeletal Muscular strain, contusion, ligament sprain, fracture, arthritis, septic arthritis, bursitis, cellulitis, muscle spasm, nerve compression, DVT, arterial occlusion, herpes zoster, electrolyte abnormality, tumor.... This is not meant to be in all inclusive list EKG interpreted by me (3pts min.). @ -[As above] X-rays interpreted by me (1pt min.). @ -[None done] CT interpreted by me (1pt min.). @ -[The patient had CT scan of the brain that I interpreted as negative for acute bony injury, negative for acute intracranial hemorrhage, negative for mass effect or midline shift. U/S interpreted by me (1pt. min.). @ -[None done] What testing was considered but not performed or refused? (CT, X-rays, U/S, labs)? Why? @ -[None] What meds were considered but not given or refused? Why? @ -[None] Did you discuss the management of the patient with other professionals (professionals i.e. , PA, AUTO PARTS MANAGER, lab, RT, psych nurse, social work manager, band straightener, teacher, real estate loan officer, disease case manager rn)? Give summary @ -[No] Was smoking cessation discussed for >3mins.? @ -[No] Was critical care preformed (if so, how long)? @ -[No] Were there social determinants of health that impacted care today? How? (Homelessness, low income, unemployed, alcoholism, drug addiction, transportation, low edu. Level, literacy, decrease access to med. care, group home, rehab)? @ -[No] Was there de-escalation of care discussed even if they declined (Discuss DNR or withdrawal of care, Hospice)? DNR status @ -[No] What co-morbidities impacted this encounter? (DM, HTN, Smoking, COPD, CAD, Cancer, CVA, ARF, Chemo, Hep., AIDS, mental health diagnosis, sleep apnea, morbid obesity)? @ -[Hypertension Was patient admitted / discharged? Hospital course, mention meds given and route, prescriptions, significant lab abnormalities, going to OR and other pertinent info. @ -[hospital course] Undiagnosed new problem with uncertain prognosis? @ -[No] Drug Therapy requiring intensive monitoring for toxicity (Heparin, Nitro, Insulin, Cardizem)? @ -[No] Were any procedures done? @ -[No] Diagnosis/symptom? @ -[Acute fall Acute on chronic hypertension Acute, or Chronic, or Acute on Chronic? @ -[default] Uncomplicated (without systemic symptoms) or Complicated (systemic symptoms)? @ -Uncomplicated Side effects of treatment? @ -[No] Exacerbation, Progression, or Severe Exacerbation? @ -[No] Poses a threat to life or bodily function? How? (Chest pain, USA, OR, pneumonia, PE, COPD, DKA, ARF, appy, cholecystitis, CVA, Diverticulitis, Homicidal, Suicidal, threat to staff... and all critical care pts) @ -[No] All treatments are based on ideal body weight as in ED triage - Lab Data Result diagrams: 08/26/24 06:09 08/26/24 06:09 Lab Results 08/26/24 08/26/24 08/26/24 Range/Units 06:09 06:09 06:09 WBC 5.08 (4.50-10.00) 10*3/uL RBC 4.35 L (4.40-5.60) 10*6/uL Hgb 14.1 (13.0-17.0) g/dL Hct 40.9 (39.6-50.0) % MCV 94.0 (80.0-97.0) fL MCH 32.4 H (27.0-32.0) pg MCHC 34.5 (32.0-37.0) g/dL Plt Count 113 L (140-440) 10*3/uL MPV 10.7 (9.5-12.2) fL Immature Gran % (Auto) 0.4 % Neutrophils % 65.4 % Lymphocytes % 20.1 % Monocytes % 10.0 % Eosinophils % 3.7 % Basophils % 0.4 % Immature Gran # 0.02 (0.00-0.04) 10*3/uL Neutrophils # 3.32 (1.80-7.70) 10*3/uL Lymphocytes # 1.02 (0.90-5.00) 10*3/uL Monocytes # 0.51 (0.20-1.00) 10*3/uL Eosinophils # 0.19 (0.04-0.35) 10*3/uL Basophils # 0.02 (0.00-0.10) 10*3/uL Immature Plt Fraction 4.8 (1.1-6.1) % Sodium 132 L (137-145) mmol/L Potassium 4.5 (3.5-5.1) mmol/L Chloride 101 (98-107) mmol/L Carbon Dioxide 24 (22-30) mmol/L Anion Gap 7 mmol/L BUN 17 (9-20) mg/dL Creatinine 1.44 H (0.66-1.25) mg/dL Est GFR (CKD-EPI)AfAm 52 (>60 ml/min/1.73 sqM) Est GFR (CKD-EPI)NonAf 45 (>60 ml/min/1.73 sqM) Glucose 90 (74-99) mg/dL Plasma Lactic Acid Sammy (0.7-2.0) mmol/L Calcium 8.7 (8.4-10.2) mg/dL Total Bilirubin 1.3 (0.2-1.3) mg/dL AST 21 (17-59) U/L ALT 12 (4-49) U/L Alkaline Phosphatase 85 (38-126) U/L Creatine Kinase 41 L (55-170) U/L Troponin I (0.000-0.034) ng/mL Total Protein 7.1 (6.3-8.2) g/dL Albumin 3.6 (3.5-5.0) g/dL Urine Color Colorless Urine Appearance Clear (Clear) Urine pH 6.5 (5.0-8.0) Ur Specific [place] 1.007 (1.001-1.035) Urine Protein Negative (Negative) Urine Glucose (UA) Negative (Negative) Urine Ketones Negative (Negative) Urine Blood Negative (Negative) Urine Nitrite Negative (Negative) Urine Bilirubin Negative (Negative) Urine Urobilinogen <2.0 (<2.0) mg/dL Ur Leukocyte Esterase Negative (Negative) 08/26/24 08/26/24 Range/Units 06:09 06:09 WBC (4.50-10.00) 10*3/uL RBC (4.40-5.60) 10*6/uL Hgb (13.0-17.0) g/dL Hct (39.6-50.0) % MCV (80.0-97.0) fL MCH (27.0-32.0) pg MCHC (32.0-37.0) g/dL Plt Count (140-440) 10*3/uL MPV (9.5-12.2) fL Immature Gran % (Auto) % Neutrophils % % Lymphocytes % % Monocytes % % Eosinophils % % Basophils % % Immature Gran # (0.00-0.04) 10*3/uL Neutrophils # (1.80-7.70) 10*3/uL Lymphocytes # (0.90-5.00) 10*3/uL Monocytes # (0.20-1.00) 10*3/uL Eosinophils # (0.04-0.35) 10*3/uL Basophils # (0.00-0.10) 10*3/uL Immature Plt Fraction (1.1-6.1) % Sodium (137-145) mmol/L Potassium (3.5-5.1) mmol/L Chloride (98-107) mmol/L Carbon Dioxide (22-30) mmol/L Anion Gap mmol/L BUN (9-20) mg/dL Creatinine (0.66-1.25) mg/dL Est GFR (CKD-EPI)AfAm (>60 ml/min/1.73 sqM) Est GFR (CKD-EPI)NonAf (>60 ml/min/1.73 sqM) Glucose (74-99) mg/dL Plasma Lactic Acid Sammy 1.1 (0.7-2.0) mmol/L Calcium (8.4-10.2) mg/dL Total Bilirubin (0.2-1.3) mg/dL AST (17-59) U/L ALT (4-49) U/L Alkaline Phosphatase (38-126) U/L Creatine Kinase (55-170) U/L Troponin I <0.012 (0.000-0.034) ng/mL Total Protein (6.3-8.2) g/dL Albumin (3.5-5.0) g/dL Urine Color Urine Appearance (Clear) Urine pH (5.0-8.0) Ur Specific [place] (1.001-1.035) Urine Protein (Negative) Urine Glucose (UA) (Negative) Urine Ketones (Negative) Urine Blood (Negative) Urine Nitrite (Negative) Urine Bilirubin (Negative) Urine Urobilinogen (<2.0) mg/dL Ur Leukocyte Esterase (Negative) - EKG Data EKG shows normal: sinus rhythm, axis (Normal), intervals ( normal), QRS complexes (Normal), ST-T waves (Normal) Rate: bradycardia (55 bpm) Disposition Clinical Impression: Fall, Hypertension Disposition: HOME SELF-CARE Condition: Good Instructions (If sedation given, give patient instructions): Fall Prevention for Older Adults (ED), Hypertension (ED) Is patient prescribed a controlled substance at d/c from ED?: No Referrals: Sergio Johnson DO [Primary Care Provider] - 1-2 days
[2024-08-26] MEDS: lisinopriL 5 MG TAB PO STA (07:58)
[2024-08-26 09:16] VITALS: BP 148/95; PULSE 70; RESP 18; TEMP 97.9
== END 2024-08-26 09:18 | disposition home or self-care (01) ==
LOC: EC 05:36
DX: Z04.3 Encounter for examination and observation following other accident (principal); I10 Essential (primary) hypertension; R00.1 Bradycardia, unspecified; Z88.5 Allergy status to narcotic agent
CPT/HCPCS: 36415; 51798; 70450; 80053; 81003; 82550; 83605; 84484; 85025; 93005; 99284

== ENCOUNTER 2024-08-28 12:13 | Inpatient (IN) | payer MEDICARE, OTHER ==
--- NOTE | 2024-08-28 13:07 | ED ---
General Adult HPI - General Chief complaint: Weakness Stated complaint: weakness Time Seen by Provider: 08/28/24 13:06 Source: patient, family (daughter), RN notes reviewed, old records reviewed Mode of arrival: wheelchair Limitations: altered mental status - History of Present Illness Initial comments: 79-year-old male with a past medical history significant for dementia presented the ER for evaluation of weakness. Daughter is providing majority of HPI. She reports about a week ago patient was diagnosed with a UTI by PCP and was treated with antibiotics. She states throughout the week patient has had progressive worsening weakness until today when patient was unable to ambulate throughout the home as normal. Patient does live at home with his but daughter is concerned she cannot take care of him given his current state. She states p atient would walk up to a mile a day with his until recently. Patient did have a fall on 08 26 24 and was seen here for evaluation. Patient was ultimately discharged home. Daughter also reports intermittent bilateral lower extremity edema over the past week. Patient is not on a diuretic and daughter denies history of CHF. reports patient has had a cough which appears to be worse at night. Patient denies any shortness of breath, chest pain, fevers, chills, abdominal pain or other complaints at this time. Per daughter, patient was sent by PCP for further evaluation of this lower extremity edema along with possible rehab and/or long-term care facility placement. - Related Data Home Medications Medication Instructions Recorded Confirmed Tamsulosin [Flomax] 0.4 mg PO DAILY 08/25/22 08/28/24 Vibegron [Gemtesa] 75 mg PO DAILY 08/08/23 08/28/24 Aspirin EC [Ecotrin Low Dose] 81 mg PO DAILY 08/28/24 08/28/24 Atorvastatin [Lipitor] 40 mg PO DAILY 08/28/24 08/28/24 Cephalexin [Keflex] 500 mg PO TID 08/28/24 08/28/24 Citalopram Hydrobromide [CeleXA] 20 mg PO DAILY 08/28/24 08/28/24 Divalproex Sodium [Depakote] 500 mg PO BID 08/28/24 08/28/24 Famotidine [Pepcid] See Taper PO DIRECTED 08/28/24 08/28/24 clonazePAM 0.5 - 1 mg PO DAILY PRN 08/28/24 08/28/24 Previous Rx's Medication Instructions Recorded Metoprolol Tartrate [Lopressor] 25 mg PO BID #60 tab 08/28/22 Allergies Allergy/AdvReac Type Severity Reaction Status Date / Time codeine Allergy Unknown Verified 08/28/24 12:55 Review of Systems ROS Statement: Those systems with pertinent positive or pertinent negative responses have been documented in the HPI. ROS Other: All systems not noted in ROS Statement are negative. Past Medical History Past Medical History: Coronary Artery Disease (CAD), Dementia, Memory Impairment, Myocardial Infarction (ID), Prostate Disorder Additional Past Medical History / Comment(s): UTI in the past, cardiomyopathy Last Myocardial Infarction Date:: august 25 2022 History of Any Multi-Drug Resistant Organisms: None Reported Past Surgical History: Heart Catheterization With Stent Past Anesthesia/Blood Transfusion Reactions: No Reported Reaction Date of Last Stent Placement:: 08/26/2022 Past Psychological History: No Psychological Hx Reported Smoking Status: Never smoker Past Alcohol Use History: None Reported Past Drug Use History: None Reported - Past Family History Mother Family Medical History: Unable to Obtain Brother(s) Family Medical History: Deep Vein Thrombosis (DVT), Myocardial Infarction (ID), Renal Disease General Exam Limitations: altered mental status General appearance: alert, in no apparent distress Head exam: Present: atraumatic, normocephalic, normal inspection Eye exam: Present: normal appearance, PERRL, EOMI. Absent: scleral icterus, conjunctival injection, periorbital swelling Pupils: Present: normal accommodation ENT exam: Present: normal exam, normal oropharynx, mucous membranes moist Neck exam: Present: normal inspection. Absent: tenderness, meningismus, lym phadenopathy Respiratory exam: Present: normal lung sounds bilaterally. Absent: respiratory distress, wheezes, rales, rhonchi, stridor Cardiovascular Exam: Present: regular rate, normal rhythm, normal heart sounds. Absent: systolic murmur, diastolic murmur, rubs, gallop, clicks GI/Abdominal exam: Present: soft, normal bowel sounds. Absent: distended, tenderness, guarding, rebound, rigid Extremities exam: Present: normal inspection, full ROM, normal capillary refill. Absent: tenderness, pedal edema, joint swelling, calf tenderness Neurological exam: Present: alert, altered (AxO x1), CN II-XII intact, other Skin exam: Present: warm, dry, intact, normal color. Absent: rash Course Vital Signs 08/28/24 12:20 Temperature 97.5 F L Pulse Rate 56 L Respiratory 20 Rate Blood Pressure 133/80 O2 Sat by Pulse 96 Oximetry - Reevaluation(s) Reevaluation #1: 08/28/24 15:00 [facility] EKG Findings - EKG Comments: EKG Findings:: EKG taken at 12: 58 showing a sinus bradycardia. No ST segment elevations or depressions. No T wave inversions. Ventricular rate 52, NJ interval 150, QRS duration 92, QT/QTc 426/407. Medical Decision Making - Medical Decision Making Was pt. sent in by a medical professional or institution (, PA, RELOCATION SERVICES SPECIALIST, urgent care, hospital, or residential...) When possible be specific @ -Patient sent by PCP for further evaluation of bilateral lower extremity edema and weakness. Did you speak to anyone other than the patient for history (EMS, parent, family, police, friend...)? What history was obtained from this source @ -Patient's daughter and providing majority of HPI and past medical history. Did you review nursing and triage notes (agree or disagree)? Why? @ -I reviewed and agree with nursing and triage notes Were old charts reviewed (outside hosp., previous admission, EMS record, old EKG, old radiological studies, urgent care reports/EKG's, residential records)? Report findings @ -[Prior medical records Differential Diagnosis (chest pain, altered mental status, abdominal pain women, abdominal pain men, vaginal bleeding, weakness, fever, dyspnea, syncope, headache, dizziness, GI bleed, back pain, seizure, CVA, palpatations, mental health, musculoskeletal)? @ -Differential Weakness:Hypoglycemia, shock, sepsis, hyponatremia, anemia, infection, ID, ETOH, adverse medicine reaction, overdose, stroke, this is not meant to be an all-inclusive list. EKG interpreted by me (3pts min.). @ -As above X-rays interpreted by me (1pt min.). @ -CXR interpreted by me negative for focal consolidations, pneumothorax or pleural effusions. CT interpreted by me (1pt min.). @ -CT brain showed no acute intracranial process. Chronic right maxillary sinusitis. Nonspecific white matter changes secondary to chronic small vessel ischemic disease. U/S interpreted by me (1pt. min.). @ -None done What testing was considered but not performed or refused? (CT, X-rays, U/S, labs)? Why? @ -None What meds were considered but not given or refused? Why? @ -None Did you discuss the management of the patient with other professionals (p rofessionals i.e. , PA, RELOCATION SERVICES SPECIALIST, lab, RT, psych nurse, public health social worker, applications analyst, teacher, parcel post officer, leather case finisher)? Give summary @ -Case discussed with ER leather case finisher, Jhoana. Who spoke with family regarding hospice care. They are open to obtaining more information. [facility] for further evaluation of debility and possible placement. Was smoking cessation discussed for >3mins.? @ -No Was critical care preformed (if so, how long)? @ -No Were there social determinants of health that impacted care today? How? (Homelessness, low income, unemployed, alcoholism, drug addiction, transportation, low edu. Level, literacy, decrease access to med. care, senior care, rehab)? @ -No Was there de-escalation of care discussed even if they declined (Discuss DNR or withdrawal of care, Hospice)? DNR status @ -Yes, family considering hospice care. Patient is a DNR. What co-morbidities impacted this encounter? (DM, HTN, Smoking, COPD, CAD, Cancer, CVA, ARF, Chemo, Hep., AIDS, mental health diagnosis, sleep apnea, morbid obesity)? @ -Dementia, CAD, ID, prostate disorder Was patient admitted / discharged? Hospital course, mention meds given and route, prescriptions, significant lab abnormalities, going to OR and other pert inent info. @ -Admitted. 79 year old male presenting to the ER for evaluation of weakness. Upon arrival vital signs acceptable limits. Patient in no signs of acute distress. Patient ANO x 1 baseline per family. Laboratory studies significant for hyponatremia 129. Creatinine mildly elevated 1.32 GFR 51. Troponin undetectable. BNP 393. Urinalysis without evidence of infection. Viral swabs negative. CT brain negative for acute intracranial process. Chest x-ray showing cardiomegaly with mild pulmonary vascular congestion. Patient received 500 mL IV fluid bolus in the ER. Patient was attempted to be ambulated in the ER by nursing staff. Per RN, patient was unable to ambulate 5 feet to the edge of the bed and he was unsteady on his feet. Admission was considered at that time for PT and OT consultation for debility and possible rehab placement. I discussed this case with [facility], Dr. Jimenez, who accepts admission. I also discussed case with leather case finisher, Jhoana, who discussed with family possibility of rehab placement. Patient's family was considering hospice care and they are agreeable to obtaining more information on hospice, they will be consulted by . Patient admitted in stable condition for further evaluation and treatment. Family agreeable. Case discussed with ED attending, Dr. Gannon. Undiagnosed new problem with uncertain prognosis? @ -No Drug Therapy requiring intensive monitoring for toxicity (Heparin, Nitro, Insulin, Cardizem)? @ -No Were any procedures done? @ -No Diagnosis/symptom? @ -Hyponatremia/debility Acute, or Chronic, or Acute on Chronic? @ -Acute Uncomplicated (without systemic symptoms) or Complicated (systemic symptoms)? @ -Complicated Side effects of treatment? @ -No Exacerbation, Progression, or Severe Exacerbation? @ -No Poses a threat to life or bodily function? How? (Chest pain, USA, ID, pneumonia, PE, COPD, DKA, ARF, appy, cholecystitis, CVA, Diverticulitis, Homicidal, Suicidal, threat to staff... and all critical care pts) @ -Yes - Lab Data Result diagrams: 08/28/24 13:00 08/28/24 13:00 Lab Results 08/28/24 08/28/24 08/28/24 Range/Units 13:00 13:00 13:00 WBC 4.28 L (4.50-10.00) 10*3/uL RBC 4.26 L (4.40-5.60) 10*6/uL Hgb 14.3 (13.0-17.0) g/dL Hct 39.2 L (39.6-50.0) % MCV 92.0 (80.0-97.0) fL MCH 33.6 H (27.0-32.0) pg MCHC 36.5 (32.0-37.0) g/dL Plt Count 117 L (140-440) 10*3/uL MPV 12.1 (9.5-12.2) fL Immature Gran % (Auto) 0.5 % Neutrophils % 62.6 % Lymphocytes % 21.7 % Monocytes % 12.4 % Eosinophils % 2.1 % Basophils % 0.7 % Immature Gran # 0.02 (0.00-0.04) 10*3/uL Neutrophils # 2.68 (1.80-7.70) 10*3/uL Lymphocytes # 0.93 (0.90-5.00) 10*3/uL Monocytes # 0.53 (0.20-1.00) 10*3/uL Eosinophils # 0.09 (0.04-0.35) 10*3/uL Basophils # 0.03 (0.00-0.10) 10*3/uL Immature Plt Fraction 5.5 (1.1-6.1) % Sodium 129 L (137-145) mmol/L Potassium 4.5 (3.5-5.1) mmol/L Chloride 100 (98-107) mmol/L Carbon Dioxide 22 (22-30) mmol/L Anion Gap 7 mmol/L BUN 19 (9-20) mg/dL Creatinine 1.32 H (0.66-1.25) mg/dL Est GFR (CKD-EPI)AfAm 58 (>60 ml/min/1.73 sqM) Est GFR (CKD-EPI)NonAf 51 (>60 ml/min/1.73 sqM) Glucose 90 (74-99) mg/dL Plasma Lactic Acid Sammy (0.7-2.0) mmol/L Calcium 9.0 (8.4-10.2) mg/dL Total Bilirubin 1.3 (0.2-1.3) mg/dL AST 18 (17-59) U/L ALT 11 (4-49) U/L Alkaline Phosphatase 68 (38-126) U/L Troponin I (0.000-0.034) ng/mL NT-Pro-B Natriuret Pep 393 pg/mL Total Protein 6.9 (6.3-8.2) g/dL Albumin 3.4 L (3.5-5.0) g/dL Urine Color Colorless Urine Appearance Clear (Clear) Urine pH 7.0 (5.0-8.0) Ur Specific [place] 1.012 (1.001-1.035) Urine Protein Negative (Negative) Urine Glucose (UA) Negative (Negative) Urine Ketones Negative (Negative) Urine Blood Negative (Negative) Urine Nitrite Negative (Negative) Urine Bilirubin Negative (Negative) Urine Urobilinogen <2.0 (<2.0) mg/dL Ur Leukocyte Esterase Negative (Negative) Influenza Type A (PCR) (Not Detectd) Influenza Type B (PCR) (Not Detectd) RSV (PCR) (Not Detectd) SARS-CoV-2 (PCR) (Not Detectd) 08/28/24 08/28/24 08/28/24 Range/Units 13:06 13:06 13:06 WBC (4.50-10.00) 10*3/uL RBC (4.40-5.60) 10*6/uL Hgb (13.0-17.0) g/dL Hct (39.6-50.0) % MCV (80.0-97.0) fL MCH (27.0-32.0) pg MCHC (32.0-37.0) g/dL Plt Count (140-440) 10*3/uL MPV (9.5-12.2) fL Immature Gran % (Auto) % Neutrophils % % Lymphocytes % % Monocytes % % Eosinophils % % Basophils % % Immature Gran # (0.00-0.04) 10*3/uL Neutrophils # (1.80-7.70) 10*3/uL Lymphocytes # (0.90-5.00) 10*3/uL Monocytes # (0.20-1.00) 10*3/uL Eosinophils # (0.04-0.35) 10*3/uL Basophils # (0.00-0.10) 10*3/uL Immature Plt Fraction (1.1-6.1) % Sodium (137-145) mmol/L Potassium (3.5-5.1) mmol/L Chloride (98-107) mmol/L Carbon Dioxide (22-30) mmol/L Anion Gap mmol/L BUN (9-20) mg/dL Creatinine (0.66-1.25) mg/dL Est GFR (CKD-EPI)AfAm (>60 ml/min/1.73 sqM) Est GFR (CKD-EPI)NonAf (>60 ml/min/1.73 sqM) Glucose (74-99) mg/dL Plasma Lactic Acid Sammy 1.0 (0.7-2.0) mmol/L Calcium (8.4-10.2) mg/dL Total Bilirubin (0.2-1.3) mg/dL AST (17-59) U/L ALT (4-49) U/L Alkaline Phosphatase (38-126) U/L Troponin I <0.012 (0.000-0.034) ng/mL NT-Pro-B Natriuret Pep pg/mL Total Protein (6.3-8.2) g/dL Albumin (3.5-5.0) g/dL Urine Color Urine Appearance (Clear) Urine pH (5.0-8.0) Ur Specific [place] (1.001-1.035) Urine Protein (Negative) Urine Glucose (UA) (Negative) Urine Ketones (Negative) Urine Blood (Negative) Urine Nitrite (Negative) Urine Bilirubin (Negative) Urine Urobilinogen (<2.0) mg/dL Ur Leukocyte Esterase (Negative) Influenza Type A (PCR) Not Detected (Not Detectd) Influenza Type B (PCR) Not Detected (Not Detectd) RSV (PCR) Not Detected (Not Detectd) SARS-CoV-2 (PCR) Not Detected (Not Detectd) - Radiology Data Radiology results: report reviewed, image reviewed Disposition Clinical Impression: Debility, Hyponatremia Disposition: ADMITTED IP TO THIS [facility] Condition: Stable Referrals: Sergio Johnson DO [Primary Care Provider] - 1-2 days Time of Disposition: 15:00
[2024-08-28 13:21] LABS: Basophils # (A) 0.03 10*3/uL (0.00-0.10); Basophils % (A) 0.7 %; Eosinophils # (A) 0.09 10*3/uL (0.04-0.35); Eosinophils % (A) 2.1 %; HCT 39.2 % (39.6-50.0); HGB 14.3 g/dL (13.0-17.0); Immature Platelet Fraction 5.5 % (1.1-6.1); Lymphocytes # (A) 0.93 10*3/uL (0.90-5.00); Lymphocytes % (A) 21.7 %; MCH 33.6 pg (27.0-32.0); MCHC 36.5 g/dL (32.0-37.0); Mean Platelet Volume 12.1 fL (9.5-12.2); Monocytes # (A) 0.53 10*3/uL (0.20-1.00); Monocytes % (A) 12.4 %; Neutrophils # (A) 2.68 10*3/uL (1.80-7.70); Neutrophils % (A) 62.6 %; Platelet Count 117 10*3/uL (140-440); RBC 4.26 10*6/uL (4.40-5.60); RDW 12.4 % (11.5-14.5); WBC 4.28 10*3/uL (4.50-10.00)
[2024-08-28 13:35] LABS: ALT 11 U/L (4-49); AST 18 U/L (17-59); African American GFR (CKD) 58 (>60 ml/min/1.73 sqM); Albumin 3.4 g/dL (3.5-5.0); Alkaline Phosphatase 68 U/L (38-126); Anion Gap 7 mmol/L; Appearance,Urine Clear (Clear); Bilirubin,Urine Negative (Negative); Blood Urea Nitrogen 19 mg/dL (9-20); Blood,Urine Negative (Negative); Carbon Dioxide 22 mmol/L (22-30); Chloride 100 mmol/L (98-107); Color,Urine Colorless; Glucose 90 mg/dL (74-99); Glucose,Urine (UA) Negative (Negative); Ketones,Urine Negative (Negative); Leukocyte Esterase,Urine Negative (Negative); Nitrite,Urine Negative (Negative); Non-African American GFR(CKD) 51 (>60 ml/min/1.73 sqM); Potassium 4.5 mmol/L (3.5-5.1); Protein,Urine Negative (Negative); Sodium 129 mmol/L (137-145); Specific Gravity,Urine 1.012 (1.001-1.035); Total Bilirubin 1.3 mg/dL (0.2-1.3); Total Protein 6.9 g/dL (6.3-8.2); Urobilinogen,Urine <2.0 mg/dL (<2.0)
[2024-08-28 13:43] LABS: NT-Pro-B-Type Natriuretic Pept 393 pg/mL
[2024-08-28 13:53] LABS: Influenza A Not Detected (Not Detectd); Influenza B Not Detected (Not Detectd); RSV Not Detected (Not Detectd)
--- NOTE | 2024-08-28 14:08 | XR ---
EXAMINATION TYPE: XR chest 2V DATE OF EXAM: 08/28/2024 2:02 PM COMPARISON: 08/09/2023 CLINICAL INDICATION: Male, 79 years old with history of peripheral edema/weakness: Shortness of breat h TECHNIQUE: XR chest 2V views of the chest are obtained. FINDINGS: Scattered senescent parenchymal changes noted. Hyperinflation compatible with COPD. No evidence for infiltrate. No evidence for atelectasis. Cardiomegaly pulmonary venous congestion. Mild interstitial edema. Mediastinal structures are stable and grossly unremarkable. No evidence for hilar prominence. Degenerative changes dorsal spine. IMPRESSION: 1. Cardiomegaly pulmonary venous congestion. Mild interstitial edema. [facility], , 08/28/2024 2:06 PM
--- NOTE | 2024-08-28 14:19 | CT ---
EXAMINATION TYPE: CT brain wo con CT DLP: 1171.4 mGycm, Automated exposure control for dose reduction was used. DATE OF EXAM: 08/28/2024 2:06 PM COMPARISON: CT brain 08/26/2024. CLINICAL INDICATION:Male, 79 years old with history of AMS/weakness x 1 week, AMS/weakness x 1 week TECHNIQUE: Brain: Multiple axial CT images of the brain were obtained without IV contrast. . Coronal and sagitta l reformats reviewed. FINDINGS: Brain: Extra-axial spaces: No abnormal extra-axial fluid collections. Ventricular system: Dilatation in proportion to cerebral atrophy. Incidental septum pellucidum. Cerebral parenchyma: Cerebral atrophy. No acute intraparenchymal hemorrhage or mass effect. The christie -white junction is well differentiated. Scattered hypoattenuating areas are seen within the periventr icular white matter. Cerebellum: Unremarkable. Mass effect: No evidence of midline shift. Intracranial vasculature: unremarkable Soft tissues: Normal. Calvarium/osseous structures: No depressed skull fracture. Paranasal sinuses and mastoid air cells: The mastoid air cells are clear. Near complete opacification of the right maxillary sinus with hyperostosis and internal calcified debris. Minimal mucosal thicke alma delia of the anterior left ethmoid sinus. The remaining paranasal sinuses are clear. Cerumen within th e right external auditory canal. Visualized orbits: Orbital contents are intact. IMPRESSION: 1. No acute intracranial process. 2. Nonspecific white matter changes, likely secondary to chronic small vessel ischemic disease. 3. Chronic right maxillary sinusitis. [facility], , 08/28/2024 2:16 PM
[2024-08-28] MEDS ORDERED: NALOXONE 0.4 MG/ML 1 ML VIAL IV PRN (15:00)
[2024-08-28] MEDS ORDERED: ACETAMINOPHEN TAB 325 MG TAB PO PRN (15:00)
[2024-08-28] MEDS: SODIUM CHLORIDE 0.9% 500 ML 500 ML IV ONE (15:15)
[2024-08-28] MEDS: QUEtiapine 25 MG TAB PO SCH (17:39)
[2024-08-28] MEDS ORDERED: QUEtiapine 25 MG TAB PO SCH (21:00)
--- NOTE | 2024-08-28 22:13 | P.HPIM ---
History of Present Illness This is a pleasant 79 years old male with past medical history of multiple medical problems Was brought by the family because of his been falling lately more than usual and several times. Family and cannot take care of him. He cannot take of himself either. As per family he was recently treated for UTI. He has currently bilateral leg swelling. Patient himself looks he denies chest pain or dyspnea no other abdominal or ur inary complaints. No headache or dizziness. Family request physical and Occupational Therapy evaluation for possible rehab placement He is hemodynamically stable and afebrile, CBC is unremarkable. Sodium is low at 129 which will contribute to his presentation, Review of Systems Review of systems CONSTITUTIONAL: No fever, no malaise, no fatigue. HEENT: No recent visual problems or hearing problems. Denied any sore throat. CARDIOVASCULAR: No orthopnea, PND, no palpitations, no syncope. PULMONARY: No shortness of breath, no cough, no hemoptysis. GASTROINTESTINAL: No diarrhea, no nausea, no vomiting, no abdominal pain. Normoactive bowel sounds. NEUROLOGICAL: No headaches, no weakness, no numbness. HEMATOLOGICAL: Denies any bleeding or petechiae. GENITOURINARY: Denies any burning micturition, frequency, or urgency. MUSCULOSKELETAL/RHEUMATOLOGICAL: Denies any joint pain, swelling, or any muscle pain. ENDOCRINE: Denies any polyuria or polydipsia. Past Medical History Past Medical History: Coronary Artery Disease (CAD), Dementia, Memory Impairment, Myocardial Infarction (DC), Prostate Disorder Additional Past Medical History / Comment(s): UTI in the past, cardiomyopathy Last Myocardial Infarction Date:: august 25 2022 History of Any Multi-Drug Resistant Organisms: None Reported Past Surgical History: Heart Catheterization With Stent Past Anesthesia/Blood Transfusion Reactions: No Reported Reaction Date of Last Stent Placement:: 08/26/2022 Past Psychological History: No Psychological Hx Reported Smoking Status: Former smoker Past Alcohol Use History: None Reported Past Drug Use History: None Reported - Past Family History Mother Family Medical History: Unable to Obtain Brother(s) Family Medical History: Deep Vein Thrombosis (DVT), Myocardial Infarction (DC), Renal Disease Medications and Allergies Home Medications Medication Instructions Recorded Confirmed Type RX: Tamsulosin [Flomax] 0.4 mg PO DAILY 08/25/22 08/28/24 History RX: Metoprolol Tartrate [Lopressor] 25 mg PO BID #60 tab 08/28/22 08/28/24 Rx RX: Vibegron [Gemtesa] 75 mg PO DAILY 08/08/23 08/28/24 History Aspirin EC [Ecotrin Low Dose] 81 mg PO DAILY 08/28/24 08/28/24 History Cephalexin [Keflex] 500 mg PO TID 08/28/24 08/28/24 History Divalproex Sodium [Depakote] 500 mg PO BID 08/28/24 08/28/24 History Famotidine [Pepcid] See Taper PO DIRECTED 08/28/24 08/28/24 History RX: Atorvastatin [Lipitor] 40 mg PO DAILY 08/28/24 08/28/24 History RX: Citalopram Hydrobromide 20 mg PO DAILY 08/28/24 08/28/24 History [CeleXA] RX: clonazePAM 0.5 - 1 mg PO DAILY PRN 08/28/24 08/28/24 History Allergies Allergy/AdvReac Type Severity Reaction Status Date / Time codeine Allergy Unknown Verified 08/28/24 12:55 Physical Exam Vitals: Vital Signs Temp Pulse Pulse Resp BP BP Pulse Ox 08/28/24 19:25 97.9 F 52 L 16 110/74 93 L 08/28/24 18:05 98.6 F 56 L 17 132/76 95 08/28/24 18:03 64 20 142/89 97 08/28/24 17:11 61 20 136/87 97 08/28/24 12:20 97.5 F L 56 L 20 133/80 96 Intake and Output 08/28/24 08/28/24 08/28/24 06:59 14:59 22:59 Other: # Voids 1 Weight 90.718 kg 90.718 kg -GENERAL: The patient is alert and oriented x0, calm and follow commands, not in any acute distress. Well developed, well nourished. Has no insight HEENT: Pupils are round and equally reacting to light. EOMI. No scleral icterus. No conjunctival pallor. Normocephalic, atraumatic. No pharyngeal erythema. No thyromegaly. CARDIOVASCULAR: S1 and S2 present. No murmurs, rubs, or gallops. PULMONARY: Chest is clear to auscultation, no wheezing , no crackles. ABDOMEN: Soft, nontender, nondistended, normoactive bowel sounds. No palpable organomegaly. MUSCULOSKELETAL: No joint swelling or deformity. EXTREMITIES: No cyanosis, clubbing, or pedal edema. NEUROLOGICAL: Gross neurological examination did not reveal any focal deficits. SKIN: No rashes. no petechiae. Results CBC & Chem 7: 08/28/24 13:00 08/28/24 13:00 Labs: Abnormal Lab Results - Last 24 Hours (Table) 08/28/24 08/28/24 Range/Units 13:00 13:00 WBC 4.28 L (4.50-10.00) 10*3/uL RBC 4.26 L (4.40-5.60) 10*6/uL Hct 39.2 L (39.6-50.0) % MCH 33.6 H (27.0-32.0) pg Plt Count 117 L (140-440) 10*3/uL Sodium 129 L (137-145) mmol/L Creatinine 1.32 H (0.66-1.25) mg/dL Albumin 3.4 L (3.5-5.0) g/dL Assessment and Plan Assessment: weakness and debility, family need help taking care of him and placement Dementia Coronary artery disease BPH History of UTI Plan: physical therapy evaluation Supportive care Pain management, currently patient does not look in pain Care management consult DVT prophylaxis: Subcutaneous heparin GI prophylaxis: Protonix Prognosis guarded
[2024-08-29 11:41] LABS: Basophils # (A) 0.02 10*3/uL (0.00-0.10); Basophils % (A) 0.5 %; Eosinophils # (A) 0.11 10*3/uL (0.04-0.35); Eosinophils % (A) 2.5 %; HGB 14.9 g/dL (13.0-17.0); Immature Platelet Fraction 5.7 % (1.1-6.1); Lymphocytes # (A) 0.88 10*3/uL (0.90-5.00); Lymphocytes % (A) 20.2 %; MCH 32.5 pg (27.0-32.0); MCHC 34.7 g/dL (32.0-37.0); MCV 93.9 fL (80.0-97.0); Mean Platelet Volume 11.4 fL (9.5-12.2); Monocytes # (A) 0.43 10*3/uL (0.20-1.00); Monocytes % (A) 9.9 %; Neutrophils % (A) 66.7 %; Platelet Count 118 10*3/uL (140-440); RBC 4.58 10*6/uL (4.40-5.60); RDW 12.1 % (11.5-14.5); WBC 4.35 10*3/uL (4.50-10.00)
[2024-08-29 11:53] LABS: African American GFR (CKD) 60 (>60 ml/min/1.73 sqM); Anion Gap 7 mmol/L; Blood Urea Nitrogen 17 mg/dL (9-20); Calcium 9.1 mg/dL (8.4-10.2); Carbon Dioxide 26 mmol/L (22-30); Chloride 98 mmol/L (98-107); Glucose 95 mg/dL (74-99); Non-African American GFR(CKD) 52 (>60 ml/min/1.73 sqM); Potassium 4.5 mmol/L (3.5-5.1); Sodium 131 mmol/L (137-145)
[2024-08-29] MEDS: ASPIRIN 81 MG PO SCH (12:27)
[2024-08-29] MEDS: DIVALPROEX 500 MG TABLET.DR PO SCH (12:27)
[2024-08-29] MEDS: QUEtiapine 25 MG TAB PO STA (16:04)
[2024-08-29] MEDS: METOPROLOL TARTRATE 25 MG TAB PO SCH (21:04)
[2024-08-29] MEDS ORDERED: QUEtiapine 25 MG TAB PO PRN (23:20)
--- NOTE | 2024-08-29 23:26 | P.PN ---
Subjective This is a pleasant 79 years old male with past medical history of multiple medical problems Was brought by the family because of his been falling lately more than usual and several times. Family and cannot take care of him. He cannot take of himself either. As per family he was recently treated for UTI. He has currently bilateral leg swelling. Patient himself looks he denies chest pain or dyspnea no other abdominal or urinary complaints. No headache or dizziness. Family request physical and Occupational Therapy evaluation for possible rehab placement He is hemodynamically stable and afebrile, CBC is unremarkable. Sodium is low at 129 which will contribute to his presentation, 5/3 Family were at bedside patient was looking comfortable sitting up in chair. He slept well last night and family were very happy about that he was started on Seroquel 12.5 mg last night Through the day he required another dose. His sodium is improved to 131 today Will check EKG tomorrow Patient is still pending placement Objective - Vital Signs Vital signs: Vital Signs Temp 98.3 F 08/29/24 14:02 Pulse 63 08/29/24 14:02 Resp 17 08/29/24 14:02 BP 168/91 08/29/24 14:02 Pulse Ox 96 08/29/24 14:02 FiO2 Intake & Output 08/29/24 08/29/24 08/30/24 06:59 18:59 06:59 Output Total 300 Balance -300 Output: Urine 300 Other: # Voids 1 2 # Bowel Movements 1 - Exam -GENERAL: The patient is awake and pleasantly confused, not in any acute distress. Well developed, well nourished. HEENT: Pupils are round and equally reacting to light. EOMI. No scleral icterus. No conjunctival pallor. Normocephalic, atraumatic. No pharyngeal erythema. No thyromegaly. CARDIOVASCULAR: S1 and S2 present. No murmurs, rubs, or gallops. PULMONARY: Chest is clear to auscultation, no wheezing , no crackles. ABDOMEN: Soft, nontender, nondistended, normoactive bowel sounds. No palpable organomegaly. MUSCULOSKELETAL: No joint swelling or deformity. EXTREMITIES: No cyanosis, clubbing, or pedal edema. NEUROLOGICAL: Gross neurological examination did not reveal any focal deficits. SKIN: No rashes. no petechiae. - Labs CBC & Chem 7: 08/29/24 11:19 08/29/24 11:19 Labs: Abnormal Lab Results - Last 24 Hours (Table) 08/29/24 08/29/24 Range/Units 11:19 11:19 WBC 4.35 L (4.50-10.00) 10*3/uL MCH 32.5 H (27.0-32.0) pg Plt Count 118 L (140-440) 10*3/uL Lymphocytes # 0.88 L (0.90-5.00) 10*3/uL Sodium 131 L (137-145) mmol/L Creatinine 1.28 H (0.66-1.25) mg/dL Assessment and Plan Assessment: weakness and debility, family need help taking care of him and placement Dementia Coronary artery disease BPH History of UTI Plan: physical therapy evaluation Supportive care Pain management, currently patient does not look in pain Care management consult DVT prophylaxis: Subcutaneous heparin GI prophylaxis: Protonix Prognosis guarded
[2024-08-30] MEDS: HEPARIN SODIUM,PORCINE 5,000 UNIT/ML 1 ML VIAL SQ SCH (08:33)
[2024-08-30] MEDS: ATORVASTATIN 40 MG TAB PO SCH (08:34)
[2024-08-30] MEDS: CITALOPRAM HYDROBROMIDE 20 MG TAB PO SCH (08:34)
[2024-08-30] MEDS: TAMSULOSIN 0.4 MG CAP.ER.24H PO SCH (08:34)
[2024-08-30 10:48] LABS: Basophils # (A) 0.04 X 10*3/uL (0.00-0.10); Basophils % (A) 0.8 %; Eosinophils # (A) 0.21 X 10*3/uL (0.04-0.35); Eosinophils % (A) 3.9 %; HCT 42.5 % (39.6-50.0); HGB 13.9 g/dL (13.0-17.0); Lymphocytes # (A) 1.12 X 10*3/uL (0.90-5.00); MCH 31.1 pg (27.0-32.0); MCHC 32.7 g/dL (32.0-37.0); MCV 95.1 FL (80.0-97.0); Mean Platelet Volume 12.1 FL (9.5-12.2); Monocytes # (A) 0.54 X 10*3/uL (0.20-1.00); Monocytes % (A) 10.1 %; NRBC Per 100 WBC 0 X 10*3/uL (0.00-0.01); Neutrophils # (A) 3.38 X 10*3/uL (1.80-7.70); Neutrophils % (A) 63.4 %; Platelet Count 126 X 10*3/uL (140-440); RBC 4.47 X 10*6/uL (4.40-5.60); RDW 12.6 % (11.5-14.5); WBC 5.33 X 10*3/uL (4.50-10.00)
[2024-08-30 11:03] LABS: Blood Urea Nitrogen 16.8 mg/dL (9.0-27.0); Calcium 8.5 mg/dL (8.7-10.3); Carbon Dioxide 22.4 mmol/L (21.6-31.8); Chloride 100 mmol/L (96-109); Glucose 84 mg/dL (70-110); Potassium 4.6 mmol/L (3.5-5.5); Sodium 132 mmol/L (135-145)
[2024-08-30] MEDS: QUEtiapine 25 MG TAB PO SCH (17:43)
--- NOTE | 2024-08-30 23:01 | P.PN ---
Subjective This is a pleasant 79 years old male with past medical history of multiple medical problems Was brought by the family because of his been falling lately more than usual and several times. Family and cannot take care of him. He cannot take of himself either. As per family he was recently treated for UTI. He has currently bilateral leg swelling. Patient himself looks he denies chest pain or dyspnea no other abdominal or urinary complaints. No headache or dizziness. Family request physical and Occupational Therapy evaluation for possible rehab placement He is hemodynamically stable and afebrile, CBC is unremarkable. Sodium is low at 129 which will contribute to his presentation, 08/29 Family were at bedside patient was looking comfortable sitting up in chair. He slept well last night and family were very happy about that he was started on Seroquel 12.5 mg last night Through the day he required another dose. His sodium is improved to 131 today Will check EKG tomorrow Patient is still pending placement 08/30 Patient remains confused but pleasant he got agitated at time and family requesting to increase his Seroquel. And they agreed to change Celexa to Zoloft to decrease the chances of drug interaction. He got agitated when he was to elope We checked also bladder scan which was not elevated Family request to increase Seroquel. Change Celexa to Zoloft to decrease drug- drug interaction Objective - Vital Signs Vital signs: Vital Signs Temp 98.1 F 08/30/24 07:32 Pulse 59 L 08/30/24 07:32 Resp 18 08/30/24 07:32 BP 173/89 08/30/24 07:32 Pulse Ox 93 L 08/30/24 07:32 FiO2 Intake & Output 08/29/24 08/30/24 08/30/24 18:59 06:59 18:59 Intake Total 540 Output Total 300 350 Balance -300 190 Intake: Oral 540 Output: Urine 300 350 Other: Voiding Method Urinal # Voids 2 # Bowel Movements 1 - Exam -GENERAL: The patient is awake and pleasantly confused, not in any acute distress. Well developed, well nourished. HEENT: Pupils are round and equally reacting to light. EOMI. No scleral icterus. No conjunctival pallor. Normocephalic, atraumatic. No pharyngeal erythema. No thyromegaly. CARDIOVASCULAR: S1 and S2 present. No murmurs, rubs, or gallops. PULMONARY: Chest is clear to auscultation, no wheezing , no crackles. ABDOMEN: Soft, nontender, nondistended, normoactive bowel sounds. No palpable organomegaly. MUSCULOSKELETAL: No joint swelling or deformity. EXTREMITIES: No cyanosis, clubbing, or pedal edema. NEUROLOGICAL: Gross neurological examination did not reveal any focal deficits. SKIN: No rashes. no petechiae. - Labs CBC & Chem 7: 08/30/24 03:46 08/30/24 03:46 Labs: Abnormal Lab Results - Last 24 Hours (Table) 08/29/24 08/29/24 08/30/24 Range/Units 11:19 11:19 03:46 WBC 4.35 L (4.50-10.00) 10*3/uL MCH 32.5 H (27.0-32.0) pg Plt Count 118 L 126 L (140-440) 10*3/uL Lymphocytes # 0.88 L (0.90-5.00) 10*3/uL Sodium 131 L (137-145) mmol/L Creatinine 1.28 H (0.66-1.25) mg/dL Assessment and Plan Assessment: weakness and debility, family need help taking care of him and placement Dementia Coronary artery disease BPH History of UTI Plan: Increase Seroquel physical therapy evaluation Supportive care Pain management, currently patient does not look in pain Care management consult DVT prophylaxis: Subcutaneous heparin GI prophylaxis: Protonix Prognosis guarded
[2024-08-31 08:22] LABS: Basophils # (A) 0.03 X 10*3/uL (0.00-0.10); Basophils % (A) 0.6 %; Eosinophils # (A) 0.24 X 10*3/uL (0.04-0.35); Eosinophils % (A) 4.6 %; HGB 14.3 g/dL (13.0-17.0); Lymphocytes # (A) 1.17 X 10*3/uL (0.90-5.00); Lymphocytes % (A) 22.2 %; MCH 31.8 pg (27.0-32.0); MCHC 33.3 g/dL (32.0-37.0); MCV 95.8 FL (80.0-97.0); Mean Platelet Volume 11.8 FL (9.5-12.2); Monocytes # (A) 0.53 X 10*3/uL (0.20-1.00); Monocytes % (A) 10.1 %; NRBC Per 100 WBC 0 X 10*3/uL (0.00-0.01); Neutrophils # (A) 3.27 X 10*3/uL (1.80-7.70); Neutrophils % (A) 61.9 %; Platelet Count 117 X 10*3/uL (140-440); RBC 4.49 X 10*6/uL (4.40-5.60); RDW 12.6 % (11.5-14.5); WBC 5.27 X 10*3/uL (4.50-10.00)
[2024-08-31 08:33] LABS: BUN/Creat Ratio 16.23 Ratio (12.00-20.00); Blood Urea Nitrogen 21.1 mg/dL (9.0-27.0); Calcium 8.4 mg/dL (8.7-10.3); Carbon Dioxide 21.9 mmol/L (21.6-31.8); Chloride 98 mmol/L (96-109); Glucose 95 mg/dL (70-110); Potassium 4.7 mmol/L (3.5-5.5); Sodium 129 mmol/L (135-145)
[2024-08-31] MEDS: SERTRALINE 25 MG TAB PO SCH (08:42)
[2024-08-31] MEDS: QUEtiapine 25 MG TAB PO PRN (08:42)
--- NOTE | 2024-08-31 15:01 | CDI ---
Documentation Clarification Form Date: 08/31/2024 02:38:00 PM From: Nikia Mead RN,CCDS Phone: [phone] Admit Date: 08/28/2024 02:42:00 PM Patient Name: Wiliam Collins Visit Number: [id number] Discharge Date: ATTENTION: The Clinical Documentation Specialists (CDI) and [facility] Coding Staff appreciate your assistance in clarifying documentation. Please respond to the clarification below the line at the bottom and electronically sign. The CDI & [facility] Coding staff will review the response and follow-up if needed. Please note: Queries are made part of the Legal Health Record. If you have any questions, please contact the author of this message via ITS. Doctor. Tani Sheet Your patient has the documented symptom of weakness, and debility . Additional clarification regarding the etiology/cause of this symptom is requested. History/Risk Factors: Coronary Artery Disease Dementia, Memory impairment Clinical Indicators 79 -year-old male with a past medical history significant for dementia presented with weakness. Reports Treatment about a week ago patient was diagnosed with a UTI by PCP and was treated with antibiotics. Progressive worsening until unable to ambulate as normal. 5/2 VS: 133/80 56 20 96% RA 5/2 Labs: WBC 4.28, RBC 4.26, PLT 117, NA 129; UA -Negative Treatment: Physical and Occupational Therapy evaluation Clinical social professionals to assist Rehab Is there a corresponding diagnosis/etiology for this symptom of weakness? [ ] Age related physical debility [ x ] Age related cognitive decline [ ] Unable to determine [ ] Other, please specify (Template Last Reviewed: May 2020) MTDD
[2024-08-31] MEDS ORDERED: traZODone HCL 50 MG TAB PO PRN (23:26)
--- NOTE | 2024-08-31 23:35 | P.PN ---
Subjective Progress Note Date: 08/31/24 This is a pleasant 79 years old male with past medical history of multiple medical problems Was brought by the family because of his been falling lately more than usual and several times. Family and cannot take care of him. He cannot take of himself either. As per family he was recently treated for UTI. He has currently bilateral leg swelling. Patient himself looks he denies chest pain or dyspnea no other abdominal or urinary complaints. No headache or dizziness. Family request physical and Occupational Therapy evaluation for possible rehab placement He is hemodynamically stable and afebrile, CBC is unremarkable. Sodium is low at 129 which will contribute to his presentation, 08/29 Family were at bedside patient was looking comfortable sitting up in chair. He slept well last night and family were very happy about that he was started on Seroquel 12.5 mg last night Through the day he required another dose. His sodium is improved to 131 today Will check EKG tomorrow Patient is still pending placement 08/30 Patient remains confused but pleasant he got agitated at time and family req uesting to increase his Seroquel. And they agreed to change Celexa to Zoloft to decrease the chances of drug interaction. He got agitated when he was to elope We checked also bladder scan which was not elevated Family request to increase Seroquel. Change Celexa to Zoloft to decrease drug- drug interaction 08/31/2024 Patient is seen and evaluated in follow-up today with case management following as family was discussing possible hospice versus possible ECF for rehab. Patient is significantly weak and has had clinical decline and most recently had urinary tract infection. Sodium is also noted to be 129 and will follow-up on repeat labs. Patient to be evaluated by PT/OT therapy and will discuss further with case management regarding discharge planning. Patient has been having intermittent periods of restlessness and per family does not appear to be sleeping well. Patient was started on Seroquel although family is concerned about this medication. Will add trazodone as needed at night. Recommend frequent family reorientation at bedside. review of systems: Constitutional: No reports of fatigue, fever, or chills Cardiovascular: No reports of chest pain or palpitations Respiratory: No reports of shortness of breath or cough GI: No reports of nausea, vomiting, or diarrhea : No reports of dysuria or retention Neurovascular: reports of weakness All medications have been reviewed Physical exam: GENERAL: The patient is awake and pleasantly confused, not in any acute di stress. More alert with family present. Well developed, elderly appearing HEENT: Pupils are round and equally reacting to light. EOMI. No scleral icterus. No conjunctival pallor. Normocephalic, atraumatic. No pharyngeal erythema. No thyromegaly. CARDIOVASCULAR: S1 and S2 muffled PULMONARY: Diminished breath sounds bilaterally otherwise chest is clear to auscultation, no wheezing , no crackles. ABDOMEN: Soft, nontender, nondistended, normoactive bowel sounds. No palpable organomegaly. MUSCULOSKELETAL: No joint swelling or deformity. EXTREMITIES: No cyanosis, clubbing, or pedal edema. NEUROLOGICAL: Gross neurological examination did not reveal any focal deficits. Diffusely weak SKIN: No rashes. no petechiae. Assessment: Generalized weakness, with difficulty ambulating, becoming more difficult to care for at home Dementia Hyponatremia, possibly secondary to poor oral intake Coronary artery disease history BPH History of UTI History of cardiomyopathy GI prophylaxis DVT prophylaxis No code Plan: Patient with multiple family members at bedside discussing further with case management regarding discharge planning and hospice consult was placed and pending at this time. Family is considering possible ECF with rehab or possible hospice at a facility. Family met with [facility] and he does not meet criteria at this time. Family is concerned that patient is very restless and was recently started on Seroquel and increased and they are concerned with this medication. Will hold for now and continue with as needed trazodone at night for sleep. Family reports patient has not been sleeping well Recommend frequent reorientation with family present at bedside is much as possible physical therapy evaluation with case management following will follow-up regarding discharge planning Continue supportive care DVT prophylaxis: Subcutaneous heparin GI prophylaxis: Protonix Overall prognosis is guarded at this time The impression and plan of care has been dictated by Promise Bronson, Nurse Practitioner as directed. Dr. Mikhail MD I have performed a history and examination and MDM of this patient, discussed the same with the dictator, and agree with the dictator's assessment and plan as written ,documented as a scribe. Based on total visit time, I have performed more than 50% of the visit. Objective - Vital Signs Vital signs: Vital Signs Temp 97.6 F 08/31/24 07:55 Pulse 87 08/31/24 07:55 Resp 17 08/31/24 07:55 BP 124/78 08/31/24 07:55 Pulse Ox 95 08/31/24 07:55 FiO2 Intake & Output 08/30/24 08/31/24 08/31/24 18:59 06:59 18:59 Intake Total 1080 Output Total 300 Balance 780 Intake: Oral 1080 Output: Urine 300 Other: Voiding Method Urinal # Voids 4 4 1 - Labs CBC & Chem 7: 08/31/24 02:56 08/31/24 02:56 Labs: Abnormal Lab Results - Last 24 Hours (Table) 08/30/24 08/30/24 08/31/24 Range/Units 03:46 03:46 02:56 Plt Count 126 L 117 L (140-440) X 10*3/uL Sodium 132 L (135-145) mmol/L Est GFR (CKD-EPI) (>=60) Calcium 8.5 L (8.7-10.3) mg/dL 08/31/24 Range/Units 02:56 Plt Count (140-440) X 10*3/uL Sodium 129 L (135-145) mmol/L Est GFR (CKD-EPI) 55 L (>=60) Calcium 8.4 L (8.7-10.3) mg/dL
[2024-09-01 06:44] VITALS: RESP 18
[2024-09-01 08:34] LABS: ALT 11 U/L (10-49); AST 15 U/L (14-35); Albumin 3.5 g/dL (3.8-4.9); Albumin/Globulin Ratio 1.17 Ratio (1.60-3.17); Alkaline Phosphatase 64 U/L (41-126); BUN/Creat Ratio 16.07 Ratio (12.00-20.00); Blood Urea Nitrogen 22.5 mg/dL (9.0-27.0); Calcium 8.5 mg/dL (8.7-10.3); Carbon Dioxide 24.1 mmol/L (21.6-31.8); Chloride 99 mmol/L (96-109); Glucose 88 mg/dL (70-110); Potassium 4.8 mmol/L (3.5-5.5); Sodium 131 mmol/L (135-145); Total Bilirubin 1.1 mg/dL (0.3-1.2); Total Protein 6.5 g/dL (6.2-8.2)
[2024-09-01] MEDS: PANTOPRAZOLE 40 MG TABLET PO SCH (09:08)
[2024-09-01] MEDS: QUEtiapine 25 MG TAB PO SCH (10:40)
[2024-09-01 13:37] VITALS: BP 102/67; PULSE 57; TEMP 97.7
--- NOTE | 2024-09-01 15:07 | P.DS ---
Providers Date of admission: 08/28/24 14:42 Expected date of discharge: 09/01/24 Attending physician: Tani Jimenez MD Primary care physician: Sergio Johnson [facility] Course: Final diagnosis Generalized weakness, with difficulty ambulating, becoming more difficult to care for at home Dementia Hyponatremia, possibly secondary to poor oral intake Coronary artery disease history BPH History of UTI History of cardiomyopathy GI prophylaxis DVT prophylaxis No code Discharge disposition Patient is being discharged in a stable condition with guarded prognosis to [facility]. Patient will follow-up with Dr. Ayala in the outpatient setting upon discharge. Patient is to continue with [facility] services . Total time taken is greater than 35 minutes. Hospital course This is a 79-year-old male who was recently admitted with increased weakness with difficulty in ambulating more difficult to care for in the home with history of dementia. Patient and family discussing hospice and have met with [facility] as they initially wanted the hospice house although have met with [facility] and will be going to [facility] with [facility] services. Patient doing well and will continue Seroquel daily per family request. Patient is afebrile and tolerating diet with no reported nausea or vomiting noted. Currently no reports of chest pain, shortness of breath, or palpitations. Patient is afebrile. No reports of nausea or vomiting and patient is tolerating diet. Patient will be going to [facility] today. Physical exam: Gen: This is a 79-year-old male who is awake, alert and oriented x 1-2, baseline, well-developed, elderly appearing HEENT: Head is atraumatic, normocephalic. Pupils equal, round. Sclerae is anicteric. NECK: Supple. No JVD. No lymphadenopathy. No thyromegaly. LUNGS: Clear to auscultation. No wheezes or rhonchi. No intercostal retractions. HEART: Regular rate and rhythm. No murmur. ABDOMEN: Soft. Bowel sounds are present. No masses. No tenderness. EXTREMITIES: No pedal edema. No calf tenderness. NEUROLOGICAL: Patient is awake, alert and oriented x 1-2. Cranial nerves 2 through 12 are grossly intact. Please refer to medication reconciliation sheet for a list of medications. The impression and plan of care has been dictated by Promise Bronson, Nurse Practitioner as directed. Dr. Mikhail MD I have performed a history and examination and MDM of this patient, discussed the same with the dictator, and agree with the dictator's assessment and plan as written ,documented as a scribe. Based on total visit time, I have performed more than 50% of the visit. Patient Condition at Discharge: Fair Plan - Discharge Summary New Discharge Prescriptions: New traZODone HCL [Desyrel] 50 mg PO HS PRN tab PRN Reason: Insomnia QUEtiapine [SEROquel] 25 mg PO DAILY tab Heparin Sodium,Porcine (1 ml) [Heparin Sodium] 5,000 unit SQ Q12HR each Pantoprazole [Protonix] 40 mg PO AC-BRKFST tab Acetaminophen Tab [Tylenol] 650 mg PO Q6HR PRN tab PRN Reason: Mild Pain Or Fever > 100.5 Continue Metoprolol Tartrate [Lopressor] 25 mg PO BID #60 tab Aspirin EC [Ecotrin Low Dose] 81 mg PO DAILY Divalproex Sodium [Depakote] 500 mg PO BID Atorvastatin [Lipitor] 40 mg PO DAILY Tamsulosin [Flomax] 0.4 mg PO DAILY Citalopram Hydrobromide [CeleXA] 20 mg PO DAILY Discontinued Vibegron [Gemtesa] 75 mg PO DAILY clonazePAM 0.5 - 1 mg PO DAILY PRN PRN Reason: onset of agitation Cephalexin [Keflex] 500 mg PO TID Famotidine [Pepcid] See Taper PO DIRECTED Discharge Medication List Tamsulosin [Flomax] 0.4 mg PO DAILY 08/25/22 [History] Metoprolol Tartrate [Lopressor] 25 mg PO BID #60 tab 08/28/22 [Rx] Aspirin EC [Ecotrin Low Dose] 81 mg PO DAILY 08/28/24 [History] Atorvastatin [Lipitor] 40 mg PO DAILY 08/28/24 [History] Citalopram Hydrobromide [CeleXA] 20 mg PO DAILY 08/28/24 [History] Divalproex Sodium [Depakote] 500 mg PO BID 08/28/24 [History] Acetaminophen Tab [Tylenol] 650 mg PO Q6HR PRN tab 09/01/24 [Rx] Heparin Sodium,Porcine (1 ml) [Heparin Sodium] 5,000 unit SQ Q12HR each 09/01/24 [Rx] Pantoprazole [Protonix] 40 mg PO AC-BRKFST tab 09/01/24 [Rx] QUEtiapine [SEROquel] 25 mg PO DAILY tab 09/01/24 [Rx] traZODone HCL [Desyrel] 50 mg PO HS PRN tab 09/01/24 [Rx] Follow up Appointment(s)/Referral(s): Sergio Johnson DO [Primary Care Provider] - 1-2 days Activity/Diet/Wound Care/Special Instructions: Patient is going to [employer] Activity as tolerated Continue taking medications as prescribed Follow-up primary care provider on discharge Discharge Disposition: TRANSFER TO SNF/ECF
[2024-09-01] MEDS: QUEtiapine 25 MG TAB PO STA (17:26)
== END 2024-09-01 18:31 | disposition hospice, inpatient (51) | DRG 884 ==
LOC: EC 12:13 → 4SSUR 14:42
PROVIDERS: ADMIT Internal Medicine; ATTEND Internal Medicine
DX: R41.81 Age-related cognitive decline (principal); E87.1 Hypo-osmolality and hyponatremia; F03.911 Unspecified dementia, unspecified severity, with agitation; I42.9 Cardiomyopathy, unspecified; I25.10 Atherosclerotic heart disease of native coronary artery without angina pectoris; N40.0 Benign prostatic hyperplasia without lower urinary tract symptoms; Z87.440 Personal history of urinary (tract) infections; Z79.82 Long term (current) use of aspirin; Z79.899 Other long term (current) drug therapy; Z88.5 Allergy status to narcotic agent; Z87.891 Personal history of nicotine dependence; I25.2 Old myocardial infarction
CPT/HCPCS: 36415; 70450; 71046; 80048; 80053; 81003; 83605; 83880; 84484; 85025; 87636; 93005; 96360; 96361; 99285